=== PATIENT | female | born 1955 | race Caucasian/White ===

== ENCOUNTER 2018-10-14 10:17 | Emergency (ER) | payer MEDICARE ==
[2018-10-14 10:34] VITALS: TEMP 98.3
[2018-10-14] MEDS ORDERED: METOCLOPRAMIDE 5 MG/ML 2 ML VIAL IVP STA (11:14)
[2018-10-14] MEDS ORDERED: ORPHENADRINE 30 MG/ML 2 ML VIAL IVP STA (11:14)
[2018-10-14] MEDS ORDERED: diphenhydrAMINE 50 MG/ML 1 ML VIAL IVP STA (11:14)
[2018-10-14] MEDS ORDERED: ACETAMINOPHEN IV (For NPO) 1,000 MG in EMPTY BAG 1 BAG IVPB STA (11:14)
[2018-10-14] MEDS ORDERED: SODIUM CHLORIDE 0.9% 1,000 ML IV STA (11:14)
--- NOTE | 2018-10-14 11:26 | ED ---
Psych HPI - General Chief Complaint: Psychiatric Symptoms Stated Complaint: Headache Time Seen by Provider: 10/14/18 11:03 Source: patient, RN notes reviewed Mode of arrival: ambulatory Limitations: no limitations - History of Present Illness Initial Comments: This a 63-year-old female presents emergency Department with chief complaint of severe headache. Patient states she's had a for 5 days and which she has chronic migraines. Patient states she normally takes fierce that and a muscle relaxer. Patient states that it's not helping at this time. She does admit slight nausea no vomiting no diarrhea no constipation. Denies fever, chills, chest pain, shortness breath, focal weakness. Patient states that this is one of her worst headaches but was not a sudden onset of headache. Patient states it does feel typical for her headaches. Patient denies any blurred vision though she admits to photophobia. Patient states that the pain makes her so miserable that she does not want to live anymore though she states she is not suicidal. - Related Data Home Medications Medication Instructions Recorded Confirmed Amitriptyline HCl [Elavil] 100 mg PO HS 10/14/18 10/14/18 Atenolol [Tenormin] 50 mg PO DAILY 10/14/18 10/14/18 Butalb/APAP/Caff 50-325-40Mg 1 - 2 tab PO Q4H PRN 10/14/18 10/14/18 [Fioricet 50-325-40] Cholecalciferol (Vitamin D3) 2,000 unit PO DAILY 10/14/18 10/14/18 [Vitamin D3] Cyclobenzaprine [Flexeril] 10 mg PO TID 10/14/18 10/14/18 Diclofenac Sodium Gel [Voltaren 2 gm TOPICAL QID 10/14/18 10/14/18 Gel] Famotidine [Pepcid] 20 mg PO BID 10/14/18 10/14/18 Levothyroxine Sodium [Synthroid] 100 mcg PO DAILY 10/14/18 10/14/18 Venlafaxine HCl [Effexor XR] 75 mg PO DAILY 10/14/18 10/14/18 Allergies Allergy/AdvReac Type Severity Reaction Status Date / Time Sulfa (Sulfonamide Allergy Rash/Hives Verified 10/14/18 11:02 Antibiotics) STEROIDS AdvReac Rapid Uncoded 10/14/18 11:02 Heart Rate Review of Systems ROS Statement: Those systems with pertinent positive or pertinent negative responses have been documented in the HPI. ROS Other: All systems not noted in ROS Statement are negative. Past Medical History Past Medical History: Fibromyalgia, Hypertension, Osteoarthritis (OA), Thyroid Disorder Additional Past Medical History / Comment(s): Diverticulitis; migraines History of Any Multi-Drug Resistant Organisms: None Reported Past Surgical History: Hysterectomy, Orthopedic Surgery, Tonsillectomy Past Psychological History: Anxiety, Depression Smoking Status: Never smoker Past Alcohol Use History: None Reported Past Drug Use History: None Reported General Exam General appearance: alert, in no apparent distress Head exam: Present: atraumatic, normocephalic, normal inspection Eye exam: Present: normal appearance, PERRL, EOMI. Absent: scleral icterus, conjunctival injection, periorbital swelling ENT exam: Present: normal exam, normal oropharynx, mucous membranes moist Neck exam: Present: normal inspection, full ROM. Absent: tenderness, meningismus, lymphadenopathy Respiratory exam: Present: normal lung sounds bilaterally. Absent: respiratory distress, wheezes, rales, rhonchi, stridor Cardiovascular Exam: Present: normal rhythm, normal heart sounds. Absent: systolic murmur, diastolic murmur, rubs, gallop, clicks GI/Abdominal exam: Present: soft, normal bowel sounds. Absent: distended, tenderness, guarding, rebound, rigid Extremities exam: Present: other (Full range of motion neurovascular intact) Neurological exam: Present: alert, oriented X3, CN II-XII intact, reflexes normal, other (Finger to nose intact bilaterally without over shooting). Absent : motor sensory deficit Skin exam: Present: warm, dry, intact, normal color. Absent: rash Course Vital Signs 10/14/18 10/14/18 10:24 14:09 Temperature 98.3 F Pulse Rate 133 H 77 Respiratory 18 16 Rate Blood Pressure 154/102 143/91 O2 Sat by Pulse 93 L 98 Oximetry Medical Decision Making - Medical Decision Making 63-year-old female presented for headache. CT was obtained no acute abnormality. Patient is neurologically intact. Lab work was obtained no acute abnormality's. Patient does have a history migraine. Patient is improved after medications. She states her headache has resolved. Patient stated to triage that she felt that she cannot tolerate the pain that she wanted though she states she is not suicidal them in the room agrees that she has not. Patient is safe for discharge return parameters were discussed. - Lab Data Result diagrams: 10/14/18 11:40 10/14/18 11:40 Lab Results 10/14/18 10/14/18 Range/Units 11:40 11:40 WBC 8.4 (3.8-10.6) k/uL RBC 4.94 (3.80-5.40) m/uL Hgb 15.2 (11.4-16.0) gm/dL Hct 45.1 (34.0-46.0) % MCV 91.2 (80.0-100.0) fL MCH 30.7 (25.0-35.0) pg MCHC 33.6 (31.0-37.0) g/dL RDW 12.2 (11.5-15.5) % Plt Count 306 (150-450) k/uL Neutrophils % 63 % Lymphocytes % 27 % Monocytes % 6 % Eosinophils % 1 % Basophils % 0 % Neutrophils # 5.3 (1.3-7.7) k/uL Lymphocytes # 2.3 (1.0-4.8) k/uL Monocytes # 0.5 (0-1.0) k/uL Eosinophils # 0.1 (0-0.7) k/uL Basophils # 0.0 (0-0.2) k/uL Sodium 142 (137-145) mmol/L Potassium 4.4 (3.5-5.1) mmol/L Chloride 107 (98-107) mmol/L Carbon Dioxide 26 (22-30) mmol/L Anion Gap 9 mmol/L BUN 15 (7-17) mg/dL Creatinine 0.62 (0.52-1.04) mg/dL Est GFR (CKD-EPI)AfAm >90 (>60 ml/min/1.73 sqM) Est GFR (CKD-EPI)NonAf >90 (>60 ml/min/1.73 sqM) Glucose 92 (74-99) mg/dL Calcium 10.8 H (8.4-10.2) mg/dL Total Bilirubin 0.5 (0.2-1.3) mg/dL AST 40 H (14-36) U/L ALT 42 (9-52) U/L Alkaline Phosphatase 99 (38-126) U/L Total Protein 7.7 (6.3-8.2) g/dL Albumin 4.9 (3.5-5.0) g/dL - EKG Data EKG Comments: EKG performed at 13:08 sinus tachycardia with rate of 106 IA 1:30 QRS 78 QT/QTC 342/454 normal axis, normal intervals Disposition Clinical Impression: Migraine Disposition: HOME SELF-CARE Condition: Stable Instructions: Migraine Headache (ED) Additional Instructions: Please return to the Emergency Department if symptoms worsen or any other concerns. Is patient prescribed a controlled substance at d/c from ED?: No Referrals: Bessy Abebe MD [Primary Care Provider] - 1-2 days Jacklyn Martinez MD [REFERRING] - 1-2 days Time of Disposition: 15:07
[2018-10-14 12:10] LABS: Basophils % (A) 0 %; Eosinophils # (A) 0.1 k/uL (0-0.7); Eosinophils % (A) 1 %; HCT 45.1 % (34.0-46.0); HGB 15.2 gm/dL (11.4-16.0); Lymphocytes # (A) 2.3 k/uL (1.0-4.8); Lymphocytes % (A) 27 %; MCH 30.7 pg (25.0-35.0); MCHC 33.6 g/dL (31.0-37.0); MCV 91.2 fL (80.0-100.0); Mean Platelet Volume 6.9; Monocytes # (A) 0.5 k/uL (0-1.0); Monocytes % (A) 6 %; Neutrophils # (A) 5.3 k/uL (1.3-7.7); Neutrophils % (A) 63 %; Platelet Count 306 k/uL (150-450); RBC 4.94 m/uL (3.80-5.40); RDW 12.2 % (11.5-15.5); WBC 8.4 k/uL (3.8-10.6)
[2018-10-14 12:23] LABS: ALT 42 U/L (9-52); AST 40 U/L (14-36); Albumin 4.9 g/dL (3.5-5.0); Alkaline Phosphatase 99 U/L (38-126); Anion Gap 9 mmol/L; Blood Urea Nitrogen 15 mg/dL (7-17); Calcium 10.8 mg/dL (8.4-10.2); Carbon Dioxide 26 mmol/L (22-30); Chloride 107 mmol/L (98-107); Glucose 92 mg/dL (74-99); Potassium 4.4 mmol/L (3.5-5.1); Sodium 142 mmol/L (137-145); Total Bilirubin 0.5 mg/dL (0.2-1.3); Total Protein 7.7 g/dL (6.3-8.2)
--- NOTE | 2018-10-14 13:11 | CT ---
EXAMINATION TYPE: CT brain wo con DATE OF EXAM: 10/14/2018 COMPARISON: None HISTORY: Severe ARREOLA since Thursday CT DLP: 1078.[address] of the brain was performed. The ventricles, basal cisterns and sulci overlying the cerebral convexities demonstrate mild enlargem ent. There is no evidence for intracranial hemorrhage or sulcal effacement. There is decreased attenuation about the periventricular white matter and deep white matter of both c erebral hemispheres, compatible with chronic small vessel ischemia. Differential diagnosis does inclu de demyelination. No mass effects are seen.No midline shift. Osseous calvarium is intact. If symptoms persist consider MRI. IMPRESSION: 1. Age related atrophic and chronic small vessel ischemic change without acute intracranial process s een at this time.
[2018-10-14] MEDS ORDERED: BUTA/APAP/CAF/COD 50-325-40-30 CAP PO STA (14:02)
[2018-10-14] MEDS ORDERED: KETOROLAC 30 MG/ML 1 ML VIAL IVP STA (14:02)
[2018-10-14 14:13] VITALS: BP 143/91; PULSE 77; RESP 16
== END 2018-10-14 15:30 | disposition home or self-care (01) ==
LOC: EC 10:17
DX: G43.909 Migraine, unspecified, not intractable, without status migrainosus (principal); M79.7 Fibromyalgia; I10 Essential (primary) hypertension; M19.90 Unspecified osteoarthritis, unspecified site; E07.9 Disorder of thyroid, unspecified; F41.9 Anxiety disorder, unspecified; F32.9 Major depressive disorder, single episode, unspecified; Z79.1 Long term (current) use of non-steroidal anti-inflammatories (NSAID); Z79.899 Other long term (current) drug therapy; Z88.2 Allergy status to sulfonamides; Z88.8 Allergy status to other drugs, medicaments and biological substances
CPT/HCPCS: 99284; 96365; 96375 ×4; 36415; 93005; 80053; 85025; 70450; J1200; J2360; J2765; J1885; J0131

== ENCOUNTER → 2018-10-28 | Outpatient (CLI) | payer MEDICARE | END | disposition home or self-care (01) | LOC: LABWHC1 12:59 | PROVIDERS: ATTEND Psychiatry & Neurology Neurology | DX: Z51.81 Encounter for therapeutic drug level monitoring (principal) | CPT/HCPCS: 36415; 82565; 84520 ==

== ENCOUNTER → 2018-11-25 | Outpatient (CLI) | payer MEDICARE ==
--- NOTE | 2018-11-25 13:28 | US ---
EXAMINATION TYPE: US thyroid st tissue head/neck DATE OF EXAM: 11/25/2018 COMPARISON: NONE CLINICAL HISTORY: E03.9 Hypothyroid; Takes thyroid medicine GLAND SIZE: Right Lobe: 3.9 x 1.0 x 1.2 cm Overall Parenchyma: homogenous Left Lobe: 3.6 x 0.8 x 0.9 cm Overall Parenchyma: homogeneous Isthmus Thickness: 0.3 cm NODULES RIGHT: # of nodules measured on right: 1 largest of multiple small nodules 1. 0.5 X 0.4 x 0.3 cm hypoechoic mixed nodule at the lower pole with well-defined margins. This no dule is wider than tall and shows intranodular vascularity. LEFT: # of nodules measured on left: 1 largest of multiple small nodules 1. 0.4 X 0.3 x 0.2 cm hypoechoic mixed nodule at the upper pole with well-defined margins. This no dule is wider than tall and shows no intranodular vascularity. ISTHMUS: # of nodules measured in the isthmus: 0 Bilateral neck scanned: no evidence of lymphadenopathy. IMPRESSION: 1. Multinodular thyroid multiple subcentimeter nodules bilaterally
== END ==
LOC: RADUSWWP 12:14
PROVIDERS: ATTEND Family Medicine
DX: E04.2 Nontoxic multinodular goiter (principal)
CPT/HCPCS: 76536

== ENCOUNTER → 2019-01-28 | Outpatient (CLI) | payer MEDICARE ==
--- NOTE | 2019-01-28 08:49 | US ---
EXAMINATION TYPE: US abdomen complete DATE OF EXAM: 01/28/2019 COMPARISON: NONE CLINICAL HISTORY: R94.5 Abnormal LFTS. Abnormal labs. Hx of 2 liver bx- per patient, came back as fa tty liver. GB removed in 2003. EXAM MEASUREMENTS: Liver Length: 13.6 cm CBD: 1.3 cm CHD: 1.1 cm Spleen: 6.9 cm Right Kidney: 9.6 x 4.8 x 4.2 cm Left Kidney: 9.3 x 4.8 x 4.7 cm Pancreas: Head and tail not well visualized due to overlying bowel gas. Appears echogenic in appear ance. Main pancreatic duct = 2.0 mm, within normal limits Liver: Cystic appearing lesion seen in right lobe = 0.9 x 0.9 x 0.8 cm Gallbladder: Surgically absent Evidence for sonographic Velasco's sign: neg CBD: Appears dilated CHD: Appears dilated Spleen: Limited visualization due to shadow Right Kidney: wnl Left Kidney: wnl Upper IVC: wnl Abd Aorta: No AAA visualized The intrahepatic portion of the IVC and proximal abdominal aorta are within normal limits. There is no evidence of cholelithiasis. Common bile duct is unremarkable. The visualized portions of the white creas are homogenous. The spleen is unremarkable. Kidneys are symmetric and free of hydronephrosis. No renal lesions are seen. IMPRESSION: 1. Solitary 9 mm hepatic cyst. 2. Despite the known hepatic steatosis the liver appears sonographically homogeneous other than the h epatic cyst. Low-grade hepatic steatosis may be sonographically occult.
== END | disposition home or self-care (01) ==
LOC: RADUSWWP 07:57
PROVIDERS: ATTEND Family Medicine
DX: K76.89 Other specified diseases of liver (principal)
CPT/HCPCS: 76700

== ENCOUNTER → 2019-03-17 | Outpatient (CLI) | payer MEDICARE ==
[2019-03-17 16:59] LABS: T4, Free (Free Thyroxine) 1.2 ng/dL (0.80-1.80)
== END | disposition home or self-care (01) ==
LOC: LABWHC1 09:29
PROVIDERS: ATTEND Internal Medicine Endocrinology, Diabetes & Metabolism
DX: E04.2 Nontoxic multinodular goiter (principal); E03.8 Other specified hypothyroidism
CPT/HCPCS: 36415; 84439; 84443

== ENCOUNTER → 2019-06-06 | Outpatient (CLI) | payer MEDICARE ==
[2019-06-06 17:28] LABS: Anti-Smith Ab Interp NEGATIVE (NEGATIVE); Cyclic Citrull Pep IgG Unit <0.5 U/mL; Cyclic Citrullinated Pep IgG NEGATIVE (NEGATIVE); DNA Double-Stranded Indetermin (NEGATIVE); Scleroderma SC-70 Ab <0.2 AI
== END | disposition home or self-care (01) ==
LOC: LABWHC1 07:59
PROVIDERS: ATTEND Nurse Practitioner Family
DX: M25.50 Pain in unspecified joint (principal); I49.9 Cardiac arrhythmia, unspecified
CPT/HCPCS: 36415; 83516; 86038; 86200; 86225; 86235; 93005

== ENCOUNTER → 2019-10-19 | Outpatient (CLI) | payer MEDICARE | END | disposition home or self-care (01) | LOC: LABPAT 10:06 | PROVIDERS: ATTEND Orthopaedic Surgery | DX: Z01.812 Encounter for preprocedural laboratory examination (principal) | CPT/HCPCS: 87070 ==

== ENCOUNTER 2019-11-08 08:14 | Inpatient (IN) | payer MEDICARE ==
[2019-10-31 14:04] VITALS: BMI 27.1
--- NOTE | 2019-11-07 09:05 | HP ---
HISTORY AND PHYSICAL CHIEF COMPLAINT: Right shoulder pain. HISTORY OF PRESENT ILLNESS: The patient is a 64-year-old, right-hand dominant, disabled female who presents with progressive right shoulder pain for the past year. She is having pain with overhead use and activity. She has tried previous injections and therapy along with medications without much relief. She has a history of arthroscopy in 2013. PAST MEDICAL HISTORY: Significant for fibromyalgia, osteoporosis, hypertension, hypothyroidism, depression. PAST SURGICAL HISTORY: Significant for bilateral foot surgery, bilateral carpal tunnel release, cholecystectomy, left total knee arthroplasty, right shoulder arthroscopy, laparoscopy, colonoscopy, heart catheterization. CURRENT MEDICATIONS: 1. Amitriptyline. 2. Effexor. 3. Oxycodone. 4. Famotidine. 5. Synthroid. 6. Tenormin. ALLERGIES: To SULFA. FAMILY HISTORY: Significant for heart disease and cancer. SOCIAL HISTORY: Negative for current tobacco or alcohol use. 16 POINT REVIEW OF SYSTEMS: Otherwise reviewed and is noncontributory. PHYSICAL EXAMINATION: On examination, the patient is approximately 5 foot 1, 144 pounds of mesomorphic habitus. HEENT exam is nonfocal. She has limited cervical spine motion with positive Spurling's. On examination of her right shoulder, she is tender about the anterior glenohumeral joint. She has moderate subacromial crepitus. Active range of motion, forward elevation 40 degrees, external rotation with arms at side 20 degrees, internal rotation to the buttock. Passive forward elevation is 80 degrees. Impingement test and Neer test are positive. Light touch is diminished over the deltoid. Her distal neurovascular exam otherwise appears intact in the right upper extremity. X-rays of the right shoulder obtained in the office show moderate to severe glenohumeral joint osteoarthrosis with maintained humeral head to acromial distance. IMPRESSION: 1. Right glenohumeral joint osteoarthritis-symptomatic. 2. Cervical degenerative disc disease with radiculopathy. RECOMMENDATIONS: I talked to the patient at length regarding her condition and treatment options. At this point, she is quite symptomatic and opts to proceed with surgery. Will plan to proceed with right total shoulder arthroplasty. She did see a spine surgeon who recommended proceeding with shoulder surgery prior to any intervention regarding her cervical spine. Risks and benefits were discussed at length in layman's terms. MMODL / IJN: [id number] /
[~2019-11-08 08:14] MED LIST: ACETAMINOPHEN TAB 500 MG TAB PO ONE; DEXAMETHASONE SOD PHOSPHATE 10 MG/ML 1 ML VIAL IV ONE; LIDOCAINE 1% 20 ML VIAL (10MG/ML) FOR IV START INTRADERMA PRN; MELOXICAM 7.5 MG TAB PO ONE; METOCLOPRAMIDE 5 MG/ML 2 ML VIAL IVP PRN; MIDAZOLAM 2 MG/2 ML VIAL IV PRN; ONDANSETRON 4 MG/2 ML VIAL IVP ONE; TRANEXAMIC ACID 1,000 MG in SODIUM CHLORIDE 0.9% 100 ML IVPB ONE; fentaNYL (PF) 50 MCG/ML 2 ML AMP IVP PRN
[2019-11-08 12:32] VITALS: RESP 16
[2019-11-08] MEDS: LACTATED RINGERS 1,000 ML IV SCH (12:42)
[2019-11-08] MEDS ORDERED: fentaNYL (PF) 50 MCG/ML 2 ML AMP IV ONE (13:09)
[2019-11-08 13:11] LABS: Potassium 4.1 mmol/L (3.5-5.1)
--- NOTE | 2019-11-08 13:39 | P.ANPRN ---
Procedure Note - Anesthesia - Nerve Block Performed Right Interscalene Single Time Out Performed: Yes (1308) Date of Procedure: 11/08/19 Procedure Start Time: 13:08 Procedure Stop Time: 13:14 Location of Patient: PreOp Indication: Acute Post-Operative Pain, Requested by Surgeon (cali) Specifically requested for management of pain by DrAnnel: David Montes De Oca Sedation Type: Sedate with meaningful contact maintained Preparation: Sterile Prep Position: Supine Catheter: None Needle Types: Pajunk Needle Gauge: 21 Ultrasound used to visualize needle placement: Yes Ultrasound used to observe medication spread: Yes Injectate: Other (see comment) (Lido 2% with epi 15cc & Ropi 0.5% 15cc) Blood Aspirated: No Pain Paresthesia on Injection Noted: No Resistance on Injection: Normal Image Stored and Saved: Yes Events: Uneventful and Well Tolerated
[2019-11-08] MEDS ORDERED: SUCCINYLCHOLINE CHLORIDE 100 MG/5 ML SYR IV ONE (13:48)
[2019-11-08] MEDS ORDERED: GLYCOPYRROLATE 0.2 MG/ML 2 ML VIAL ONE (13:48)
[2019-11-08] MEDS ORDERED: LIDOCAINE 1% INJ 10MG/ML (20 ML MDV) ONE (13:48)
[2019-11-08] MEDS ORDERED: fentaNYL (PF) 50 MCG/ML 2 ML AMP ONE (13:48)
[2019-11-08] MEDS ORDERED: TRANEXAMIC ACID 1,000 MG/10 ML VIAL ONE (13:48)
[2019-11-08] MEDS ORDERED: ROCURONIUM BROMIDE 10 MG/ML 10 ML VIAL IV ONE (13:48)
[2019-11-08] MEDS ORDERED: SODIUM CHLORIDE 0.9% 100 ML BAG ONE (13:48)
[2019-11-08] MEDS ORDERED: ROPIVACAINE 5 MG/ML 30 ML VIAL ONE (13:48)
[2019-11-08] MEDS ORDERED: MIDAZOLAM 2 MG/2 ML VIAL ONE (13:48)
[2019-11-08] MEDS ORDERED: PHENYLEPHRINE-0.9% NACL SYG 1 MG/10 ML SYRINGE ONE (13:48)
[2019-11-08] MEDS ORDERED: LIDOCAINE 2%-EPI 1:100,000 20 ML VIAL ONE (13:48)
[2019-11-08] MEDS ORDERED: PROPOFOL 10 MG/ML 20 ML VIAL IV ONE (13:48)
[2019-11-08] MEDS ORDERED: NEOSTIGMINE 1 MG/ML 10 ML VIAL ONE (13:48)
[2019-11-08] MEDS ORDERED: ceFAZolin 3,000 MG in SODIUM CHLORIDE 0.9% IRRIGATIO 3,000 ML IRRIGATION ONE (14:17)
[2019-11-08] MEDS ORDERED: ONDANSETRON 4 MG/2 ML VIAL IVP PRN (15:22)
[2019-11-08] MEDS ORDERED: HYDROmorphone 0.5 MG/0.5 ML SYRINGE IVP PRN (15:22)
[2019-11-08] MEDS ORDERED: LACTATED RINGERS 1,000 ML IV ONE ×2 (15:23)
[2019-11-08] MEDS ORDERED: ACETAMINOPHEN TAB 500 MG TAB PO PRN (15:25)
--- NOTE | 2019-11-08 15:49 | P.OP ---
Date of Procedure: 11/08/19 Preoperative Diagnosis: Right glenohumeral joint osteoarthrosissevere Postoperative Diagnosis: Same Procedure(s) Performed: Right total shoulder arthroplasty Implants: [employer] size 10 press-fit humeral stem with size 1 body, 40 mm pegged cemented glenoid, 44 x 15 mm eccentric humeral head. Anesthesia: susie DELACRUZ Surgeon: David Montes De Oca Security And Compliance Analyst #1: Angelo Lamb Estimated Blood Loss (ml): 150 Pathology: other (Humeral head) Condition: stable Disposition: PACU Indications for Procedure: The patient is a 64-year-old female who presents with progressive right shoulder pain secondary osteoarthrosis despite conservative measures. A discussion of the risks and benefits of operative intervention versus continued conservative measures. It was made with patient. She opted to proceed with surgery. Operative risks to include infection, neurovascular injury, development of blood clots, possible component loosening, possible fracture, possible instability and need for subsequent procedures was discussed. Informed consent was obtained. Operative Findings: As below Description of Procedure: The patient was brought to the operating room, and after induction of general anesthesia was placed in the beachchair position. The bony prominences were appropriately padded. The right upper extremity was prepped and draped in normal fashion. A deltopectoral incision was then made lateral to the coracoid process extending approximately 12 cm. The skin was incised sharply. Subcutaneous tissues were divided bluntly. Electrocautery was used for hemost asis. The deltopectoral interval was identified and the cephalic vein gently retracted laterally with the deltoid. Subdeltoid adhesions were bluntly dissected. A self-retaining retractor was placed. The clavipectoral fascia was opened and the conjoined tendon gently retracted medially. The upper one third of the pectoralis major was released to help facilitate exposure. The biceps was identified and the sheath was opened. The rotator interval was opened. The biceps was tenotomized and allowed to retract distally. The lesser tuberosity osteotomy was performed with a small sagittal saw. This completed with an osteotome. The humeral head was then exposed releasing the capsule off the humeral neck. The shoulder was gently dislocated. A starting hole was made in the head in line with the humeral shaft. The shaft was reamed by hand up to 10 mm. There is good distal chatter. The cutting guide was placed planning on a cut flush with the rotator cuff insertion and 30 of retroversion. The cutting block was pinned in place. The humeral head cut was then made. This measured most appropriately at 44 x 15 mm. Residual inferior osteophytes were carefully removed flush with the [place] cortical bone. A posterior glenoid retractor was placed. The glenoid was then exposed releasing the labrum from the 12-6 o'clock position. Residual labral tissue was removed. The glenoid sized most appropriate 40 mm. A guidewire was then inserted planning on the appropriate version. The glenoid was reamed down to a bleeding bony surface. The central pedicle was drilled. The alignment guide was placed in the peripheral peg holes drilled. The trial size 40 mm glenoid was placed and was fully seated. There was good anterior to posterior and inferior to superior fit. The trial component was removed. Pulsatile lavage was utilized. The bony surface was dried. The peripheral peg holes were then pressurized with cement utilizing a syringe. Excess cement was removed. A central peg glenoid was then placed and was fully seated. This was gently impacted. This was held in place until the cement had sufficiently hardened. Attention was then paid again towards preparing the proximal humerus. The appropriate broach was placed in 30 of retroversion and was fully seated. An eccentric 44 x 15 mm humeral head was placed. The shoulder was gently reduced. It was taken through a range of motion. It was felt to be stable in flexion and extension with internal and external rotation. I felt there was adequate tenriism of soft tissue tension. The shoulder was gently dislocated. The trial components were then removed. A #2 Ethibond was placed laterally for reattachment of the lesser tuberosity. The humeral stem was inserted in 30 of retroversion and was fully seated. There was good rotational stability. The eccentric 44 x 15 mm humeral head was gently impacted. The shoulder was then gently reduced and taken through range of motion and was felt to be stable. Pulsatile lavage was utilized. Lesser tuberosity was reattached utilizing #2 Ethibond suture. The rotator interval was closed with #2 Ethibond suture. She had minimal drainage at this point therefore a deep drain was not placed. The deltopectoral interval was closed with interrupted 2-0 Vicryl sutures. The subcu tissues were reapproximated with interrupted 2-0 Vicryl sutures. The skin was reprepped with 3-0 subcuticular Prolene suture. Steri-Strips were applied. A sterile dressing was applied in addition to a sling. The patient was then awoken from general anesthesia and transferred to recovery room in good condition. Blood loss was estimated at 150 mL. No complications were incurred. Sponge and needle counts were correct at the end the case. Brennon VELOZ assisted during the case to include the major components such as exposure, bone resection, implantation, and closure.
[2019-11-08] MEDS: HYDROmorphone 0.5 MG/0.5 ML SYRINGE IVP PRN ×4 (16:41→17:19)
--- NOTE | 2019-11-08 16:44 | XR ---
Right shoulder. HISTORY: Right shoulder arthroplasty Single frontal view of the right shoulder Patient is status post right shoulder arthroplasty. There is anatomic alignment. Lucency present in t he soft tissues. Right lung apex is unremarkable as visualized. There are overlying artifacts. Bone m ineralization is reduced. IMPRESSION: Orthopedic follow-up.
[2019-11-08] MEDS: traMADol 50 MG TAB PO SCH ×2 (19:22→21:22)
[2019-11-08] MEDS: HYDROmorphone 1 MG/ML 1 ML SYRINGE IVP PRN ×2 (19:24→22:52)
[2019-11-08] MEDS: HYDROcodone/APAP 7.5-325MG 1 EACH TAB PO PRN (21:21)
--- NOTE | 2019-11-08 21:32 | P.CONS ---
History of Present Illness - Reason for Consult Consult date: 11/08/19 - History of Present Illness The patient is a 64-year-old female with a PMH of fibromyalgia, hypertension, hypothyroidism, and depression who was admitted to the hospital for scheduled right shoulder arthroplasty. The patient reports that she had been struggling with right shoulder pain due to osteoarthritis for many years. Conservative measures including pain control had failed. The patient underwent the procedure uneventfully earlier today. She was seen postoperatively on the surgical unit. She reported continued pain, 6 out of 10 of the right shoulder. She denied any additional complaints. She denied chest pain, shortness of breath, nausea, vomiting, fever, chills. She denied any numbness or tingling of the right arm. Review of Systems Pertinent positives and negatives as discussed in HPI, a complete review of systems was performed and all other systems are negative. Past Medical History Past Medical History: Fibromyalgia, Hypertension, Osteoarthritis (OA), Thyroid Disorder Additional Past Medical History / Comment(s): Diverticulitis; migraines History of Any Multi-Drug Resistant Organisms: None Reported Past Surgical History: Cholecystectomy, Hysterectomy, Orthopedic Surgery, Tonsillectomy Additional Past Surgical History / Comment(s): left knee arthroscopy x 2, left knee replacement, kd carpal tunnel, kd feet bunionectomy, arthroscopy rt shoulder Past Anesthesia/Blood Transfusion Reactions: No Reported Reaction Past Psychological History: Anxiety, Depression Smoking Status: Never smoker Past Alcohol Use History: None Reported Past Drug Use History: None Reported - Past Family History Father Family Medical History: Cancer Mother Family Medical History: Cancer Medications and Allergies Home Medications Medication Instructions Recorded Confirmed Type Amitriptyline HCl [Elavil] 100 mg PO PC-SUPPER 10/14/18 11/08/19 History Atenolol [Tenormin] 50 mg PO PC-SUPPER 10/14/18 11/08/19 History Butalb/APAP/Caff 50-325-40Mg 1 - 2 tab PO Q4H PRN 10/14/18 11/08/19 History [Fioricet 50-325-40] Cholecalciferol (Vitamin D3) 2,000 unit PO DAILY 10/14/18 11/08/19 History [Vitamin D3] Diclofenac Sodium Gel [Voltaren 2 gm TOPICAL QID 10/14/18 11/08/19 History Gel] Famotidine [Pepcid] 20 mg PO BID 10/14/18 11/08/19 History Amoxicillin(Dose Unknown) 1 tab PO DIRECTED PRN 10/31/19 11/08/19 History Levothyroxine Sodium [Synthroid] 88 mcg PO DAILY 10/31/19 11/08/19 History QUEtiapine XR [SEROquel XR] 300 mg PO HS 10/31/19 11/08/19 History Sertraline [Zoloft] 100 mg PO DAILY 10/31/19 11/08/19 History Allergies Allergy/AdvReac Type Severity Reaction Status Date / Time Sulfa (Sulfonamide Allergy Severe Rash/Hives Verified 11/08/19 12:26 Antibiotics) STEROIDS AdvReac Rapid Uncoded 11/08/19 12:26 Heart Rate Physical Exam Vitals: Vital Signs Temp Pulse Resp BP Pulse Ox 11/08/19 17:15 68 16 124/68 96 11/08/19 17:00 83 16 120/68 96 11/08/19 16:45 82 16 149/81 96 11/08/19 16:30 63 16 169/94 96 11/08/19 16:14 70 16 163/92 97 11/08/19 15:59 72 16 170/92 97 11/08/19 15:44 98 F 100 16 140/100 92 L 11/08/19 12:31 98.2 F 103 H 16 136/86 97 Intake and Output 11/08/19 11/08/19 11/08/19 06:59 14:59 22:59 Intake Total 351 100 Output Total 150 Balance 351 -50 Intake: IV 351 100 Output: Estimated Blood Loss 150 Other: Weight 65.1 kg 65.1 kg General: non toxic, no distress, appears at stated age, normal weight Derm: no unusual rashes/lesions no unusual ecchymoses, warm, dry Head: atraumatic, normocephalic, symmetric Eyes: EOMI, no lid lag, anicteric sclera, pupils equal round reactive to light ENT: Nose and ears atraumatic, no thrush, no pharyngeal erythema Neck: No thyromegaly, no cervical lymphadenopathy, trachea midline, supple Mouth: no lip lesion, mucus membranes moist Cardiovascular: S1S2 reg, no murmur, positive posterior tibial pulse bilateral, no edema, capillary refill less than 2 seconds Lungs: CTA bilateral, no rhonchi, no rales , no accessory muscle use Abdominal: soft, nontender to palpation, no guarding, no appreciable organomegaly, normal bowel sounds Ext: Right shoulder dressing in place, no gross muscle atrophy, muscle strength 5 out of 5 in all extremities other than the right arm, no contractures Neuro: CN II-XI grossly intact, light touch intact all 4 extremities, finger to nose within normal limits Psych: Alert, oriented, appropriate affect Results CBC & Chem 7: 11/08/19 12:35 Labs: Abnormal Lab Results - Last 24 Hours (Table) 11/08/19 Range/Units 12:35 Chloride 108 H (98-107) mmol/L Assessment and Plan Plan: Right shoulder osteoarthritis status post arthroplasty -Management including pain control as per the surgical service Chronic conditions: Hypertension, hypothyroidism, depression, fibromyalgia -Continue with home meds: Atenolol, Zoloft, Seroquel, Synthroid
[2019-11-09] MEDS: HYDROmorphone 1 MG/ML 1 ML SYRINGE IVP PRN ×3 (02:02→08:16)
[2019-11-09] MEDS: HYDROcodone/APAP 7.5-325MG 1 EACH TAB PO PRN ×2 (03:27→09:41)
[2019-11-09] MEDS: LACTATED RINGERS 1,000 ML IV SCH (04:58)
[2019-11-09] MEDS ORDERED: LEVOTHYROXINE 88 MCG TAB PO SCH (06:30)
[2019-11-09 08:19] LABS: Basophils % (A) 1 %; Eosinophils # (A) 0.1 k/uL (0-0.7); Eosinophils % (A) 2 %; HCT 36.1 % (34.0-46.0); HGB 11.3 gm/dL (11.4-16.0); Lymphocytes # (A) 1.3 k/uL (1.0-4.8); Lymphocytes % (A) 21 %; MCH 31.7 pg (25.0-35.0); MCHC 31.3 g/dL (31.0-37.0); MCV 101.3 fL (80.0-100.0); Mean Platelet Volume 8.4; Monocytes # (A) 0.7 k/uL (0-1.0); Monocytes % (A) 11 %; Neutrophils % (A) 63 %; Platelet Count 202 k/uL (150-450); RBC 3.57 m/uL (3.80-5.40); RDW 12.5 % (11.5-15.5); WBC 6.3 k/uL (3.8-10.6)
[2019-11-09] MEDS: traMADol 50 MG TAB PO SCH ×2 (08:19→12:37)
[2019-11-09] MEDS ORDERED: SERTRALINE 100 MG TAB PO SCH (09:00)
[2019-11-09] MEDS ORDERED: ASPIRIN 325 MG TAB PO SCH (09:00)
[2019-11-09] MEDS ORDERED: HYDROcodone/APAP 7.5-325MG 1 EACH TAB PO STA (10:00)
[2019-11-09] MEDS ORDERED: HYDROcodone/APAP 7.5-325MG 1 EACH TAB PO PRN (10:00)
--- NOTE | 2019-11-09 10:58 | P.PN ---
Subjective Patient was seen and examined and chart was reviewed. Patient is coming for elective right shoulder replacement. Past medical history includes hypertension for which she takes atenolol, hypothyroidism on levothyroxine and depression and fibromyalgia with medications like Seroquel and Zoloft. She is doing very well this morning has no acute complaints. Blood work this morning is stable and vital signs are stable. Objective - Vital Signs Vital signs: Vital Signs Temp 98.3 F 11/09/19 07:00 Pulse 76 11/09/19 07:00 Resp 16 11/09/19 08:20 BP 146/82 11/09/19 07:00 Pulse Ox 98 11/09/19 07:00 Intake & Output 11/08/19 11/09/19 11/09/19 18:59 06:59 18:59 Intake Total 451 460 Output Total 150 1200 Balance 301 -740 Weight 65.1 kg Intake: IV 451 Intake, IV Titration 460 Amount Lactated Ringers 1,000 ml 360 @ 40 mls/hr IV .Q24H [facility] Rx#:[id number] ceFAZolin 2 gm In Sodium 100 Chloride 0.9% 50 ml @ 100 mls/hr IVPB ONCE ONE Rx# :[id number] Output: Urine 1200 Estimated Blood Loss 150 Other: Voiding Method Toilet Toilet # Voids 5 - Exam Vital Signs: I have reviewed the vital signs. GENERAL: Well-nourished, Well-developed , no apparent distress, cooperative Eyes: PERRL, extraoculry movements intact, clear conjunctiva Head: : Atraumatic external nose and ears, oropharyngeal mucosa is moist without lesions or exudates Neck: Symmetric, trachea midline, No thyromegaly, no masses or neck vain pulsation, no neck rigidity CVS: +S1/S2, No murmurs or gallops. Peripheral pulses 2+ and equal in all extremities. RESP: Unlabored respiratory effort. Clear to auscultation bilaterally. Abdomen: Bowel sounds present in all 4 quadrants, Soft to palpation, Nontender/Nondistended, No hepatosplenomegaly, no hernias or masses, no CVA tnderness Musculoskeletal: Extremities w/o deformity, No cyanosis or clubbing, no joint swelling right shoulder in sling Skin: Warm, Dry. 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 Hypertension Blood pressure has been stable Continue Tenormin 2. Hypothyroidism Continue levothyroxine 3. Bipolar disorder Consultants or 4. Fibromyalgia Ultram 5. End-stage glenohumeral osteoarthritis Status post right shoulder replacement Patient is stable from a medicine service standpoint. I do not anticipate changing her home medications and discharge. He would only recommend that patient discharged home on lower dose of aspirin but again patient discussed thi s with primary care physician upon discharge.
--- NOTE | 2019-11-09 11:16 | P.PN ---
Subjective Progress Note Date: 11/09/19 Principal diagnosis: Status post right total shoulder arthroplasty Patient evaluated at bedside today, she is resting in her hospital bed. She does note increased discomfort involving the right shoulder. She is quite agitated at bedside, she believes some of the antidepressant medication she takes at night was not given the night prior. She denies any chest pain, shortness of breath, fever or chills. Objective - Vital Signs Vital signs: Vital Signs Temp 98.3 F 11/09/19 07:00 Pulse 76 11/09/19 07:00 Resp 16 11/09/19 08:20 BP 146/82 11/09/19 07:00 Pulse Ox 98 11/09/19 07:00 Intake & Output 11/08/19 11/09/19 11/09/19 18:59 06:59 18:59 Intake Total 451 460 Output Total 150 1200 Balance 301 -740 Weight 65.1 kg Intake: IV 451 Intake, IV Titration 460 Amount Lactated Ringers 1,000 ml 360 @ 40 mls/hr IV .Q24H [facility] Rx#:[id number] ceFAZolin 2 gm In Sodium 100 Chloride 0.9% 50 ml @ 100 mls/hr IVPB ONCE ONE Rx# :[id number] Output: Urine 1200 Estimated Blood Loss 150 Other: Voiding Method Toilet Toilet # Voids 5 - Exam Right upper extremity: Postoperative bandage removed, incision clean, dry and intact Minimal soft tissue swelling and ecchymosis present Sensation to light touch set extremities intact Distal neurovascular exam is intact - Labs CBC & Chem 7: 11/09/19 07:29 11/08/19 12:35 Labs: Abnormal Lab Results - Last 24 Hours (Table) 11/08/19 11/09/19 Range/Units 12:35 07:29 RBC 3.57 L (3.80-5.40) m/uL Hgb 11.3 L (11.4-16.0) gm/dL MCV 101.3 H (80.0-100.0) fL Chloride 108 H (98-107) mmol/L Assessment and Plan Plan: Assessment: Postop day #1 status post right total shoulder arthroplasty Plan: Pain control, did increase her Bennett 7.5 mg/325 mg 2 every 6 hours, continue tramadol. Recommend icing and elevating Continue use of sling GI and DVT prophylaxis, patient milligrams at home, continue with aspirin 325 mg Medical recommendations Pending pain control, hopeful discharge to home today Time with Patient: Less than 30
[2019-11-09] MEDS ORDERED: hydrOXYzine PAMOATE 25 MG CAP PO PRN (11:56)
--- NOTE | 2019-11-09 12:28 | P.DS ---
Providers Date of admission: 11/08/19 11:52 Expected date of discharge: 11/09/19 Attending physician: David Montes De Oca Consults: 11/08/19 15:26 Consult Physician Routine Consulting Provider: Gabriele Jung Consult Reason/Comments: Medical Management Do you want consulting provider notified?: Yes Primary care physician: Gabriele Jung MD Hospital Course: Date of admission: 11/08/2019 Date of discharge: 11/09/2019 Admission diagnosis: Status post right total shoulder arthroplasty Discharge diagnosis: Same Attending physician: Dr. Montes De Oca Surgical procedures: Right total shoulder arthroplasty Brief history: Patient is a 64-year-old female with a history of progressive primary right shoulder osteoarthritis. At this point patient has failed conservative treatment measures and has opted to proceed with a elective right total shoulder arthroplasty. Hospital course: Details of patient's surgery can be found in operative report. Patient tolerated the procedure well and was subsequently transported to orthopedic floor. Patient's orthopeidc and medical care was provided daily. Patient had daily laboratory tests performed for evaluation of overall blood counts. Patient had daily physical therapy to include strengthening range of motion as well as education with walker ambulation. Patient was treated with Aspirin for their postoperative DVT prophylaxis during their inpatient stay. Patient was noted to have a relatively uneventful postoperative course. Patient reported satisfactory pain control with oral pain medications by postoperative day 0. Patient showed satisfactory progress with physical therapy. Patient moved steadily through the program and had no difficulty meeting the goals by postoperative day 1. Given patient's otherwise satisfactory course and having met physical therapy goals, plan is to discharge patient home on postoperative day 1. Discharge condition/disposition: Patient will be discharged home in stable condition. Discharge medications: Instructions are given on resumption of patient's normal daily medications per primary care recommendation, in addition patient will be prescribed Percocet 5 mg/325 mg, aspirin 325 mg. Discharge instructions: 1. Wound care and infection precautions, keep incision dry and covered while showering, no lotions, creams, moisturizers. No soaking, tubs, pools, hottubs. Do not scrub over the incision. 2. Utilize arm sling 3. Utilize compression sleeve until seen at first follow up appointment. 4. Pain meds and anticoagulants per prescription. 5. Pain medication has potential to cause constipation. Increase oral fluid and fiber intake. Contact primary care provider if you have not had a bowel movement within 48 hours after discharge 6. No anti-inflammatory medication until discussed at first post operative visit, this including Motrin, Aleve, Mobic, Diclofenac. 7. Follow up in office at 2 weeks postop with Brennon Lamb PA-C 8. Follow up with your primary care doctor 7-10 days after discharge. 9. Contact [facility] with any questions, . Procedures: Right total shoulder arthroplasty Patient Condition at Discharge: Good Plan - Discharge Summary Discharge Rx Participant: Yes New Discharge Prescriptions: New Aspirin 325 mg PO DAILY #30 tab oxyCODONE-APAP 5-325MG [Percocet 5-325 mg] 1 - 2 tab PO Q6HR PRN 7 Days #56 tab PRN Reason: Pain No Action Famotidine [Pepcid] 20 mg PO BID Diclofenac Sodium Gel [Voltaren Gel] 2 gm TOPICAL QID Butalb/APAP/Caff 50-325-40Mg [Fioricet 50-325-40] 1 - 2 tab PO Q4H PRN PRN Reason: Pain Atenolol [Tenormin] 50 mg PO PC-SUPPER Amitriptyline HCl [Elavil] 100 mg PO PC-SUPPER Cholecalciferol (Vitamin D3) [Vitamin D3] 2,000 unit PO DAILY QUEtiapine XR [SEROquel XR] 300 mg PO HS Sertraline [Zoloft] 100 mg PO DAILY Levothyroxine Sodium [Synthroid] 88 mcg PO DAILY Amoxicillin(Dose Unknown) 1 tab PO DIRECTED PRN PRN Reason: dental work Discharge Medication List Amitriptyline HCl [Elavil] 100 mg PO PC-SUPPER 10/14/18 [History] Atenolol [Tenormin] 50 mg PO PC-SUPPER 10/14/18 [History] Butalb/APAP/Caff 50-325-40Mg [Fioricet 50-325-40] 1 - 2 tab PO Q4H PRN 10/14/18 [History] Cholecalciferol (Vitamin D3) [Vitamin D3] 2,000 unit PO DAILY 10/14/18 [History] Diclofenac Sodium Gel [Voltaren Gel] 2 gm TOPICAL QID 10/14/18 [History] Famotidine [Pepcid] 20 mg PO BID 10/14/18 [History] Amoxicillin(Dose Unknown) 1 tab PO DIRECTED PRN 10/31/19 [History] Levothyroxine Sodium [Synthroid] 88 mcg PO DAILY 10/31/19 [History] QUEtiapine XR [SEROquel XR] 300 mg PO HS 10/31/19 [History] Sertraline [Zoloft] 100 mg PO DAILY 10/31/19 [History] Aspirin 325 mg PO DAILY #30 tab 11/09/19 [Rx] oxyCODONE-APAP 5-325MG [Percocet 5-325 mg] 1 - 2 tab PO Q6HR PRN 7 Days #56 tab 11/09/19 [Rx] Follow up Appointment(s)/Referral(s): Angelo Lamb PAC [PHYSICIAN [employer]] - 11/25/19 1:50 pm Gabriele Jung MD [Primary Care Provider] - 11/11/19 9:30 am Activity/Diet/Wound Care/Special Instructions: Orthopedic Discharge Instructions: 1. Wound care and infection precautions, keep incision dry and covered while showering, no lotions, creams, moisturizers. No soaking, pools, hot tubs. Do not scrub over incision. 2. Utilize arm sling 3. Ice and elevate when necessary. Do not exceed 20 minutes per hour with ice pack. 4. Utilize compression sleeve until seen at first follow up appointment. 5. Pain meds and anticoagulants per prescription. 6. Pain medication has potential to cause constipation. Increase oral fluid and fiber intake. Contact primary care provider if you have not had a bowel movement within 48 hours after discharge. 7. No anti-inflammatory medication until discussed at first post operative visit, this including Motrin, Aleve, Mobic, Diclofenac. 8. Follow up in office at 2 weeks postop with Brennon Lamb PA-C 9. Follow up with your primary care doctor 7-10 days after discharge. 10. Contact [facility] with any questions, . Discharge Disposition: HOME SELF-CARE
[2019-11-09 15:36] VITALS: BP 144/84; PULSE 83; TEMP 98.4
[2019-11-09] MEDS ORDERED: ATENOLOL 50 MG TAB PO SCH (18:30)
[2019-11-09] MEDS ORDERED: QUEtiapine 50 MG TAB PO SCH (21:00)
== END 2019-11-09 16:08 | disposition home or self-care (01) | DRG 483 ==
LOC: 2ORMAIN 11:52 → 4SSUR 15:39
PROVIDERS: ADMIT Orthopaedic Surgery; ATTEND Orthopaedic Surgery
PROC: 0RRJ0JZ Replacement of Right Shoulder Joint with Synthetic Substitute, Open Approach (ICD-10-PCS; principal; 2019-11-08 13:30)
DX: M19.011 Primary osteoarthritis, right shoulder (principal); M81.0 Age-related osteoporosis without current pathological fracture; M79.7 Fibromyalgia; I10 Essential (primary) hypertension; E03.9 Hypothyroidism, unspecified; M50.10 Cervical disc disorder with radiculopathy, unspecified cervical region; G43.909 Migraine, unspecified, not intractable, without status migrainosus; K76.0 Fatty (change of) liver, not elsewhere classified; F41.9 Anxiety disorder, unspecified; F31.9 Bipolar disorder, unspecified; Z79.890 Hormone replacement therapy; Z79.899 Other long term (current) drug therapy; Z90.49 Acquired absence of other specified parts of digestive tract; Z96.652 Presence of left artificial knee joint; Z98.890 Other specified postprocedural states; Z87.19 Personal history of other diseases of the digestive system; Z90.710 Acquired absence of both cervix and uterus; Z88.8 Allergy status to other drugs, medicaments and biological substances; Z88.2 Allergy status to sulfonamides; Z82.49 Family history of ischemic heart disease and other diseases of the circulatory system; Z80.9 Family history of malignant neoplasm, unspecified
CPT/HCPCS: 64415; 76942; 80051; 85025; 88300

== ENCOUNTER → 2020-07-17 | Outpatient (CLI) | payer MEDICARE ==
--- NOTE | 2020-07-17 14:05 | BD ---
EXAMINATION TYPE: Axial Bone Density DATE OF EXAM: 07/17/2020 COMPARISON: NONE CLINICAL HISTORY: Postmenopausal female. Disorder of bone. Height: 5 FT 1/2 IN Weight: 147 FRAX RISK QUESTIONS: Alcohol (3 or more units per day): NO Family History (Parent hip fracture): NO Glucocorticoids (More than 3mos): NO (Ex: prednisone, prednisolone, methylprednisolone, dexamethasone, and hydrocortisone). History of Fracture in Adulthood: NO Secondary Osteoporosis: 1. Type 1 Diabetes: NO 2. Hyperthyroidism: NO 3. Menopause before 45: YES 4. Malnutrition: NO 5. Chronic liver disease: FATTY Rheumatoid Arthritis: NO Current Tobacco Use: NO RISK FACTORS HISTORY OF: When: Family History of Osteoporosis: YES Active: YES Postmenopausal woman: TOTAL HYST AGE 28 Poor Health: FAIR MEDICATIONS: Thyroid Medications: YES Which medication: SYNTHROID How Long: APPROX 15 YEARS Additional Medications: SYNTHROID, ATENOLOL,AMITRIPTYLINE, ZOLOFT, VOLTAREN, [id number] N-CODIENE,SEROQUEL,FAMOTIDINE, VIT D Additional History: ARIEL CARPAL TUNNEL SURG EXAM MEASUREMENTS: Bone mineral densitometry was performed using the [employer] System. Bone mineral density as measured about the Lumbar spine is: ----- L1-L4(G/cm2): 0.926 T Score Values are as follows: ----- L2: -3.1 ----- L3: -2.1 ----- L4: -1.0 ----- L1-L4: -2.1 BASELINE Bone mineral density about the R hip (g/cm2): 0.786 Bone mineral density about the L hip (g/cm2): 0.801 T Score values are as follows: -----R Neck: -1.8 -----L Neck: -1.7 -----R Total: -1.3 -----L Total: -1.9 BASELINE IMPRESSION: Osteopenia (T Score between -2.5 and -1). There is slightly increased risk of fracture and the patient may be considered for treatment. Re-Screen 2-5 years. NOTE: T-SCORE=SD OF THE YOUNG ADULT MEAN.
--- NOTE | 2020-07-18 11:21 | MM ---
Reason for exam: screening (asymptomatic). Last mammogram was performed 1 year and 10 months ago. History: Patient is postmenopausal. Family history of breast cancer in mother at age 50. Physical Findings: A clinical breast exam by your physician is recommended on an annual basis and results should be correlated with mammographic findings. MG 3D Screening Mammo W/Cad Bilateral CC and MLO view(s) were taken. Prior study comparison: September 08, 2018, mammogram, performed at [facility]. September 02, 2017, mammogram, performed at [facility]. The breast tissue is heterogeneously dense. This may lower the sensitivity of mammography. There is no discrete abnormality. No significant changes when compared with prior studies. ASSESSMENT: Negative, BI-RAD 1 RECOMMENDATION: Routine screening mammogram of both breasts in 1 year.
== END | disposition home or self-care (01) ==
LOC: RADMAMWWP 10:01
PROVIDERS: ATTEND Family Medicine
DX: Z12.31 Encounter for screening mammogram for malignant neoplasm of breast (principal); M85.80 Other specified disorders of bone density and structure, unspecified site; Z78.0 Asymptomatic menopausal state
CPT/HCPCS: 77063; 77067; 77080

== ENCOUNTER → 2020-10-25 | Outpatient (CLI) | payer MEDICARE ==
--- NOTE | 2020-10-25 09:22 | US ---
EXAMINATION TYPE: US thyroid st tissue head/neck DATE OF EXAM: 10/25/2020 COMPARISON: US November 25, 2018 CLINICAL HISTORY: E04.1 Thyroid nodule. Difficulty swallowing GLAND SIZE: Right Lobe: 3.7 x 1.4 x 1.1 cm Overall Parenchyma: heterogenous Left Lobe: 3.4 x 0.7 x 0.8 cm Overall Parenchyma: heterogeneous Isthmus Thickness: 0.2 cm NODULES RIGHT: # of nodules measured on right: 1 1. 0.5 X 0.3 x 0.4 cm solid or almost completely solid, hypoechoic nodule, which is wider than tall , with smooth margins, without echogenic foci. Prior size: 0.5 x 0.3 x 0.4 cm LEFT: # of nodules measured on left: 1 1. 0.4 X 0.3 x 0.4 cm solid or almost completely solid, hypoechoic nodule, which is wider than tall , with smooth margins, without echogenic foci. Prior size: not visualized on prior Bilateral neck scanned, no evidence of lymphadenopathy. Small, sub-centimeter nodules bilaterally. Heterogeneous small size thyroid with small nodules marked on today's study. IMPRESSION: As above. No worrisome greater than 1 cm nodules noted.
--- NOTE | 2020-10-25 10:55 | FL ---
EXAMINATION TYPE: FL barium swallow DATE OF EXAM: 10/25/2020 CLINICAL HISTORY: GERD. Proximal dysphasia. TECHNIQUE: A double contrast esophagram is performed utilizing air and barium. A total of 23 second s of fluoroscopic time was utilized during procedure and 84 images obtained COMPARISON: None FINDINGS: The esophagus shows satisfactory motility and emptying into the stomach. No diverticulum. No suspicious intraluminal mass. No evidence of hiatal hernia or stricture noted. No significant partha roesophageal reflux was seen during real time performance of this study. Incidental note is made of m etallic hardware of right shoulder surgery and cholecystectomy clips. IMPRESSION: No significant abnormality is seen to account for patient's symptoms.
== END | disposition home or self-care (01) ==
LOC: RADUSWWP 08:39
PROVIDERS: ATTEND Otolaryngology
DX: E04.2 Nontoxic multinodular goiter (principal); K21.9 Gastro-esophageal reflux disease without esophagitis; R13.10 Dysphagia, unspecified
CPT/HCPCS: 74220; 76536

== ENCOUNTER 2020-11-21 08:54 | Day surgery (SDC) | payer MEDICARE ==
[2020-11-19 15:19] VITALS: BMI 28.3
[~2020-11-21 08:54] MED LIST changes: -ACETAMINOPHEN TAB 500 MG TAB PO ONE; -DEXAMETHASONE SOD PHOSPHATE 10 MG/ML 1 ML VIAL IV ONE; +LACTATED RINGERS 1,000 ML IV SCH; -LIDOCAINE 1% 20 ML VIAL (10MG/ML) FOR IV START INTRADERMA PRN; -MELOXICAM 7.5 MG TAB PO ONE; -METOCLOPRAMIDE 5 MG/ML 2 ML VIAL IVP PRN; -MIDAZOLAM 2 MG/2 ML VIAL IV PRN; -ONDANSETRON 4 MG/2 ML VIAL IVP ONE; -TRANEXAMIC ACID 1,000 MG in SODIUM CHLORIDE 0.9% 100 ML IVPB ONE; -fentaNYL (PF) 50 MCG/ML 2 ML AMP IVP PRN
[2020-11-21] MEDS ORDERED: LIDOCAINE 1% (10MG/ML) FOR IV START INTRADERMA ONE (09:50)
[2020-11-21 09:57] VITALS: RESP 16; TEMP 97.2
[2020-11-21] MEDS ORDERED: LIDOCAINE 1% INJ 10MG/ML (20 ML MDV) ONE (10:19)
[2020-11-21] MEDS ORDERED: PROPOFOL 10 MG/ML 20 ML VIAL IV ONE (10:19)
--- NOTE | 2020-11-21 10:49 | P.PCN ---
Date of Procedure: 11/21/20 Procedure(s) Performed: Brief history: Patient is a pleasant 65-year-old white female scheduled for an elective upper endoscopy as well as colonoscopy as a part of evaluation of intermittent dysphagia to solids/chronic heartburn of several years duration. She also has prior history of colon polyps and last colonoscopy was 5 years ago. Procedure performed: Esophagogastroduodenoscopy with biopsy Colonoscopy and snare polypectomy Preoperative diagnosis: GERD/intermittent dysphagia to solids History of colon polyps Anesthesia: MAC Procedure: After informed consent was obtained from the patient was brought into the endoscopy unit and IV sedation was administered by anesthesia under continuous monitoring. Initially upper endoscopy was done. The Olympus GF 160 video endoscope was inserted inserted into the mouth and esophagus intubated without any difficulty and was gradually advanced into the stomach and duodenum and carefully examined. The bulb and second part of the duodenum appeared normal. The scope was then withdrawn into the stomach adequately insufflated with air and upon careful examination the antrum and mild diffuse gastritis and biopsies were done from this area. The body, cardia and fundus appeared normal. The scope was then withdrawn into the esophagus. The GE junction was located at 40 cm to the incisors. It appeared regular with 2 superficial erosions consistent with LA grade B reflux esophagitis. Rest of the esophagus appeared normal. Patient tolerated the procedure well. At this time the patient continued to remain sedation. Initial digital rectal examination was normal. Olympus CF 160 video colonoscope was then inserted into the rectum and gradually advanced to the cecum without any difficulty. Careful examination was performed as the scope was gradually being withdrawn. The prep was excellent. The cecum, appeared normal. In the ascending colon there were multiple small polyps measuring about 3-5 mm in size at least 88 and withdrawal removed by snare polypectomy. Rest of ascending colon, transverse colon, descending colon, sigmoid colon and rectum appeared normal. Retroflexion was performed in the rectum and no lesions were noted. Patient tolerated the procedure well. Impression: 1. Upper endoscopy revealed mild antral gastritis and LA grade B reflux esophagitis 2. Colonoscopy revealed multiple small scattered polyps in the ascending colon measuring between 3-5 mm in size all of which were removed by snare polypectomy. Recommendations: Findings of this examination were discussed with the patient as well as IV. She was advised to follow with the biopsy results and have a repeat surveillance colonoscopy in 3 years from what the multiple small colon polyps. The possible GERD symptoms she will increase the PPI medication twice daily and follow antireflux measures.
[2020-11-21 11:38] VITALS: BP 114/65; PULSE 77
== END 2020-11-21 11:47 | disposition home or self-care (01) ==
LOC: ORWHC2ENDO 08:54
PROVIDERS: ATTEND Internal Medicine Gastroenterology
DX: Z12.11 Encounter for screening for malignant neoplasm of colon (principal); D12.2 Benign neoplasm of ascending colon; K29.50 Unspecified chronic gastritis without bleeding; K21.00 Gastro-esophageal reflux disease with esophagitis, without bleeding; Z86.010 Personal history of colon polyps; Z80.0 Family history of malignant neoplasm of digestive organs; I10 Essential (primary) hypertension; E07.9 Disorder of thyroid, unspecified; F32.9 Major depressive disorder, single episode, unspecified; Z79.899 Other long term (current) drug therapy; Z79.890 Hormone replacement therapy; Z88.2 Allergy status to sulfonamides; Z88.8 Allergy status to other drugs, medicaments and biological substances; Z90.49 Acquired absence of other specified parts of digestive tract; Z90.710 Acquired absence of both cervix and uterus; Z90.89 Acquired absence of other organs; Z98.890 Other specified postprocedural states
CPT/HCPCS: 88305; 45385; 43239; J2001; J2704

== ENCOUNTER 2021-02-14 16:55 | Emergency (ER) | payer MEDICARE ==
[2021-02-14 17:33] VITALS: RESP 18; TEMP 98.5
[2021-02-14] MEDS ORDERED: ASPIRIN 81 MG PO STA (18:48)
--- NOTE | 2021-02-14 18:53 | ED ---
General Adult HPI - General Chief complaint: Recheck/Abnormal Lab/Rx Stated complaint: Sent by PCP - Abn Labs Time Seen by Provider: 02/14/21 18:28 Source: patient, RN notes reviewed Mode of arrival: ambulatory Limitations: no limitations - History of Present Illness Initial comments: Patient is a pleasant [age]-year-old female presenting to the emergency department with concerns regarding abnormal labs. Patient states she was having some chest discomfort, last episode was 4 days ago now. Patient went to her doctor today and have blood work done. There was concern for d-dimer 0.64. Patient was advised to come here to evaluate for blood clot. Patient states she does have history of previous heart murmur. Patient states she has had no chest discomfort or symptoms in the past 4 days. Patient states when she had symptoms that was radiation up towards her neck with associated sweating and nausea. There may have been some minimal dyspnea. - Related Data Home Medications Medication Instructions Recorded Confirmed Amitriptyline HCl [Elavil] 100 mg PO PC-SUPPER 10/14/18 11/19/20 Atenolol [Tenormin] 50 mg PO PC-SUPPER 10/14/18 11/19/20 Butalb/APAP/Caff 50-325-40Mg 1 - 2 tab PO Q4H PRN 10/14/18 11/19/20 [Fioricet 50-325-40] Cholecalciferol (Vitamin D3) 2,000 unit PO DAILY 10/14/18 11/19/20 [Vitamin D3] Diclofenac Sodium Gel [Voltaren 2 gm TOPICAL QID PRN 10/14/18 11/19/20 Gel] Famotidine [Pepcid] 20 mg PO BID 10/14/18 11/19/20 Amoxicillin(Dose Unknown) 1 tab PO DIRECTED PRN 10/31/19 11/19/20 Levothyroxine Sodium [Synthroid] 88 mcg PO DAILY 10/31/19 11/19/20 QUEtiapine XR [SEROquel XR] 300 mg PO HS 10/31/19 11/19/20 Sertraline [Zoloft] 100 mg PO DAILY 10/31/19 11/19/20 Cannabidiol (Cbd) [Epidiolex] 1 dose PO DAILY PRN 11/19/20 11/19/20 Allergies Allergy/AdvReac Type Severity Reaction Status Date / Time Sulfa (Sulfonamide Allergy Severe Rash/Hives Verified 02/14/21 17:33 Antibiotics) STEROIDS AdvReac Rapid Uncoded 02/14/21 17:33 Heart Rate Review of Systems ROS Statement: Those systems with pertinent positive or pertinent negative responses have been documented in the HPI. ROS Other: All systems not noted in ROS Statement are negative. Constitutional: Denies: fever Eyes: Denies: eye pain ENT: Denies: ear pain Respiratory: Reports: dyspnea. Denies: cough Cardiovascular: Reports: chest pain Endocrine: Denies: fatigue Gastrointestinal: Denies: abdominal pain Genitourinary: Denies: dysuria Musculoskeletal: Denies: back pain Skin: Denies: rash Neurological: Denies: weakness Past Medical History Past Medical History: Fibromyalgia, GERD/Reflux, Hypertension, Osteoarthritis (OA), Thyroid Disorder Additional Past Medical History / Comment(s): Diverticulitis; migraines History of Any Multi-Drug Resistant Organisms: None Reported Past Surgical History: Cholecystectomy, Heart Catheterization, Hysterectomy, Orthopedic Surgery, Tonsillectomy Additional Past Surgical History / Comment(s): left knee arthroscopy x 2, left knee replacement, kd carpal tunnel, kd feet bunionectomy, arthroscopy rt shoulder Past Anesthesia/Blood Transfusion Reactions: No Reported Reaction Past Psychological History: Anxiety, Depression Smoking Status: Never smoker Past Alcohol Use History: None Reported Past Drug Use History: None Reported - Past Family History Father Family Medical History: Cancer Mother Family Medical History: Cancer General Exam Limitations: no limitations General appearance: alert, in no apparent distress Head exam: Present: normocephalic Eye exam: Present: normal appearance Neck exam: Present: normal inspection Respiratory exam: Present: normal lung sounds bilaterally. Absent: chest wall tenderness Cardiovascular Exam: Present: regular rate, normal rhythm Expanded Peripheral pulses: 2+: Radial (R), Radial (L), Dorsalis Pedis (R), Dorsalis Pedis (L) GI/Abdominal exam: Present: soft. Absent: tenderness Extremities exam: Present: normal inspection. Absent: pedal edema, calf tenderness Neurological exam: Present: alert Psychiatric exam: Present: normal affect, normal mood Skin exam: Present: normal color Course Vital Signs 02/14/21 17:28 Temperature 98.5 F Pulse Rate 105 H Respiratory 18 Rate Blood Pressure 146/81 O2 Sat by Pulse 98 Oximetry EKG Findings - EKG Comments: EKG Findings:: Normal sinus rhythm with a rate of 91. WV 142. QRS 76. QT 354. QTC 435. Normal axis. LVH criteria. No acute ST change. Medical Decision Making - Medical Decision Making Patient reevaluated and resting comfortably in bed, remained symptom-free. Patient updated on results. Discussion had with patient regarding further testing. Patient has negative troponin 2 today. Patient has not had symptoms in 4 days. Patient will need stress test. Patient states she does have an appointment tomorrow with a filler room attendant and requests discharge home. Patient is made aware of limitations of tests in the emergency department and advised to return immediately if symptoms return or worsen. - Lab Data Result diagrams: 02/14/21 19:12 02/14/21 19:12 Lab Results 02/14/21 02/14/21 02/14/21 Range/Units 19:12 19:12 19:12 WBC 7.5 (3.8-10.6) k/uL RBC 4.38 (3.80-5.40) m/uL Hgb 13.9 (11.4-16.0) gm/dL Hct 40.3 (34.0-46.0) % MCV 92.2 (80.0-100.0) fL MCH 31.7 (25.0-35.0) pg MCHC 34.4 (31.0-37.0) g/dL RDW 12.8 (11.5-15.5) % Plt Count 295 (150-450) k/uL MPV 7.9 Neutrophils % 54 % Lymphocytes % 31 % Monocytes % 8 % Eosinophils % 3 % Basophils % 1 % Neutrophils # 4.1 (1.3-7.7) k/uL Lymphocytes # 2.4 (1.0-4.8) k/uL Monocytes # 0.6 (0-1.0) k/uL Eosinophils # 0.2 (0-0.7) k/uL Basophils # 0.1 (0-0.2) k/uL PT 10.2 (9.0-12.0) sec INR 0.9 (<1.2) APTT 22.9 (22.0-30.0) sec Sodium 144 (137-145) mmol/L Potassium 3.7 (3.5-5.1) mmol/L Chloride 110 H (98-107) mmol/L Carbon Dioxide 26 (22-30) mmol/L Anion Gap 8 mmol/L BUN 17 (7-17) mg/dL Creatinine 0.87 (0.52-1.04) mg/dL Est GFR (CKD-EPI)AfAm 81 (>60 ml/min/1.73 sqM) Est GFR (CKD-EPI)NonAf 70 (>60 ml/min/1.73 sqM) Glucose 109 H (74-99) mg/dL Calcium 9.8 (8.4-10.2) mg/dL Magnesium 1.7 (1.6-2.3) mg/dL Total Bilirubin 0.2 (0.2-1.3) mg/dL AST 32 (14-36) U/L ALT 33 (4-34) U/L Alkaline Phosphatase 130 H (38-126) U/L Troponin I (0.000-0.034) ng/mL Total Protein 6.6 (6.3-8.2) g/dL Albumin 4.2 (3.5-5.0) g/dL /04/01 Range/Units 19:12 WBC (3.8-10.6) k/uL RBC (3.80-5.40) m/uL Hgb (11.4-16.0) gm/dL Hct (34.0-46.0) % MCV (80.0-100.0) fL MCH (25.0-35.0) pg MCHC (31.0-37.0) g/dL RDW (11.5-15.5) % Plt Count (150-450) k/uL MPV Neutrophils % % Lymphocytes % % Monocytes % % Eosinophils % % Basophils % % Neutrophils # (1.3-7.7) k/uL Lymphocytes # (1.0-4.8) k/uL Monocytes # (0-1.0) k/uL Eosinophils # (0-0.7) k/uL Basophils # (0-0.2) k/uL PT (9.0-12.0) sec INR (<1.2) APTT (22.0-30.0) sec Sodium (137-145) mmol/L Potassium (3.5-5.1) mmol/L Chloride (98-107) mmol/L Carbon Dioxide (22-30) mmol/L Anion Gap mmol/L BUN (7-17) mg/dL Creatinine (0.52-1.04) mg/dL Est GFR (CKD-EPI)AfAm (>60 ml/min/1.73 sqM) Est GFR (CKD-EPI)NonAf (>60 ml/min/1.73 sqM) Glucose (74-99) mg/dL Calcium (8.4-10.2) mg/dL Magnesium (1.6-2.3) mg/dL Total Bilirubin (0.2-1.3) mg/dL AST (14-36) U/L ALT (4-34) U/L Alkaline Phosphatase (38-126) U/L Troponin I <0.012 (0.000-0.034) ng/mL Total Protein (6.3-8.2) g/dL Albumin (3.5-5.0) g/dL - Radiology Data Radiology results: report reviewed (Computed tomography scan shows no evidence of pulmonary embolism.) Disposition Clinical Impression: Chest pain Disposition: HOME SELF-CARE Condition: Stable Instructions (If sedation given, give patient instructions): Chest Pain (ED) Additional Instructions: Please follow-up tomorrow with filler room attendant as planned. Return for any chest pain, any difficulty in breathing, sweating or nausea, worsening symptoms or any other concerns. Please also follow-up with your primary care physician in the next day or 2 for recheck. Is patient prescribed a controlled substance at d/c from ED?: No Referrals: Ashley Tolentino MD [Primary Care Provider] - 1-2 days Time of Disposition: 20:27
[2021-02-14 19:22] LABS: Basophils # (A) 0.1 k/uL (0-0.2); Basophils % (A) 1 %; Eosinophils # (A) 0.2 k/uL (0-0.7); Eosinophils % (A) 3 %; HCT 40.3 % (34.0-46.0); HGB 13.9 gm/dL (11.4-16.0); Lymphocytes # (A) 2.4 k/uL (1.0-4.8); Lymphocytes % (A) 31 %; MCH 31.7 pg (25.0-35.0); MCHC 34.4 g/dL (31.0-37.0); MCV 92.2 fL (80.0-100.0); Mean Platelet Volume 7.9; Monocytes # (A) 0.6 k/uL (0-1.0); Monocytes % (A) 8 %; Neutrophils # (A) 4.1 k/uL (1.3-7.7); Neutrophils % (A) 54 %; Platelet Count 295 k/uL (150-450); RBC 4.38 m/uL (3.80-5.40); RDW 12.8 % (11.5-15.5); WBC 7.5 k/uL (3.8-10.6)
[2021-02-14 19:31] LABS: Albumin 4.2 g/dL (3.5-5.0); Calcium 9.8 mg/dL (8.4-10.2); Magnesium 1.7 mg/dL (1.6-2.3); Potassium 3.7 mmol/L (3.5-5.1); Total Bilirubin 0.2 mg/dL (0.2-1.3); Total Protein 6.6 g/dL (6.3-8.2)
[2021-02-14 19:47] LABS: INR 0.9 (<1.2); Partial Thromboplastin Time 22.9 sec (22.0-30.0); Prothrombin Time 10.2 sec (9.0-12.0)
--- NOTE | 2021-02-14 20:09 | CT ---
EXAMINATION TYPE: CT angio chest DATE OF EXAM: 02/14/2021 COMPARISON: None HISTORY: Chest pain, abnormal labs. Pt reports having a heart murmur. CT DLP: 290.5 mGycm Automated exposure control for dose reduction was used. CONTRAST: Performed with IV Contrast, patient injected with 100 mL of Isovue 370. Images obtained from the thoracic inlet to the diaphragm with IV contrast. There are 3-D post process ed images. There is some mild reticular infiltrate at the lung apices. There is no evidence of pulmonary mass. T here is no pleural effusion. There is no pericardial effusion. Heart size is fairly normal. There is normal contrast opacification of the pulmonary arteries. There are no filling defects. Thora cic aorta is intact. There is no aneurysm or dissection. Ascending aorta measures 3.7 cm. There are n o hilar masses. There is no mediastinal adenopathy. Thoracic vertebra have normal alignment. There is no compression fracture. Posterior elements are int act. There is no paraspinal mass. IMPRESSION: No evidence of pulmonary embolism. Minimal scarring at the lung apices. No suspicious pulmonary mass.
[2021-02-14 20:43] VITALS: BP 131/86; PULSE 75
== END 2021-02-14 20:49 | disposition home or self-care (01) ==
LOC: EC 16:55
DX: R07.9 Chest pain, unspecified (principal); I10 Essential (primary) hypertension; K21.9 Gastro-esophageal reflux disease without esophagitis; M19.90 Unspecified osteoarthritis, unspecified site; F32.9 Major depressive disorder, single episode, unspecified; F41.9 Anxiety disorder, unspecified; M79.7 Fibromyalgia; Z96.652 Presence of left artificial knee joint; Z90.49 Acquired absence of other specified parts of digestive tract; Z90.710 Acquired absence of both cervix and uterus; Z95.5 Presence of coronary angioplasty implant and graft; Z90.09 Acquired absence of other part of head and neck
CPT/HCPCS: 36415; 93005; 80053; 83735; 84484; 85025; 85610; 85730; 71275; 99285; Q9967

== ENCOUNTER → 2021-02-14 | Outpatient (CLI) | payer MEDICARE ==
[2021-02-14 09:49] LABS: Basophils # (A) 0.1 k/uL (0-0.2); Basophils % (A) 1 %; Eosinophils # (A) 0.1 k/uL (0-0.7); Eosinophils % (A) 2 %; HCT 40.5 % (34.0-46.0); HGB 13.7 gm/dL (11.4-16.0); Lymphocytes # (A) 1.5 k/uL (1.0-4.8); Lymphocytes % (A) 20 %; MCH 31.5 pg (25.0-35.0); MCHC 33.7 g/dL (31.0-37.0); MCV 93.3 fL (80.0-100.0); Mean Platelet Volume 7.9; Monocytes # (A) 0.4 k/uL (0-1.0); Monocytes % (A) 5 %; Neutrophils % (A) 71 %; Platelet Count 268 k/uL (150-450); RBC 4.34 m/uL (3.80-5.40); RDW 12.7 % (11.5-15.5); WBC 7.1 k/uL (3.8-10.6)
[2021-02-14 09:58] LABS: ALT 35 U/L (4-34); AST 33 U/L (14-36); African American GFR (CKD) >90 (>60 ml/min/1.73 sqM); Albumin 4.2 g/dL (3.5-5.0); Albumin/Globulin Ratio 1.7; Alkaline Phosphatase 140 U/L (38-126); Anion Gap 5 mmol/L; Blood Urea Nitrogen 15 mg/dL (7-17); Calcium 9.7 mg/dL (8.4-10.2); Carbon Dioxide 27 mmol/L (22-30); Chloride 106 mmol/L (98-107); Globulin 2.5 g/dL; Glucose 98 mg/dL (74-99); LDH 628 U/L (313-618); Non-African American GFR(CKD) >90 (>60 ml/min/1.73 sqM); Potassium 3.9 mmol/L (3.5-5.1); Sodium 138 mmol/L (137-145); Total Bilirubin 0.4 mg/dL (0.2-1.3); Total Protein 6.7 g/dL (6.3-8.2)
[2021-02-14 10:02] LABS: D-Dimer 0.64 mg/L FEU (<0.60)
[2021-02-14 10:28] LABS: Creatine Kinase MB 0.9 ng/mL (0.0-2.4); Troponin I <0.012 ng/mL (0.000-0.034)
== END | disposition home or self-care (01) ==
LOC: LABWHC1 09:14
PROVIDERS: ATTEND Nurse Practitioner Family
DX: R07.9 Chest pain, unspecified (principal)
CPT/HCPCS: 36415; 80053; 82553; 83615; 83880; 84484; 85025; 85379; 85610

== ENCOUNTER → 2021-03-15 | Outpatient (CLI) | payer MEDICARE ==
[2021-03-15 10:05] LABS: HCT 39.2 % (34.0-46.0); HGB 13.4 gm/dL (11.4-16.0); MCH 32.6 pg (25.0-35.0); MCHC 34.2 g/dL (31.0-37.0); MCV 95.3 fL (80.0-100.0); Mean Platelet Volume 8.4; Platelet Count 239 k/uL (150-450); RBC 4.11 m/uL (3.80-5.40); RDW 13.3 % (11.5-15.5); WBC 6.9 k/uL (3.8-10.6)
[2021-03-15 10:15] LABS: African American GFR (CKD) >90 (>60 ml/min/1.73 sqM); Anion Gap 4 mmol/L; Blood Urea Nitrogen 10 mg/dL (7-17); Carbon Dioxide 28 mmol/L (22-30); Chloride 107 mmol/L (98-107); Non-African American GFR(CKD) >90 (>60 ml/min/1.73 sqM); Potassium 4.5 mmol/L (3.5-5.1); Sodium 139 mmol/L (137-145)
== END | disposition home or self-care (01) ==
LOC: LABPAT 08:58
PROVIDERS: ATTEND Internal Medicine Cardiovascular Disease
DX: Z01.812 Encounter for preprocedural laboratory examination (principal); R07.9 Chest pain, unspecified
CPT/HCPCS: 36415; 80051; 82565; 84520; 85027

== ENCOUNTER → 2022-06-30 | Outpatient (CLI) | payer MEDICARE ==
--- NOTE | 2022-06-30 18:36 | US ---
EXAMINATION TYPE: US thyroid st tissue head/neck DATE OF EXAM: 06/30/2022 COMPARISON: 10/25/2020 CLINICAL HISTORY: 66-year-old female E04.1 THYROID NODULE. F/u exam, on thyroid meds TECHNIQUE: Multiple sonographic images of the thyroid gland are obtained. FINDINGS: GLAND SIZE: Right Lobe: 3.7 x 0.6 x 1.8 cm Overall Parenchyma: heterogenous Left Lobe: 2.9 x 0.9 x 1.1 cm Overall Parenchyma: heterogeneous Isthmus Thickness: 0.2 cm NODULES RIGHT: # of nodules measured on right: could not appreciate 5mm area noted on previous exam, some 3 mm areas were seen but not fully characterized presently due to being under 5mm in size. LEFT: # of nodules measured on left: 1 - measured previously 1. 0.3 X 0.4 x 0.2 cm, lower , too small to characterise, hypoechoic nodule, which is wider than ta ll, with ill-defined margins, without echogenic foci. Prior size: 0.4 x 0.3 x 0.4 cm ISTHMUS: # of nodules measured in the isthmus: 0 Bilateral neck scanned, no evidence of lymphadenopathy. IMPRESSION: Tiny nodules. On the right, these measure up to 3 mm. On the left, a 4 mm [id number] remains unchanged .
== END | disposition home or self-care (01) ==
LOC: RADUSWWP 14:45
PROVIDERS: ATTEND Otolaryngology
DX: E04.1 Nontoxic single thyroid nodule (principal)
CPT/HCPCS: 76536

== ENCOUNTER → 2022-07-18 | Outpatient (CLI) | payer MEDICARE ==
--- NOTE | 2022-07-18 16:33 | BD ---
EXAMINATION TYPE: Axial Bone Density DATE OF EXAM: 07/18/2022 COMPARISON: 07.17.2020 STUDY UNAVAILABLE...NO TRENDING TODAY CLINICAL HISTORY: 67 years year old Female. ICD-10 CODE: Z78.[address] Height: 60 Weight: 144 FRAX RISK QUESTIONS: Family History (Parent hip fracture): YES, NO FX Secondary Osteoporosis: YES 3. Menopause before 45: YES 5. Chronic liver disease: FATTY RISK FACTORS HISTORY OF: Family History of Osteoporosis: YES Postmenopausal woman: TOTAL HYST AT 28 YRS OLD Lost more than 2 inches in height since high school: YES Frequent falls: USING A CANE, UNSTEADY Poor Health: FAIR Hyperparathyroidism: NO Adrenal Insufficiency: NO MEDICATIONS: Thyroid Medications: SYNTHROID FOR ABOUT 18 YRS Additional Medications: ATENOLOL, AMITRIPTYLINE, ZOLOFT.CODINE.SEROQUEL, REFLUX MEDS, VIT D BUTALB/CA FF/ACETAMINOPHEN, Additional History: CARPAL TUNNEL SURG, BILAT, HYPERTENSION, ANXIETY, REFLUX, CHRONIC PAIN, OSTEOARTH RITIS AND FIBROMYALGIA, EXAM MEASUREMENTS: Bone mineral densitometry was performed using the [employer] System. Bone mineral density as measured about the Lumbar spine is: ----- L1-L4(G/cm2): 0.905 T Score Values are as follows: ----- L1: -3.1 ----- L2: -3.0 ----- L3: -2.3 ----- L4: -0.9 ----- L1-L4: -2.3 Bone mineral density NOTHING TO TREND WITH Bone mineral density about the R hip (g/cm2): 0.836 Bone mineral density about the L hip (g/cm2): 0.748 T Score values are as follows: -----R Neck: -1.5 -----L Neck: -0.7 -----R Total: -1.4 -----L Total: -2.1 Bone mineral density NOTHING TO TREND WITH FRAX%s: The graph provided illustrates a 9.2% chance for a major osteoporotic fx and a 1.1% chance fo r the hips probability for fx in 10 years time. IMPRESSION: Osteopenia (T Score between -2.5 and -1). There is slightly increased risk of fracture and the patient may be considered for treatment. Re-Screen 2-5 years. NOTE: T-SCORE=SD OF THE YOUNG ADULT MEAN.
== END | disposition home or self-care (01) ==
LOC: RADMAMWWP 07:45
PROVIDERS: ATTEND Family Medicine
DX: Z12.31 Encounter for screening mammogram for malignant neoplasm of breast (principal); M81.0 Age-related osteoporosis without current pathological fracture; Z78.0 Asymptomatic menopausal state
CPT/HCPCS: 77063; 77067; 77080

== ENCOUNTER → 2023-01-08 | Outpatient (CLI) | payer MEDICARE ==
[2023-01-08 09:17] VITALS: BP 131/90; PULSE 96; RESP 18; TEMP 98.2
--- NOTE | 2023-01-08 14:43 | P.PAINPG ---
PQRS Measure Charge Sheet Comment: HISTORY OF PRESENT ILLNESS: 67 yr old female as a referral from [facility] presents today w severe and chronic neck pain secondary to spinal stenosis, DDD, facet arthropathy without myelopathy for evaluation. Pt states pain level is provoked at 10 /10 in intensity, constant, localized in the lower cervical spine, achy in character w shooting pain up the cervical spine. Pain is provoked by over activity w PT in the past. Pain is alleviated by medications (Fioricet, Flexeril) from her PCP, injections in the past, alternating heat & ice, chiropractic treatments in the past, PT guided home exercise & stretching regimen daily, use of a cane for ambulatory assistance, massage therapy which provided little to no relief, repositioning and rest. PMH: Fibromyalgia, HTN, OA, Hypothyroidism, MDD/ Anxiety PSH: Cholecystectomy, Hysterectomy, L Knee Arthroscopy x2, L Knee Replacement, Tonsillectomy, BL CTR, BL Feet Bunionectomy, R Shoulder Arthroscopy, CESIs, Cervical RFAs SH: Negative x3 FH: Fa- CA. Mo- CA. All: See list Meds: See list REVIEW OF ORGAN SYSTEMS: CONSTITUTIONAL: No fevers or chills. No recent weight loss. NEUROLOGICAL: + numbness and tingling along the distal extremities. No seizure disorders or headaches. MUSCULOSKELETAL: + pain PSYCHIATRIC: Denies current depression or suicidal thoughts. Physical Examinations : Constitutional : Cooperative , not in acute distress . Neurologic : Cranial nerve II to XII intact. No focal neurological deficits. Psychiatric : alert & oriented x 3. Matching mood & appropriate affect. Judgment & insight intact. Musculoskeletal : Cervical Spine Motor strength in the deltoid and biceps: Normal right side. Normal Left side Motor strength biceps and the wrist extensors: Normal right side . Normal left side Motor strength in the triceps muscle: Normal right side. Normal left side Deep tendon reflexes: Normal at the biceps. Normal at Brachioradialis. Normal at triceps Vertebral body tenderness to deep palpation over C6 Cervical facet loading test: positive bilaterally Spurling test: positive bilaterally Neck distraction test: positive bilaterally Chemo sign: positive bilaterally Lumbar spine Motor strength lower extremities ,thigh and legs 5/5 Right side , 5/5 Left side Deep tendon reflexes : Normal Knee Jerk. Normal Ankle Jerk Vertebral body tenderness over Lumbar facet Loading Test: positive Right / positive Left Range of motion of the lumbar spine Flexion 30 degrees, extension 10 degrees Straight Leg Raise test: Left/ Right positive at degree Hiren test: positive right / positive left. Severe tenderness over the Sacroiliac joint on the Right / Left sides Gaenslen test: positive bilaterally Seated flexion test: positive bilaterally. Sacral spine : Severe tenderness over the Sacroiliac joint: right side / left side Range of motion: Flexion of the lumbar spine <60 degrees Range of motion: Extension of the lumbar spine <20 degrees Gaenslen's Test positive Tj's Test positive Hiren test: positive right side / left side Thigh Thrust Test Sacral Thrust Test Imaging: MRI without contrast of the cervical spine from 12/15/22 reviewed Assessment/ Plan : Cervical stenosis, cervical DDD Recommendation of ALOK C6-C7. May need a series of injections for optimal pain relief. Risks, benefits of procedure discussed and patient verbalized understanding. Denies to aspirin or anti- coagulant use or medical history of diabetes. Protocol for discontinuation/ continuation of medications elise procedure discussed. All questions answered. I have spent greater than 30 minutes on patient care today. Dr Rich was available by phone for the evaluation of this patient. The time was used to review the medical records including relevant urine studies and Prescription history (MAPs), review of the available imaging, evaluation and examination of the patient, coordination of care with the medical staff and if applicable referring physicians, as well as creation of the medical record PQRS Narrative: Smoking Status Never smoker Home Medications: Ambulatory Orders Amitriptyline HCl [Elavil] 100 mg PO PC-SUPPER 10/14/18 Butalb/APAP/Caff 50-325-40Mg [Fioricet 50-325-40] 1 - 2 tab PO Q4H PRN 10/14/18 Cholecalciferol (Vitamin D3) [Vitamin D3] 2,000 unit PO DAILY 10/14/18 atenoloL [Tenormin] 50 mg PO PC-SUPPER 10/14/18 Amoxicillin(Dose Unknown) 1 tab PO DIRECTED PRN 10/31/19 Levothyroxine Sodium [Synthroid] 88 mcg PO DAILY 10/31/19 QUEtiapine XR [SEROquel XR] 300 mg PO HS 10/31/19 Sertraline [Zoloft] 100 mg PO DAILY 10/31/19 Cyclobenzaprine [Flexeril] 10 mg PO HS 01/08/23 Omeprazole 40 mg PO DAILY 01/08/23 Controlled Substance Measures - Controlled Substance Measures Is patient prescribed a controlled substance at discharge?: No
== END ==
LOC: PNWHC3 08:29
PROVIDERS: ATTEND Specialist
DX: M50.323 Other cervical disc degeneration at C6-C7 level (principal); M47.22 Other spondylosis with radiculopathy, cervical region; M48.02 Spinal stenosis, cervical region; I10 Essential (primary) hypertension; M19.90 Unspecified osteoarthritis, unspecified site; E03.9 Hypothyroidism, unspecified; F41.9 Anxiety disorder, unspecified; G89.29 Other chronic pain; Z88.2 Allergy status to sulfonamides; Z88.8 Allergy status to other drugs, medicaments and biological substances
CPT/HCPCS: 99211

== ENCOUNTER 2023-02-05 10:11 | Day surgery (SDC) | payer MEDICARE ==
[2023-02-05] MEDS ORDERED: LACTATED RINGERS 1,000 ML IV SCH (10:34)
[2023-02-05] MEDS ORDERED: LIDOCAINE 1% (10MG/ML) FOR IV START INTRADERMA PRN (10:34)
[2023-02-05 10:50] VITALS: RESP 16; TEMP 98.2
[2023-02-05] MEDS ORDERED: IOPAMIDOL M200 10 ML VIAL ONE (11:04)
[2023-02-05] MEDS ORDERED: fentaNYL (PF) 50 MCG/ML 2 ML AMP ONE (11:04)
[2023-02-05] MEDS ORDERED: MIDAZOLAM 2 MG/2 ML VIAL ONE (11:04)
[2023-02-05] MEDS ORDERED: DEXAMETHASONE SOD PHOSPHATE 10 MG/ML 1 ML VIAL ONE (11:04)
--- NOTE | 2023-02-05 11:15 | P.PCN ---
Date of Procedure: 02/05/23 Procedure(s) Performed: . PROCEDURE 1. Cervical epidural steroid injection under fluoroscopic guidance, C6-7 (fluoroscopy images available in the radiology department ) 2. Cervical epidurogram. PREOPERATIVE DIAGNOSIS: 1- Cervical Degenerative Disc Diseases 2-cervical spondylosis with cervical Facet arthropathy without myelopathy.3-cervical spinal stenosis POSTOPERATIVE DIAGNOSIS: : 1- Cervical Degenerative Disc Diseases , 2-cervical spondylosis with cervical Facet arthropathy without myelopathy. 3-cervical spinal stenosis ANESTHESIA: moderate sedation, with Versed 1 mg and Fentanyl 50 mcg. Sedation start time :1109 Sedation end time :1113 EBL 0 PROCEDURE INDICATION: The patient with neck pain and radiculitis unresponsive to conservative treatment consents for procedure. PROCEDURE DESCRIPTION / TECHNIQUE: The patient was seen and identified in the preoperative area. Risks, benefits, complications, including but not limited to infections ,bleeding , allergic reactions to the medications ,and not complete pain releife, and alternatives were discussed with the patient, the patient agreed to proceed with the procedure and signed the consent. Patient was taken to the OR and time out was completed. The patient was placed in the prone position on the procedure table. A pillow was placed under the patients chest to increase the cervical interlaminar space. The cervical area was prepped and draped in the usual sterile fashion. Vital signs were closely monitored during the procedure. Conscious sedation was used during the procedure to decrease patients anxiety. Using anterior-posterior fluoroscopy, the C6-7 interlaminar space was identified and the skin over this site was marked and then infiltrated with 1% lidocaine subcutaneously. Subsequently, a 20-gauge 3-1/2-inch Tuohy epidural needle was inserted and advanced toward the epidural space by means of the ``hanging-drop technique and guided by AP and lateral fluoroscopy. The correct needle position in the epidural space was verified with the injection of 2 mL of the water soluble contrast dye Isovue-200 and observing an excellent epidurogram with the epidural spread of the dye, after negative aspiration for blood and CSF and in the absence of paresthesias. then, mixture containing 20 mg Dexamethasone and 2 ml of preservative-free normal saline injected and a washout of epidurogram was seen. Needle was withdrawn intact, skin was cleansed, and bandages were applied. Complications= none. Disposition= patient was placed in supine position and transferred to the recovery room area in stable condition and there was no evidence of upper or lower extremity motor or sensory deficit after the procedure patient was discharged from recovery room after discharge criteria met and home discharge instructions was given by the staff and patient will follow with the pain clinic in 2-4 weeks
[2023-02-05] MEDS ORDERED: IV FLUID CONTINUATION 1,000 ML IV ONE (11:22)
[2023-02-05 11:39] VITALS: BP 134/84; PULSE 66
--- NOTE | 2023-02-05 11:42 | FL ---
EXAMINATION TYPE: FL guided pain mgmt statistic DATE OF EXAM: 02/05/2023 HISTORY: Fluoroscopy time Total dose area product (DAP) in mGy*cm? (or similar): .84819. IMPRESSION: 1. Fluoroscopy time.
== END 2023-02-05 11:52 | disposition home or self-care (01) ==
LOC: ORPAIN 10:11
PROVIDERS: ATTEND Specialist
DX: M50.123 Cervical disc disorder at C6-C7 level with radiculopathy (principal); M47.22 Other spondylosis with radiculopathy, cervical region; M48.02 Spinal stenosis, cervical region; Z88.2 Allergy status to sulfonamides
CPT/HCPCS: 62321; J2250; J1100; J3010; Q9966

== ENCOUNTER → 2023-04-08 | Outpatient (CLI) | payer MEDICARE ==
[2023-04-08 08:52] LABS: Prothrombin Time 10.5 sec (9.0-12.0)
[2023-04-08 15:59] LABS: Basophils # (A) 0.05 X 10*3/uL (0.00-0.10); Eosinophils # (A) 0.11 X 10*3/uL (0.04-0.35); Eosinophils % (A) 2.1 %; HCT 40.2 % (37.2-46.3); Lymphocytes # (A) 1.39 X 10*3/uL (0.90-5.00); Lymphocytes % (A) 26.9 %; MCH 31.9 pg (27.0-32.0); MCHC 32.3 d/dL (32.0-37.0); MCV 98.8 FL (80.0-97.0); Mean Platelet Volume 10.3 FL (9.5-12.2); Monocytes # (A) 0.46 X 10*3/uL (0.20-1.00); Monocytes % (A) 8.9 %; NRBC Per 100 WBC 0 X 10*3/uL (0.00-0.01); Neutrophils # (A) 3.13 X 10*3/uL (1.80-7.70); Neutrophils % (A) 60.5 %; Platelet Count 244 X 10*3/uL (140-440); RBC 4.07 X 10*6/uL (4.10-5.20); RDW 13.2 % (11.5-14.5); WBC 5.17 X 10*3/uL (4.50-10.00)
[2023-04-08 16:28] LABS: BUN/Creat Ratio 19.43 Ratio (12.00-20.00); Blood Urea Nitrogen 13.6 mg/dL (9.0-27.0); Calcium 9.5 mg/dL (8.7-10.3); Carbon Dioxide 26.1 mmol/L (21.6-31.8); Chloride 103 mmol/L (96-109); Glucose 96 mg/dL (70-110); Potassium 4.8 mmol/L (3.5-5.5); Sodium 139 mmol/L (135-145)
== END | disposition home or self-care (01) ==
LOC: LABPAT 07:43
PROVIDERS: ATTEND Orthopaedic Surgery
DX: Z01.812 Encounter for preprocedural laboratory examination (principal); Z22.322 Carrier or suspected carrier of Methicillin resistant Staphylococcus aureus; M47.812 Spondylosis without myelopathy or radiculopathy, cervical region; M48.02 Spinal stenosis, cervical region; I51.7 Cardiomegaly; R94.31 Abnormal electrocardiogram [ECG] [EKG]
CPT/HCPCS: 80048; 85025; 85610; 87070; 93005

== ENCOUNTER 2023-05-05 11:06 | Observation (INO) | payer MEDICARE ==
--- NOTE | 2023-05-05 07:04 | P.HPOR ---
History of Present Illness H&P Date: 04/22/23 .D:Date: 04/22/23 : 04:41pm .T:Title: *[facility]... COPY... Date of :55 R14 Allergies: Age: 67 year Height: 5'1" Weight: 140 lbs BP:122/69 BMI: 26.45 kg/m2 Occupation: Retired VAS: 6 CHIEF COMPLAINT: Neck pain DOI: Chronic DOS: n/a Duration of current treatment regiment:1 year HISTORY : Xrays No new imaging Trauma or injury No Work-Related No Pain description Constant, aching, increasing Location Posterior Patient notes that their pain radiates to left upper extremity Activity Modification No Hand Dominance Right TREATMENTS COMPLETED: 6 weeks of PT completed? Month and Year of last PT date? Yes How many sessions? 12 Did it help? No Physician directed home exercise completed? Yes, Patient has trialed the physician directed home exercise program without relief of their symptoms. Medications Yes List: Fioricet, Xanax Alternative interventions Chiropractic: yes Massage therapy: yes R.I.C.E: yes Brace: No Injections Yes, How many? 1 Did they help? No RFA: No SUBJECTIVE: Ms. Zamudio returns to the office today for a pre-operative appointment for her C5-7 ACDF.Patient reports no changes since her last appointment. She continues to experience a constant aching cervical pain that radiates down into the left upper extremity, associated with numbness and tingling. The patient reports experiencing issues with hand dexterity. She states that she feels her left arm symptoms have been worsening over the last 2 months. Patient states she is still experiencing headaches. Patient also reports that she has a history of fibromyalgia. The patient has trialed conservative measures in the form of physical therapy, epidural steroid injections, and medication management all with no significant or sustained relief. Patient is currently taking Fioricet and Xanax. Otherwise the patient denies any f/c/sob/cp, no bladder or bowel retention/incontinence, no perineal numbness/tingling, and ambulates with a cane today. HPI: Ms. Zamudio returns to the office on 03/11/23 for a re-check on her cervical marita n.She continues to experience a constant aching cervical pain that radiates down into the left upper extremity, associated with numbness and tingling. The patient reports experiencing issues with hand dexterity. She states that she feels her left arm symptoms have been worsening over the last 1 month. Patient states that she has had an increase in headache and is continuing with Fioricet. The patient states that her symptoms have become debilitating and are starting to significantly affect er overall quality of life.Patient also reports that she has a history of fibromyalgia. The patient has trialed conservative measures in the form of physical therapy, epidural steroid injections, and medication management all with no significant or sustained relief. The patient feels that she has exhausted all conservative measures at this time and would like to proceed to discuss possible surgical options. Otherwise the patient denies any f/c/sob/cp, no bladder or bowel retention/incontinence, no perineal numbness/tingling, and ambulates with a cane today. Ms. Zamudio returns to the office on 02/18/2023 regarding a recheck of her neck pain. Since the last office visit patient had received an ALOK injection on 02/05/2023 by PM&R. Patient reports that she did not have any relief. She continues to report a dull constant aching cervical pain that radiates into the left upper extremity, associated with numbness and tingling; constant in the left upper extremity and intermittent in the right upper extremity. Patient states that she has had an increase in headache and is continuing with Fioricet. Patient also reports that she does have a history of fibromyalgia. Patient feels that she has exhausted all conservative measures at this time and would like to proceed to discuss possible surgical options. Otherwise the patient denies any f/c/sob/cp, no bladder or bowel retention/incontinence, no perineal numbness/tingling, and ambulates with a cane. Ms. Zamudio was last seen on 12/22/22 regarding a recheck of her neck pain and MRI results. Patient continues to report a dull constant aching cervical pain that radiates into the left upper extremity, associated with numbness and tingling; constant in the LUE and intermittent in the RUE. Her symptoms are exacerbated with increased activity. For her symptoms, patient continues with Cyclobenzaprine and Tylenol with Codeine. MRI results reviewed and discussed. Patient would like to proceed with consult with PM&R. Otherwise the patient denies any f/c/sob/cp, no bladder or bowel retention/incontinence, no perineal numbness/tingling, and ambulates with a cane. Ms. Zamudio was last seen on 11/19/22 regarding an evaluation of their neck pain. Patient reports a constant dull aching cervical pain ongoing for multiple years and has progressed over the past year with no known injury or trauma to indicate an exact onset of their symptoms. In addition to their cervical pain, they do report that it radiates into the left upper extremity, associated with numbness and tingling. Overall the patient has seen a progressive increase in symptoms since their onset. Ms. Zamudio symptoms are exacerbated with increased activity, any bending or lifting, due to this they notes that it is increasingly difficult for Ms. Zamudio to complete many of their daily tasks. Patient is having moderate sleep disturbances as well due to their ongoing pain and associated symptoms. Patient does state a medical history of osteoporosis and fibromyalgia. Regarding treatments, the patient has previously trialed the above listed modalities. She states she has received pain management therapies from Dr. Martinez in the past. Patient denies trialing any other modalities at this time. For their symptoms, the patient has been taking Fioricet and Flexeril. Otherwise the patient denies any f/c/sob/cp, no bladder or bowel retention/incontinence, no perineal numbness/tingling, and ambulates independently. The patients' past social, medical, family, surgical history, as well as review of systems, have been reviewed. Please refer to the Neurosurgery History and Physical form that has been scanned in to our electronic medical record system. 14 points review of systems completed and as stated in HPI, all other systems reviewed are negative. Social History:Reviewed, see appropriate section of the chart for details. P3 Family History:Reviewed, see appropriate section of the chart for details. P2 Past Medical History:Reviewed, see appropriate section of the chart for details. [id number] Medications: Rx: AMITRIPTYLINE HCL 100MG ORAL Tablet, Ref: 0 Rx: Synthroid Ref: 0 Rx: Tenormin Ref: 0 Rx: amoxicillin 500 mg tablet Ref: 0 Rx: panhhvqoua-dvgnzni-bglonqyb 50 mg-325 mg-40 mg capsule Ref: 0 Rx: omeprazole 40 mg capsule,delayed release Ref: 0 Rx: QUEtiapine ER 150 mg tablet,extended release 24 hr Ref: 0 Rx: sertraline 100 mg tablet Ref: 0 Rx: Vitamin D 4000 IU , Ref: 0 P1 PHYSICAL EXAMINATION: General:Awake, alert, appropriate for age, in no acute distress. HEENT:No unusual neck masses around region of lateral neck triangle, thyroid, supraclavicular groove Heart: Regular rate and rhythm, normal S1, S2 and no murmur/gallop. Lungs:Clear to auscultation bilaterally with no use of accessory muscles. Extremities:Skin warm and dry without acute lesions, coloration, temperature, skin intact, no tenderness or erythema Integument: Hairy patches: ABSENT Dorsal skin dimples: ABSENT Cafe au lait spots: ABSENT Surgical incisions: n/a Palpation: Please see Pain drawing on Intake sheet for further detail. Midline spinal tenderness:No E6 Cervical Tenderness: No E6 Paralumbar tenderness:No E6 Parathoracic tenderness: No E6 Buttocks tenderness:No E6 Sacroiliac Tenderness:No POSTURAL and MUSCULO-SKELETAL EVALUATION: Coronal Balance:NEUTRAL Recumbent testing:Patient is able to lay flat on back Sagittal Balance:NEUTRAL Shoulder Profile:LEVEL Pelvic Girdle:LEVEL Neck ROM:UNRESTRICTED Lumbar ROM:RESTRICTED Shoulder ROM:Symmetrical Hip ROM:Symmetrical Knee ROM:Symmetrical Hands:Normal appearance, symmetrical Feet:Normal appearance, Symmetrical VASCULAR STATUS : LEFTRIGHT Wrist Pulses INTACT INTACT Pedal Pulses (Dors. pedis & post.tibialis) INTACT INTACT Color NORMAL NORMAL Edema Absent Absent NEUROLOGIC EXAMINATION: Mental Status:Awake and alert, fully oriented, with normal attention, concentration and memory, and fluent, appropriate speech. Cranial Nerves: I: Olfactory not tested. II: Visual acuity normal, no visual field deficit noted with confrontation. III,IV: Normal pupillary reflexes & intact extraocular movements without nystagmus. V,: Intact symmetrical facial sensation. VII: Intact symmetrical facial motor movement VIII: Hearing intact. IX,X: Intact gag, swallow, & normal voice. XI: Sternocleidomastoid, trapezius function intact. XII: Tongue midline with normal movements. L'hermitte's Sign: Negative / absent Spurling'Sign: Absent bilaterally. Cubital percussion test: Absent bilaterally. Huber-Tinel sign - Carpal region: Absent bilaterally. Straight Leg Raising: Absent bilaterally. Crossed straight leg raise: negative O8 MOTOR EXAM (0-5/5, N/T Muscle appearance: Symmetrical, without signs of atrophy or dystrophy UPPER EXTREMITY RIGHT LEFT Shoulder Abduction 5/5 5/5 Biceps 4+/5 5/5 Triceps 4+/5 4+/5 Wrist Extension 4+/5 4+/5 Hand Intrinsic 5/5 5/5 [employer] 4+/5 5/5 Hand and finger dexterity intact bilaterally?yes Disdiadochokinesis examination negative bilaterally? yes LOWER EXTREMITY RIGHT LEFT Hip Flexion 5/5 5/5 Knee Extension 5/5 5/5 Knee Flexion 5/5 5/5 Dorsiflexion 5/5 5/5 Plantarflexion 5/5 5/5 EHL 5/5 5/5 FHL 5/5 5/5 Toe heel walk / heel-toe walk intact while maintaining satisfactory balance? No Squatting/straightening w/o assistance to a min of 60 degree knee flexion? No Single leg stance: intact Trendelenburg sign negative bilaterally REFLEXES(0-4/2, NT)Upper ExtremityLower Extremity Right 3 2 Left 2 2 Pathological Reflexes RIGHT LEFT Huber's PRESENT Present Clonus Absent Absent Babinski Absent Absent Sensory system (0-4, N/T) Test type RU LATOYA RL LL Joint-Position 2 2 2 2 Vibration 2 2 2 2 Pain & LT sense 2 2 2 2 Dermatomal Deficit: C4-5 None None None Gait and Functional Evaluation: Ambulatory aids:Cane Romberg's test: Intact bilaterally Steady Gait RADIOGRAPHIC STUDIES: XRay Cervical multiview (Lateral, Flexion, Extension, AP, Oblique) 6 views taken at [facility] on 11/19/22: Reviewed with the patient today. Moderate multilevel spondylitic and degenerative changes with flattening of the normal lordosis. Multilevel diminished disc height. Vertebral body heights are preserved. C4-C7 bilateral foraminal stenosis. No subluxation between flexion and extension films. No acute osseous abnormalities. MRI scancompleted at [facility] from12/15/22 of [facility]: Reviewed with the patient today. IMPRESSION: 1. C5-C6 and C6-C7 mild to moderate spinal canal stenosis without evidence of cord signal change. 2. Degeneration changes throughout the spine worse at C5-6 and C6-C7 worse at C6-C7 and on the left with or neural foraminal spinal canal stenosis. IMPRESSION: It was my pleasure to have seen and examined Lucía. I reviewed the patient's clinical syndrome, physical findings, and imaging studies during the appointment today. It is my impression that the patient has a diagnosis of. 1. C3-7 spondylosis 2.C5-7 stenosis, moderate to severe 3. Left upper extremity radiculopathy 4. Neck pain I outlined the natural course history without intervention and various interventional options. PLAN: Based on my findings I suggest the following course of action: -I discussed treatment options with the patient, including operative and non- operative options, and they have elected to proceed with the following surgical procedure: C5-7 anterior cervical decompression and fusion The indications, risks, benefits, and alternatives to surgery were discussed with the patient at length. Specifically (but not limited to) the risks of infection, stiffness, recurrence of symptoms, need for revision surgery, local numbness, neurovascular injury, and blood clots were discussed. The patient's questions were answered. - Ambulate daily - Take medications as directed - Ice and rest for pain and swelling control. Spine Surgery Risk Review Ms. Zamudio is presenting for evaluation of neck pain. It was my pleasure to have seen and examined Ms. Zamudio. In our visit today we have had a chance to go over subjective complaints, physical examination findings and treatments including the natural course history without intervention and various interventional options. The patients imaging demonstrates: XRay Cervical multiview (Lateral, Flexion, Extension, AP, Oblique) 6 views taken at [facility] on 11/19/22: Reviewed with the patient today. Moderate multilevel spondylitic and degenerative changes with flattening of the normal lordosis. Multilevel diminished disc height. Vertebral body heights are preserved. C4-C7 bilateral foraminal stenosis. No subluxation between flexion and extension films. No acute osseous abnormalities. MRI scancompleted at [facility] from12/15/22 of [facility]: Reviewed with the patient today. IMPRESSION: 1. C5-C6 and C6-C7 mild to moderate spinal canal stenosis without evidence of cord signal change. 2. Degeneration changes throughout the spine worse at C5-6 and C6-C7 worse at C6-C7 and on the left with or neural foraminal spinal canal stenosis. On physical exam, Ms. Zamudio demonstrates: a constant aching cervical pain that radiates down into the left upper extremity, associated with numbness and tingling. The patient reports experiencing issues with hand dexterity. She states that she feels her left arm symptoms have been worsening over the last 1 month. The patient states that her symptoms have become debilitating and are starting to significantly affect er overall quality of life. I have explained to the patient that as their condition progresses it will cause further neurological deficits and eventual paralysis. Based on the patients imaging, physical exam, and the rapid progression and disabling nature of their symptoms, at this time I recommend surgery in the form of a: C5-7 ACDF. I discussed the risk and benefits of this procedure at length with Ms. Zamudio. The patient agreed to considered pursuing the procedure above mentioned . Prior to surgery, she should follow up with her PCP (Cardio, ID, IM etc) for cherry kern. Questions were invited and answered, and the patient wishes to proceed as outlined below. Currently, I am recommendin.C5-7 ACDF 2.Follow up with PCP for surgical clearance 3.Review of surgical risks and benefits as well as an educational packet on the proposed surgical procedure. Risks: All surgical procedures come with inherent risks, including those related to positioning, anesthesia, intraoperative findings, and postoperative complications. It is important to understand that surgery does not come with any guarantee of a successful outcome as complications and adverse events are always possible. The patient was given a handout in office today discussing the surgical procedure and risks associated with the intervention, both of which were discussed with the patient. These risks include but are not limited to the following: * Experiencing same, different or even worse symptoms in back, neck, arms, or legs compared to before surgery. Requiring further surgery or other forms of treatment presently or at some time in the future at same or other levels of the intended spine surgery. On an extreme but fortunately relatively rare basis severe complication such as blindness, stroke, heart attack, temporary and/or permanent nerve injury, paralysis, coma, or may occur, sometimes without known explanation. Surgical complications may include but are not limited to risk of infection, fluid accumulation in the surgical dissection site, including a se lio or hematoma, that requires additional surgery, wound drainage, bleeding, new numbness or weakness, vision changes/loss, spinal fluid leakage, non-healing and/or infected incision, headaches, difficulty or inability to swallow, hoarseness, hemopneumothorax, pneumothorax, impotence, retrograde ejaculation, vaginal dryness; injury to nerves, spinal cord, blood vessels, lymphatics or other vital organs (i.e., bowel injury, injury to the great vessels); heterotopic bone formation; complications related to the hardware such as screws, rods, cages including misplaced hardware, device failure, in strumentation at the wrong spine level, hardware fracture/breakage, or hardware loosening; vertebral failure of the spinal column above or below the newly placed hardware; retained surgical instrumentations or devices and the need for further surgery. * Medical risks of the planned spine surgery include but are not limited to generalized Infections to the whole body or local areas outside of the surgical site (sepsis), heart attack, bleeding, anaphylaxis, meningitis, seizure, epilepsy, hearing loss, burn johnson, laceration of the head or other areas of the body, bruising, hypersensitivity of the skin, bladder over distension; allergic reaction; shoulder injury related to positioning; fat, blood and air clots to other areas of the body like heart, lungs, brain; failure of internal organs such as lungs, kidneys, liver and excessive bleeding. If blood transfusions are necessary, note that transfusions may cause intolerance reactions such as anaphylaxis or other complex reactions. Despite best efforts, the results of spine surgery might not heal in terms of bone, soft tissues such as skin, fascia, ligaments, and joints. Additionally, in order to achieve best possible results, spine surgery may be carried out beyond the initially planned levels and involve decompression, fusion including insertion of hardware at levels other than the original intended area of surgical interest change some portions of the procedure in order to ensure the best possible outcomes. With spine surgery and spinal fusion, there are different off label uses of instrumentation (devices, implants and hardware) as well as biological substances (bone morphogenic proteins, demineralized bone matrix) as well as using extra bone from allograft sources (i.e. cadaver bone) or autograft (iliac crest bone, ribs, or the spine itself). The patient has been given information about these practices and their inherent risks and benefits. [facility] is an educational center that serves as a training facility for neurosurgical and orthopedic PROCEDURAL NURSE and Nursing students. Physician assistants are medically trained surgical providers who function in the outpatient, inpatient, and operating room setting under the direct supervision of the attending surgeon. [facility] has multiple operating rooms with single and overlapping rooms running daily. They currently function under the required guidelines as produced by the [facility] Finance Committee with regards to the overlapping rooms and will continue to comply with changes to this policy as they occur. The requirements include and are complied with as follows: (1) the critical portions of the overlapping rooms will not occur at the same time, (2) the attending physician will be physically present during the critical portions of the procedure and immediately available during the entire case, and (3) a back-up attending is designated should the primary attending not be immediately available. The patient has had a chance to review all the listed information, has been given print outs detailing this information, and has had all his/her questions answered to their satisfaction. It was my pleasure to have seen and examined Ms. Zamudio. In our visit today we have had a chance to go over my understanding of our patient's current condition, the natural course history without intervention and various interventional options. Questions were invited and answered, and the patient wishes to proceed as outlined above. I have seen and examined the patient for 25 minutes and we have spent more than 50% of the time in repeat and detailed counseling about the patient's condition, its natural course history with out and as much as can be predicted with surgery and re-review of various surgical treatment options. In conclusion, Ms. Zamudio and [his/her spouse/partner] requested we proceed with the above suggested surgery and are willing to accept risks and limitations of the suggested surgery as nature of the disease process and our best attempts at treatment for the condition. Thank you again for allowing us to be part of your patient's care. Please don't hesitate to contact me if you have any further questions. Follow- up: DEL Post procedure 1month 6wks 3 months 6 months 1 year Patient Education: (Informational booklet, instructions, etc) given at today's appointment: DEL Yes .ED:Patient Education: Y Medications Reviewed: YES In our visit today Ms. Zamudio and I have had a chance to go over my understanding of the patient's current condition, the natural course history without intervention and various interventional options. Questions were invited and answered, and the patient wishes to proceed as outlined above. I will be sure to keep you updated afterMs. Zamudio returns here for further follow-up. Thank you again for your referral. Please do not hesitate to contact me if you have any further questions. Signed and authenticated by: CHICHO Arguello E[facility] [address] [place] [address] This message is confidential, intended only for the named recipient(s) and may contain information that is privileged or exempt from disclosure under applicable law. If you are not the intended recipient(s), you are notified that the dissemination, distribution or copying of this information is strictly prohibited. If you received this message in error, please notify the sender then delete this message. Patient verbalizes understanding of the information discussed. The above note was initiated by Caleb Dubon, physician recording hospital aides and assistants teacher for Dr. Michele aMrtinez. This note has been reviewed by Dr. Martinez, who has made his personal changes and impressions for this document. CC: Claudia Tran NP Past Medical History Past Medical History: Fibromyalgia, GERD/Reflux, Hypertension, Liver Disease, Osteoarthritis (OA), Skin Disorder, Thyroid Disorder Additional Past Medical History / Comment(s): Diverticulitis; migraines, neuropathy- feet. rosacea face and scalp, non etoh fatty liver. interstitial cystitis. neck pain History of Any Multi-Drug Resistant Organisms: None Reported Past Surgical History: Cholecystectomy, Heart Catheterization, Hernia Repair, Hysterectomy, Orthopedic Surgery, Tonsillectomy Additional Past Surgical History / Comment(s): left knee arthroscopy x 2, left knee replacement, kd carpal tunnel, kd feet bunionectomy, arthroscopy rt shoulder, rt inguinal. ovaries removed. kd bunionectomy, rt shoulder repair and replaced. Past Anesthesia/Blood Transfusion Reactions: No Reported Reaction Additional Past Anesthesia/Blood Transfusion Reaction / Comment(s): blood transfusions. no issues Past Psychological History: Anxiety, Depression Smoking Status: Never smoker Past Alcohol Use History: None Reported Past Drug Use History: None Reported - Past Family History Father Family Medical History: Cancer Additional Family Medical History / Comment(s): melanoma Mother Family Medical History: Cancer Additional Family Medical History / Comment(s): breast and colon cancer Medications and Allergies Home Medications Medication Instructions Recorded Confirmed Type Amitriptyline HCl [Elavil] 100 mg PO PC-SUPPER 10/14/18 04/28/23 History Butalb/APAP/Caff 50-325-40Mg 1 - 2 tab PO Q4H PRN 10/14/18 04/28/23 History [Fioricet 50-325-40] Cholecalciferol (Vitamin D3) 4,000 unit PO DAILY 10/14/18 04/28/23 History [Vitamin D3] atenoloL [Tenormin] 50 mg PO PC-SUPPER 10/14/18 04/28/23 History Levothyroxine Sodium [Synthroid] 88 mcg PO DAILY 10/31/19 04/28/23 History QUEtiapine XR [SEROquel XR] 450 mg PO HS 10/31/19 04/28/23 History Sertraline [Zoloft] 100 mg PO DAILY 10/31/19 04/28/23 History Cyclobenzaprine [Flexeril] 10 mg PO Q8H 01/08/23 04/28/23 History Omeprazole 40 mg PO DAILY 01/08/23 04/28/23 History Clindamycin Phosphate [Cleocin T 1 applic TOPICAL BID 02/02/23 04/28/23 History 1%] Ivermectin [Ivermectin 1%] 1 applic TOPICAL DAILY 02/02/23 04/28/23 History metroNIDAZOLE [metroNIDAZOLE 0.75%] 1 applic TOPICAL DAILY 02/02/23 04/28/23 History ALPRAZolam [Xanax] 0.25 mg PO DAILY PRN 04/28/23 04/28/23 History Amoxicillin 500 mg PO DIRECTED PRN 04/28/23 04/28/23 History Allergies Allergy/AdvReac Type Severity Reaction Status Date / Time Sulfa (Sulfonamide Allergy Severe Rash/Hives Verified 04/28/23 14:09 Antibiotics) Physical Examination Osteopathic Statement: *. No significant issues noted on an osteopathic structural exam other than those noted in the History and Physical/Consult.
[~2023-05-05 11:06] MED LIST changes: +ACETAMINOPHEN TAB 500 MG TAB PO PRN; +GABAPENTIN 300 MG CAP PO PRN; -LACTATED RINGERS 1,000 ML IV SCH; +ONDANSETRON 4 MG/2 ML VIAL IVP PRN; +TRANEXAMIC 1,000 MG/100ML-NACL 1,000 MG in SALINE 1 100ML.BAG IVPB PRN
[2023-05-05] MEDS: LACTATED RINGERS 1,000 ML IV SCH (11:57)
[2023-05-05] MEDS ORDERED: KETAMINE 10 MG/ML 20 ML VIAL ONE (13:36)
[2023-05-05] MEDS ORDERED: HYDROmorphone (PF) 1 MG/ML ONE (13:36)
[2023-05-05] MEDS ORDERED: PHENYLEPHRINE 10 MG/ML VIAL ONE (13:36)
[2023-05-05] MEDS ORDERED: LIDOCAINE 2% INJ 20 MG/ML (2 ML VIAL) ONE (13:36)
[2023-05-05] MEDS ORDERED: TRANEXAMIC 1,000 MG/100ML-NACL PREMIX BAG ONE (13:36)
[2023-05-05] MEDS ORDERED: MIDAZOLAM 2 MG/2 ML VIAL ONE (13:36)
[2023-05-05] MEDS ORDERED: SUCCINYLCHOLINE CHLORIDE 200 MG/10 ML VIAL IV ONE (13:36)
[2023-05-05] MEDS ORDERED: PROPOFOL 10 MG/ML 20 ML VIAL IV ONE (13:36)
[2023-05-05] MEDS ORDERED: fentaNYL (PF) 50 MCG/ML 2 ML AMP ONE (13:36)
[2023-05-05] MEDS ORDERED: THROMBIN (BOVINE) 5,000 UNIT VIAL TOPICAL ONE (14:19)
[2023-05-05] MEDS ORDERED: GELATIN SPONGE,ABSORB (LARGE) 1 EACH SPONGE TOPICAL ONE (14:20)
[2023-05-05] MEDS ORDERED: MAGNESIUM HYDROXIDE 2,400 MG/30 ML CUP PO PRN (15:06)
[2023-05-05] MEDS ORDERED: HYDROcodone/APAP 10-325MG 1 EACH TAB PO PRN (15:06)
[2023-05-05] MEDS ORDERED: HYDROcodone/APAP 5-325MG 1 EACH TAB PO PRN (15:06)
[2023-05-05] MEDS ORDERED: CYCLOBENZAPRINE 5 MG TAB PO PRN (15:06)
[2023-05-05] MEDS ORDERED: SENNOSIDES-DOCUSATE SODIUM 1 EACH TAB PO PRN (15:06)
[2023-05-05] MEDS ORDERED: HYDROmorphone 0.5 MG/0.5 ML SYRINGE IVP PRN (15:06)
[2023-05-05] MEDS: HYDROmorphone 0.5 MG/0.5 ML SYRINGE IVP PRN ×4 (16:11→16:59)
--- NOTE | 2023-05-05 16:12 | XR ---
Intraoperative/procedural fluoroscopic services were provided for cervical discectomy and fusion. Tot al fluoroscopy time is 40.2 seconds with a total of 6 submitted images to PACS. Total DAP 0.5260 Gycm 2. Please see the operative note for further details.
[2023-05-05] MEDS ORDERED: ONDANSETRON 4 MG/2 ML VIAL IVP ONE (17:02)
[2023-05-05 17:17] VITALS: RESP 16
--- NOTE | 2023-05-05 17:49 | CT ---
EXAMINATION TYPE: CT cervical spine wo con DATE OF EXAM: 05/05/2023 COMPARISON: None HISTORY: s/p C5-C ACDF CT DLP: 317.3 mGycm. Automated Exposure Control for Dose Reduction was Utilized. TECHNIQUE: CT scan of the cervical spine is obtained without contrast, axial images are obtained, sa gittal and coronal reformatted images are also reviewed. FINDINGS: C2-3: Within normal limits C3-4: Moderate degenerative disc space narrowing. Ventral and dorsal spondylosis mild posterior disc bulge. No evidence for central stenosis. Mild bilateral neural foraminal encroachment. Normal alignme nt. Degenerative change of the cervical apophyseal joints. C4-5: Mild to moderate degenerative disc space narrowing. Small ventral and dorsal spurring seen. Mil d disc bulge seen posteriorly with mild effacement ventral thecal sac. Degenerative change of the cer vical apophyseal joints with mild bilateral neural foraminal encroachment. C5-6: Postoperative changes of anterior cervical discectomy and fusion. Intervertebral spacer noted t o be in place. Anterior stabilizing hardware is well seated. There is a 1.9 mm anterior subluxation o f C5 on C6. Postsurgical soft tissue changes are present. C6-7:Postoperative changes of anterior cervical discectomy and fusion. Intervertebral spacer noted to be in place. Anterior stabilizing hardware is well seated. Anatomic alignment is present. Postsurgic al soft tissue changes are present. C7-T1: Mild degenerative disc space narrowing. No disc herniation or central stenosis. No foraminal e ncroachment. No fracture or subluxation. Postsurgical soft tissue changes seen without unusual collection. Surgica l drain is noted. IMPRESSION: 1. Postoperative changes of ACDF at C5-6 and C6-7. There is 1.9 mm anterolisthesis of C5 on C6. 2. Degenerative disc disease as discussed with spondylosis and foraminal encroachment.
--- NOTE | 2023-05-05 18:15 | P.OP ---
Date of Procedure: 05/05/23 Preoperative Diagnosis: 1. C5-7 SPONDYLOSIS WITH STENOSIS 2. UE RADICULOPATHY WITH PARESTHESIAS 3. NECK PAIN Postoperative Diagnosis: 1. C5-7 SPONDYLOSIS WITH STENOSIS 2. UE RADICULOPATHY WITH PARESTHESIAS 3. NECK PAIN Procedure(s) Performed: 1. C5-6, C6-7 ANTERIOR CERVICAL INTERBODY ARTHRODESIS (56442, [id number]) 2. INSERTION OF BIOMECHANICAL DEVICE X2 C5-7 ([id number]) USE OF IONM USE OF IO MICROSCOPE Implants: -GLOBUS COALITION MIS XL 7 DEG X2 8 MM -MAGNATOS Anesthesia: GETA Surgeon: Michele Martinez Level Vial Inspector #1: Angelo Lamb (WAS PRESENT AND ASSISTED WITH ALL ASPECTS OF THE CASE FROM POSITION TO CLOSURE. ) Estimated Blood Loss (ml): 25 IV fluids (ml): 650 Urine output (ml): 0 Pathology: none sent Condition: stable Disposition: PACU Indications for Procedure: Ms. Zamudio is presenting for evaluation of neck pain. It was my pleasure to have seen and examined Ms. Zamudio. In our visit today we have had a chance to go over subjective complaints, physical examination findings and treatments including the natural course history without intervention and various interventional options. The patients imaging demonstrates: XRay Cervical multiview (Lateral, Flexion, Extension, AP, Oblique) 6 views taken at [facility] on 11/19/22: Reviewed with the patient today. Moderate multilevel spondylitic and degenerative changes with flattening of the normal lordosis. Multilevel diminished disc height. Vertebral body heights are preserved. C4-C7 bilateral foraminal stenosis. No subluxation between flexion and extension films. No acute osseous abnormalities. [facility]12/15[facility]: Reviewed with the patient today. IMPRESSION: 1. C5-C6 and C6-C7 mild to moderate spinal canal stenosis without evidence of cord signal change. 2. Degeneration changes throughout the spine worse at C5-6 and C6-C7 worse at C6-C7 and on the left with or neural foraminal spinal canal stenosis. On physical exam, Ms. Zamudio demonstrates: a constant aching cervical pain that radiates down into the left upper extremity, associated with numbness and tingling. The patient reports experiencing issues with hand dexterity. She states that she feels her left arm symptoms have been worsening over the last 1 month. The patient states that her symptoms have become debilitating and are starting to significantly affect er overall quality of life. I have explained to the patient that as their condition progresses it will cause further neurological deficits and eventual paralysis. Based on the patients imaging, physical exam, and the rapid progression and disabling nature of their symptoms, at this time I recommend surgery in the form of a: C5-7 ACDF. I discussed the risk and benefits of this procedure at length with Ms. Zamudio. The patient agreed to considered pursuing the procedure above mentioned . Prior to surgery, she should follow up with her PCP (Cardio, ID, IM etc) for clearance. Questions were invited and answered, and the patient wishes to proceed as outlined below. Currently, I am recommendin.C5-7 ACDF Description of Procedure: C5-7 ACDF (Stand Alone) The patient was seen and examined in the preoperative area. All preoperative protocols were followed. Informed consent was obtained risks and benefits of the procedure were discussed at length. Risks including bleeding infection damage to the surrounding tissue and risk of re-operation were discussed with the patient. Risk of anesthesia up to and including was a discussed with the patient. These are outlined in the risk review. They were willing to accept these risks and all the risks of surgery. The patient was given a weight-based dose of antibiotics in the form of 2 g Ancef. The patient was seen and evaluated by the anesthesia team who deemed them fit for surgery. The site was marked, the patient was willing to proceed with the procedure. The patient was transferred to the operative suite by the Department of anesthesia. They were then drifted off to sleep by the department anesthesia and GETA was performed. The patient tolerated this well. Bean catheter was placed by nursing staff, a-traumatically. Once confirmation of lines and ventilation the patient was transferred to a Supine Sascha table very carefully. All bony prominences including wrists, elbows, axilla, chest, hips, and thighs, and feet were padded very well. Special attention was paid to the genitalia, and these were padded accordingly. SCDs were placed on bilateral lower extremities and were connected. Arms were well padded and placed at their side thumbs up. Once in position, again we confirmed good ventilation capabilit ies and that lines were running appropriately. The patients Cervical spine was then exposed. 1010s were placed outlining the incision site. Standard alcohol was used to clean the incision site and allowed to dry. C-arm was used to bio- micaela the patient and confirm level for incision which was marked with a skin marker. Operative briefing was performed with all teams and everyone in agreement to proceed. The patient was then prepped and draped in a normal sterile fashion. Timeout was then performed, and all parties agreed with the procedure to be performed. Transverse skin incision was then made on the right side of the patients neck 3 cm and dissection taken down to the platysma which was split transversely. Sub platysma flap was made, and interval identified between SCM and medial structures. Omohyoid was visualized and protected. Blunt dissection taken down to the anterior cervical facia which was identified. Blunt probe was then placed and lateral image taken which confirmed levels for operation. These levels were then marked with a bovi. Subperiosteal dissection of the longissimus muscles were then done over these levels identifying uncovertebral joints bilaterally. Retractor was then placed deep to these muscles and held in place with a bed arm. Starting at C6-7, Sidnaw pins were placed into C6 and C7 and gentle distraction taken out over the levels. Jade rongure used to remove disc material. Operating microscope brought in for visualization. Complete discectomy performed at this level with curette, rongure and pituitary. High speed kenny used to remove osteophytes anteriorly and posteriorly until PLL was identified. 6-0 up curette then used to identify the canal and resect the PLL. 2-0 and 3-0 Kerrison used then to remove PLL and disc herniation and performed b/l foraminotomies. Once good decompression accomplished, meticulous hemostasis was performed. Sizers were then placed under lateral fluoroscopy until the desired height and lordosis. Cage was then selected, packed with autograft and allograft and placed under lateral imaging. Once in good position it was tested and stable. Motors run before and after cage placement were st able. The wound was irrigated, and autograft placed lateral to the cage anteriorly for fusion. Sidnaw pin was then removed from C7 and placed into C5. Gentle distraction taken out over C5-6 now. Complete discectomy done at C5-6 as described including decompression, b/l foraminotomies and PLL resection. Burring of endplates was minimal, osteophytes removed as described. Spacers were then siz ed and placed under lateral imaging. Cage selected, packed with graft and placed under lateral images. Once in position, meticulous hemostasis performed, and motors remained stable before and after cage placement. AP image confirmed good placement of cages. Wound was irrigated. Sidnaw pin was then removed from C5 and C6 and bone wax placed in their void. Meticulous hemostais was achieved. After each cage placement, anchors were placed through the cage with good purchase using lateral imaging. All anchors were locked in position and had good purchase. All locking mechanisms set, and all anchors had good purchase. Final AP and lateral images taken confirmed good placement of hardware and good reduction and confucianist of height. The wound was then irrigated copiously with NSS. S urgicel placed deep in the wound. A deep drain placed out a separate incision and sewed into place. Layered closure then performed with 3-0 Vicryl in the platysma and sub-Q tissue. 4-0 Strata fix in the subcuticular tissue. The wound was then cleaned, and dried and skin glue placed. Once glue dried an Opifoam was placed. The patient was then transferred back to their hospital bed a-traumatically. The drain continued to hold suction. They were placed in a hard collar. They were then awakened by the department of anesthesia having tolerated the procedure well without complications.
[2023-05-05] MEDS: HYDROmorphone 1 MG/ML 1 ML SYRINGE IVP PRN ×2 (19:00→23:18)
[2023-05-05] MEDS: ACETAMINOPHEN TAB 325 MG TAB PO SCH (20:34)
[2023-05-05] MEDS ORDERED: ALPRAZolam 0.25 MG TAB PO PRN (21:36)
[2023-05-05] MEDS ORDERED: ONDANSETRON 4 MG/2 ML VIAL IVP PRN (21:36)
[2023-05-05] MEDS ORDERED: atenoloL 50 MG TAB PO SCH (21:45)
[2023-05-05] MEDS ORDERED: AMITRIPTYLINE HCL 50 MG TAB PO SCH (21:45)
[2023-05-05] MEDS: QUEtiapine 50 MG TAB PO SCH (23:47)
--- NOTE | 2023-05-06 01:17 | P.CONS ---
History of Present Illness - Reason for Consult Consult date: 05/05/23 post op medical management - Chief Complaint scheduled cervical spine fusion - History of Present Illness 67 year old female with hypertension , hypothyroid patient coming in for scheduled cervical spine surgery , which she tolerated well no observed immediate post op complications. denies any medical concerns. denies any chest pain , SOB, headache, new onset weakness or numbness, denies an y abd pain. she reports some nausea and vomiting, and requesting medication for nausea deneis tobacco smoking, illicit drugs or alcohol review of systems Pertinent positives as noted in HPI. All other systems were reviewed and are negative on exam Constitutional: No acute distress, conversant, pleasant Eyes: Anicteric sclerae, moist conjunctiva, Pupils equal round reactive to light ENMT: NC/AT Oropharynx clear, no erythema, or exudates Neck: hard neck collar in place Lungs: Clear to auscultation Clear to percussion Normal respiratory effort, no accessory muscle use Cardiovascular: Heart regular in rate and rhythm, No murmurs, gallops, or rubs No peripheral edema Abdominal: Soft Nontender, no guarding, rebound or rigidity Abdomen moving with respiration Normoactive bowel sounds No hepatomegaly, No splenomegaly No palpable mass No abdominal wall hernia noted Skin: Normal temperature, tone, texture, turgor Extremities: No digital cyanosis No clubbing Pedal pulses intact and symmetrical Radial pulses intact and symmetrical No calf tenderness Psychiatric: Alert and oriented to person, place and time Appropriate affect fair judgement Neuro Muscles Strength 5/5 in all 4 extremities Sensation to light touch grossly present throughout Cranial nerves II-XII grossly intact Lymphatics: no palpable cervical or supraclavicular lymph nodes Past Medical History Past Medical History: Fibromyalgia, GERD/Reflux, Hypertension, Liver Disease, Osteoarthritis (OA), Skin Disorder, Thyroid Disorder Additional Past Medical History / Comment(s): Diverticulitis; migraines, neuropathy- feet. rosacea face and scalp, non etoh fatty liver. interstitial cystitis. neck pain History of Any Multi-Drug Resistant Organisms: None Reported Past Surgical History: Cholecystectomy, Heart Catheterization, Hernia Repair, Hysterectomy, Orthopedic Surgery, Tonsillectomy Additional Past Surgical History / Comment(s): left knee arthroscopy x 2, left knee replacement, kd carpal tunnel, kd feet bunionectomy, arthroscopy rt shoulder, rt inguinal. ovaries removed. kd bunionectomy, rt shoulder repair and replaced. Past Anesthesia/Blood Transfusion Reactions: No Reported Reaction Additional Past Anesthesia/Blood Transfusion Reaction / Comm: blood transfusions. no issues Past Psychological History: Anxiety, Depression Smoking Status: Never smoker Past Alcohol Use History: None Reported Past Drug Use History: None Reported Additional Drug Use History / Comment(s): cbd - Past Family History Father Family Medical History: Cancer Additional Family Medical History / Comment(s): melanoma Mother Family Medical History: Cancer Additional Family Medical History / Comment(s): breast and colon cancer Medications and Allergies Home Medications Medication Instructions Recorded Confirmed Type Amitriptyline HCl [Elavil] 100 mg PO PC-SUPPER 10/14/18 05/05/23 History Butalb/APAP/Caff 50-325-40Mg 1 - 2 tab PO Q4H PRN 10/14/18 05/05/23 History [Fioricet 50-325-40] Cholecalciferol (Vitamin D3) 4,000 unit PO DAILY 10/14/18 05/05/23 History [Vitamin D3] atenoloL [Tenormin] 50 mg PO PC-SUPPER 10/14/18 05/05/23 History Levothyroxine Sodium [Synthroid] 88 mcg PO DAILY 10/31/19 05/05/23 History QUEtiapine XR [SEROquel XR] 450 mg PO HS 10/31/19 05/05/23 History Sertraline [Zoloft] 100 mg PO DAILY 10/31/19 05/05/23 History Cyclobenzaprine [Flexeril] 10 mg PO Q8H 01/08/23 05/05/23 History Omeprazole 40 mg PO DAILY 01/08/23 05/05/23 History Clindamycin Phosphate [Cleocin T 1 applic TOPICAL BID 02/02/23 05/05/23 History 1%] Ivermectin [Ivermectin 1%] 1 applic TOPICAL DAILY 02/02/23 05/05/23 History ALPRAZolam [Xanax] 0.25 mg PO DAILY PRN 04/28/23 05/05/23 History Amoxicillin 500 mg PO DIRECTED PRN 04/28/23 05/05/23 History Allergies Allergy/AdvReac Type Severity Reaction Status Date / Time Sulfa (Sulfonamide Allergy Severe Rash/Hives Verified 05/05/23 11:44 Antibiotics) duloxetine [From Cymbalta] AdvReac Unknown Verified 05/05/23 12:03 gabapentin AdvReac Unknown Verified 05/05/23 12:03 pregabalin [From Lyrica] AdvReac Unknown Verified 05/05/23 12:03 Physical Exam Vitals: Vital Signs Temp Pulse Pulse Resp BP BP Pulse Ox 05/05/23 17:25 94 16 152/81 98 05/05/23 17:15 86 16 158/84 99 05/05/23 17:00 87 18 157/80 98 05/05/23 16:45 93 16 157/75 99 05/05/23 16:30 88 16 158/78 99 05/05/23 16:15 92 16 162/80 98 05/05/23 16:02 97.6 F 100 16 162/79 100 05/05/23 11:53 97.2 F L 105 H 16 141/72 97 Intake and Output 05/05/23 05/05/23 05/06/23 14:59 22:59 06:59 Intake Total 1050 200 Output Total 25 529 Balance 1050 175 -529 Intake: IV 1050 200 Output: Post Void Residual 529 Estimated Blood Loss 25 Other: Weight 64.5 kg 64.5 kg Assessment and Plan Assessment: cervical spine surgery POD zero pain management per ortho hypertension resume atenolol 50 mg daily hypothyroid resume levothyroxine 88 mcg stable from medical stand piont check BMP and CBC in AM thank you for this consultation
[2023-05-06] MEDS: ACETAMINOPHEN TAB 325 MG TAB PO SCH ×3 (01:45→11:46)
[2023-05-06] MEDS: LACTATED RINGERS 1,000 ML IV SCH (02:01)
[2023-05-06] MEDS ORDERED: METOCLOPRAMIDE 5 MG/ML 2 ML VIAL IVP STA ×2 (03:23→03:33)
[2023-05-06] MEDS ORDERED: LEVOTHYROXINE 88 MCG TAB PO SCH (06:30)
[2023-05-06 07:32] VITALS: BP 120/74; PULSE 68; TEMP 98.2
[2023-05-06] MEDS ORDERED: PANTOPRAZOLE 40 MG/10 ML VIAL IVP SCH (09:00)
[2023-05-06] MEDS ORDERED: SERTRALINE 100 MG TAB PO SCH (09:00)
[2023-05-06 09:19] LABS: Basophils # (A) 0.03 X 10*3/uL (0.00-0.10); Basophils % (A) 0.3 %; Eosinophils # (A) 0 X 10*3/uL (0.04-0.35); Eosinophils % (A) 0 %; HCT 38.6 % (37.2-46.3); HGB 12.6 d/dL (12.0-15.0); Lymphocytes # (A) 0.46 X 10*3/uL (0.90-5.00); Lymphocytes % (A) 4.9 %; MCH 31.7 pg (27.0-32.0); MCHC 32.6 d/dL (32.0-37.0); Mean Platelet Volume 10.2 FL (9.5-12.2); Monocytes # (A) 0.65 X 10*3/uL (0.20-1.00); Monocytes % (A) 6.9 %; NRBC Per 100 WBC 0 X 10*3/uL (0.00-0.01); Neutrophils # (A) 8.24 X 10*3/uL (1.80-7.70); Neutrophils % (A) 87.4 %; Platelet Count 285 X 10*3/uL (140-440); RBC 3.98 X 10*6/uL (4.10-5.20); RDW 12.4 % (11.5-14.5); WBC 9.43 X 10*3/uL (4.50-10.00)
[2023-05-06] MEDS: QUEtiapine 50 MG TAB PO SCH (09:36)
[2023-05-06 10:43] LABS: BUN/Creat Ratio 14.83 Ratio (12.00-20.00); Blood Urea Nitrogen 8.9 mg/dL (9.0-27.0); Calcium 8.8 mg/dL (8.7-10.3); Carbon Dioxide 23.4 mmol/L (21.6-31.8); Chloride 103 mmol/L (96-109); Glucose 138 mg/dL (70-110); Potassium 4.8 mmol/L (3.5-5.5); Sodium 138 mmol/L (135-145)
--- NOTE | 2023-05-06 12:16 | P.PN ---
Subjective Progress Note Date: 05/06/23 Principal diagnosis: Status post C5-C7 ACDF Patient is evaluated today at bedside, she is resting in her hospital bed, she has a friend at bedside. She is feeling pretty well today, she is here to go home. Patient does have an episode of vomiting this morning, this has improved, she denies any current nausea. She did have a straight cath late last night/early this morning due to urinary retention, she has been urinating since then without difficulty. She's ambulated around the room with minimal assistance. She denies any headaches, lightheadedness, chest pain or shortness of breath. She notes improvement in the overall numbness and tingling symptoms of bilateral upper extremities. Objective - Vital Signs Vital signs: Vital Signs Temp 98.2 F 05/06/23 07:32 Pulse 68 05/06/23 07:32 Resp 16 05/06/23 07:32 BP 120/74 05/06/23 07:32 Pulse Ox 98 05/06/23 07:32 FiO2 Intake & Output 05/05/23 05/06/23 05/06/23 18:59 06:59 18:59 Intake Total 1250 Output Total 25 529 Balance 1225 -529 Weight 64.5 kg Intake: IV 1250 Output: Post Void Residual 529 Estimated Blood Loss 25 - Exam Gen: AOx3, NAD VSS stable at this time Integument: Postop and it shows removed at bedside. The drain was also removed, there is mild serosanguineous drainage noted. Bandage was applied. Palpation: Mild tenderness with palpation to the right side of the neck, no tenderness throughout the posterior cervical spine ROM: Range of motion all major muscle groups of the bilateral upper and lower extremities, no focal deficits appreciated Sensory Exam: Senory exam to light touch is intact C5-T1 Senosry exam to light touch is intact L2-S1 Motor: 4+/5 strength appreciated in the bilateral upper extremities with shoulder elevation, shoulder abduction, elbow extension, elbow flexion, wrist extension, wrist flexion, sourcing internship Reflexes: 2/4 in all UE and LE Positive Hoffmans bilaterally, improved since surgery Negative Babinski Negative clonus - Labs CBC & Chem 7: 05/06/23 05:49 05/06/23 05:49 Labs: Abnormal Lab Results - Last 24 Hours (Table) 05/06/23 05/06/23 Range/Units 05:49 05:49 RBC 3.98 L (4.10-5.20) X 10*6/uL Neutrophils # 8.24 H (1.80-7.70) X 10*3/uL Lymphocytes # 0.46 L (0.90-5.00) X 10*3/uL Eosinophils # 0 L (0.04-0.35) X 10*3/uL BUN 8.9 L (9.0-27.0) mg/dL Glucose 138 H (70-110) mg/dL Assessment and Plan Assessment: Postoperative day #1 status post C5-C7 ACDF Plan: Pain control, plan for discharge home on [place] 10 mg/325 mg. Patient will resume Flexeril once discharged Wound care instructions discussed today bedside, as to include icing along with showering Rigid c-collar instructions were discussed Activity level and restrictions were discussed Medical recommendations appreciated Discharge planning: Patient stable for discharge home today Time with Patient: Less than 30
--- NOTE | 2023-05-06 12:24 | P.DS ---
Providers Date of admission: 05/06/23 08:58 Expected date of discharge: 05/06/23 Attending physician: Michele Martinez DO Consults: 05/05/23 15:06 Consult Physician Routine Consulting Provider: Lilliana Victoria Consult Reason/Comments: medical management s/p C5-C7 ACDF Do you want consulting provider notified?: Yes Primary care physician: Claudia [facility] Course: Date of admission: 05/05/2023 Date of discharge: 05/06/2023 Admission diagnosis: Status post C5-C7 ACDF Discharge diagnosis: Same Attending physician: Dr. Martinez Surgical procedures: C5C7 ACDF Brief history: Patient is a 67-year-old female with a history of neck pain along the bilateral upper extremity weakness and radiculopathy. At this point patient has failed conservative treatment measures and has opted to proceed with a elective C5-C7 ACDF. Hospital course: Details of patient's surgery can be found in operative report. Patient tolerated the procedure well and was subsequently transported to orthopedic floor. Patient's orthopeidc and medical care was provided daily. Patient had daily laboratory tests performed for evaluation of overall blood counts. Patient had daily physical therapy to include strengthening range of motion as well as education with walker ambulation. Patient was treated with compression stocking for their postoperative D[facility] Patient was noted to have a relatively uneventful postoperative course. Patient reported satisfactory pain control with oral pain medications by postoperative day 1. Patient showed satisfactory progress with physical therapy. Patient moved steadily through the program and had no difficulty meeting the goals by postoperative day 1. Given patient's otherwise satisfactory course and having met physical therapy goals, plan is to discharge patient home on postoperative day 1. Discharge condition/disposition: Patient will be discharged home in stable condition. Discharge medications: Instructions are given on resumption of patient's normal daily medications per primary care recommendation, in addition patient will be prescribed [place] James 10 mg/325 mg, Duricef 500 mg. Spine Discharge and Recovery Instructions Leave your dressing in place for a total of 5 days post operatively. Then you may remove your dressing and leave open to air. Keep the area clean and if not able to keep area clean, then cover with sterile gauze and tape. Showering: You may shower 3 days after your procedure allowing soap and water to run over incision. Do not scrub. Do not soak. Blot dry. Follow up: Please confirm a follow up appointment with your surgeon 3 weeks post operatively. Please make an appointment to follow up with your PCP in 1-2 weeks after surgery for evaluation 3 phase, 3-week plan POST OP WEEKS 1-3 1. Lifting/carrying/pushing/pulling limited to less than 5 pounds. 2. Do not sit for longer than 15 minutes at one time. Get up and walk around. Prolonged sitting is NOT advised. If you lay down, see if you can tolerate laying down on you front (belly side) 3. Walk for periods of 15 minutes = 1 mile but no longer; do it multiple times times each day. 4. Ice your low back after activity. POST OP WEEKS 3-6 1. Lifting limited to less than 20 pounds. 2. Do not sit for longer than 30 minutes at a time. Frequently change positions. Use a sit-to stand workstation or take frequent breaks from sitting if you have returned to work. 3. Walk for 30 minutes each day. If possible, do these three or more times a day POST OP WEEKS 6+ At your 6-week appointment we will give you a physical therapy referral to focus on a core stabilization and strengthening program. You should also work on leg & buttock strengthening, hamstring & quadriceps stretching, and continue a low impact aerobic activity program such as swimming, walking, or riding a stationary bicycle. During the initial 6 weeks after your surgery, you are at the highest risk of re-injuring your spine. You should generally avoid BLTs (bending, lifting and twisting combination motions) and follow the above guidelines to reduce the chance of reinjury. You can anticipate post op appointments in our office at approximately 3 weeks and 6 weeks after your surgery. INCISION CARE: If your incision is not draining you do NOT need to cover it with a dressing. Keep your incision clean, dry and intact. In most cases, we apply skin glue, saeed or sutures to the incision at the time of surgery. This will be like a crust or have the appearance of a scab and will fall off in time on its own. The stitches or saeed need to be removed at 3 weeks post op appointment. You may begin to shower 3 days after surgery (this allows the glue to amato well). However, please avoid scrubbing the incision site or peeling off any of the skin glue. This will ensure optimal healing of your incision. Also, during this time avoid soaking the incision area in water - this includes swimming pools, hot tubs or baths. No ointments, lotions or oils on the incision until your surgeon allows. Leave saeed, sutures or glue in place. Neurological dysfunction that comes on suddenly can also be a sign of a stroke. Below some common symptoms of a stroke are listed: B - balance difficulty such as sudden onset walking or leaning to one side - NEW E - eye problem such as sudden double vision or trouble seeing on one side - NEW F - Facial weakness or numbness on one side - NEW A - Arm or leg weakness or numbness on one side - NEW S - Slurred speech or difficulty with word finding - NEW T - Time is BRAIN! Call 911 as soon as you recognize these symptoms Diet: Consume a regular diet rich in vegetables and lean protein such as chicken or fish. You should consume in a ratio of approximately 20% fats|40% carbohydrates|40%protein. Vegetables, sweet potatoes, brown rice or quinoa are examples of good carbohydrates. Chips, white bread, cookies and sweets/sugar are examples of bad carbohydrates. Limit your bad carbs, go wild with good carbs. "Life's Simple 7" Guidelines as per [place] [employer] These will help you reclaim your life after surgery and help desk support specialist in your recovery, keeping in mind your restrictions. (1) Get Active. Physical activity can help people lose weight, control high blood pressure and cholesterol, feel emotionally better, and sleep better. (2) Control Cholesterol. Avoid a diet high in saturated fat, trans fat, & cholesterol. Limit whole milk & cream, ice cream, butter, egg yolks, processed meats (like sausage and hot dogs), and fatty meats. Choose healthy foods that are low in saturated fat, trans fat and cholesterol which include: Fruits and vegetables, fiber rich grain products (like whole grain pasta and brown rice), lean meat such as chicken, fish, nuts, seeds, and legumes. (3) Eat Better. Eat small portions. Shop at the grocery with a list and do not stray from it. Tips for a healthy diet include: Limit sodium intake to less than 1500mg daily, avoid prepackaged, processed, and fast foods, choose a diet rich in fruits, vegetables, and whole grain, high fiber foods, and limit saturated & cholesterol in your diet. (4) Manage Blood Pressure. If you have high blood pressure, you should have a cuff at home so that you can check your blood pressure regularly. Be sure you have a good cuff. An arm one is generally better than a wrist one. Bring the cuff to a doctor's appointment to validate that the measurements that your cuff are taking are accurate. Take your blood pressure twice daily when you are sitting down and relaxing. Record the numbers in a log and bring this log with you to your doctors' appointments. (5) Lose Weight if your BMI is above 25. A healthy BMI is between 19-25. To calculate Your BMI, you may use a Standard BMI Calculator on the NIH BMI website: <www.nhlbi.nih.gov/guidelines/obesity/BMI/bmicalc.htm>. Weigh oneself daily. If you are overweight, set a goal to lose weight. A pound a week loss if needed is a good target. (6) Reduce Blood Sugar. Limit foods and liquids with "added sugars." (Added sugars include sucrose, fructose, glucose, maltose, dextrose, high fructose corn syrup, corn syrup, concentrated fruit juice and honey). (7) Stop Smoking. If you smoke, quitting smoking is one of the best things that you can do for your health. Smoking increases your risk of heart attack, stroke, and peripheral vascular disease, which is a build-up of plaque in your arteries. Please discard all the cigarettes and lighters in your house. Have a plan for what you will do when you have the urge to smoke. Direct and second- hand smoke shortens your life as well as the lives of your family, friends and others around you. For your health and the health of those around you, please consider quitting! Proper Bending Body Mechanics: Maintain a wide stance with one foot slightly in front of the other. Keep your back straight. Bend utilizing the strength in your hips and knees. Do not bend at the waist. Maintain the lifted object at your waist-level close to your body. Avoid lifting weight that causes immediately pain or pain anywhere in the body afterwards. Smoking/Nicotine If there was ever one thing that you could do to increase your overall health, decrease your risk of cardiovascular problems by about 39% the second you make the choice, it is to STOP SMOKING. Your body's most instant gratification is the second you stop smoking. We have all heard the studies, read the articles but it is true, smoking is extremely bad for your overall health, and moreover it is detrimental to your bone health. Nicotine, IN ANY FORM, kills bone cells, prevents your body from healing fractures, and significantly prolongs healing after surgery. In spine surgery specifically, it increases your risk of not healing your bones to create a fusion and increases your risk of having a revision surgery due to this up to 60%. I know it is hard. I know it feels impossible. But there are ways. Take control of your life. We are here to help you through it. And when you are ready, ask us and we can direct you to help if you desire. Use the START Plan to Quit Smoking (please visit the Helpguide.org website listed below for more information): S = Set a quit date. Choose a date within the next 2 weeks, so you have enough time to prepare without losing your motivation to quit. If you mainly smoke at work, quit on the weekend, so you have a few days to adjust to the change. T = Tell family, friends, and co-workers that you plan to quit. Let your friends and family in on your plan to quit smoking and tell them you need their support and encouragement to stop. Look for a quit malgorzata who wants to stop smoking as well. You can help each other get through the rough times. A = Anticipate and plan for the challenges you'll face while quitting. Most people who begin smoking again do so within the first 3 months. You can help yourself make it through by preparing ahead for common challenges, such as nicotine withdrawal and cigarette cravings. R = Remove cigarettes and other tobacco products from your home, car, and work. Throw away all your cigarettes (no emergency pack!), lighters, ashtrays, and matches. Wash your clothes and freshen up anything that smells like smoke. Shampoo your car, clean your drapes and carpet, and steam your furniture. T = Talk to your doctor about getting help to quit. Your doctor can prescribe medication to help with withdrawal and suggest other alternatives. If you can't see a doctor, you can get many products over the counter at your local pharmacy or grocery store, including the nicotine patch, nicotine lozenges, and nicotine gum. Resources for Quitting Smoking: <https://www.[place].gov/documents/[facility]/Quit_Tobacco_Resources_for_patients_313 480_7.pdf> Supplementation: Take recommended dosages of Vitamin D and Calcium to help fortify your bones and help them to heal. See your health maintenance packet for dosages and recommended levels. DVT/VTE prophylaxis: You will be given compression stockings from the hospital. Wear these daily for the first two weeks after surgery. You may take them off at night. You may be prescribed a medication to help thin your blood. Take this as directed. If you are not prescribed this medication, early and frequent ambulation has been shown to be the best prophylaxis to deep vein thrombosis and sequelae related to this event. Procedures: C5-C7 ACDF Patient Condition at Discharge: Good Plan - Discharge Summary Discharge Rx Participant: No New Discharge Prescriptions: New cefaDROXiL [Duricef] 500 mg PO Q12HR 5 Days #10 cap HYDROcodone/APAP 10-325MG [[place] 10-325] 1 tab PO Q6HR PRN 7 Days #28 tab PRN Reason: Pain No Action Butalb/APAP/Caff 50-325-40Mg [Fioricet 50-325-40] 1 - 2 tab PO Q4H PRN PRN Reason: Pain atenoloL [Tenormin] 50 mg PO PC-SUPPER Amitriptyline HCl [Elavil] 100 mg PO PC-SUPPER Cholecalciferol (Vitamin D3) [Vitamin D3] 4,000 unit PO DAILY QUEtiapine XR [SEROquel XR] 450 mg PO HS Sertraline [Zoloft] 100 mg PO DAILY Levothyroxine Sodium [Synthroid] 88 mcg PO DAILY Ivermectin [Ivermectin 1%] 1 applic TOPICAL DAILY Amoxicillin 500 mg PO DIRECTED PRN PRN Reason: DENTAL WORK Omeprazole 40 mg PO DAILY Cyclobenzaprine [Flexeril] 10 mg PO Q8H Clindamycin Phosphate [Cleocin T 1%] 1 applic TOPICAL BID ALPRAZolam [Xanax] 0.25 mg PO DAILY PRN PRN Reason: Anxiety Discharge Medication List Amitriptyline HCl [Elavil] 100 mg PO PC-SUPPER 10/14/18 [History] Butalb/APAP/Caff 50-325-40Mg [Fioricet 50-325-40] 1 - 2 tab PO Q4H PRN 10/14/18 [History] Cholecalciferol (Vitamin D3) [Vitamin D3] 4,000 unit PO DAILY 10/14/18 [History] atenoloL [Tenormin] 50 mg PO PC-SUPPER 10/14/18 [History] Levothyroxine Sodium [Synthroid] 88 mcg PO DAILY 10/31/19 [History] QUEtiapine XR [SEROquel XR] 450 mg PO HS 10/31/19 [History] Sertraline [Zoloft] 100 mg PO DAILY 10/31/19 [History] Cyclobenzaprine [Flexeril] 10 mg PO Q8H 01/08/23 [History] Omeprazole 40 mg PO DAILY 01/08/23 [History] Clindamycin Phosphate [Cleocin T 1%] 1 applic TOPICAL BID 02/02/23 [History] Ivermectin [Ivermectin 1%] 1 applic TOPICAL DAILY 02/02/23 [History] ALPRAZolam [Xanax] 0.25 mg PO DAILY PRN 04/28/23 [History] Amoxicillin 500 mg PO DIRECTED PRN 04/28/23 [History] HYDROcodone/APAP 10-325MG [[place] 10-325] 1 tab PO Q6HR PRN 7 Days #28 tab 05/06/23 [Rx] cefaDROXiL [Duricef] 500 mg PO Q12HR 5 Days #10 cap 05/06/23 [Rx] Follow up Appointment(s)/Referral(s): Michele Martinez DO [Doctor of Osteopathic Medicine] - 2 Weeks Activity/Diet/Wound Care/Special Instructions: Spine Discharge and Recovery Instructions Dressing: Leave your dressing in place for a total of 5 days post operatively. Then you may remove your dressing and leave open to air. Keep the area clean and if not able to keep area clean, then cover with sterile gauze and tape. Showering: You may shower 3 days after your procedure allowing soap and water to run over incision. Do not scrub. Do not soak. Blot dry. Follow up: Please confirm a follow up appointment with your surgeon 3 weeks post operatively. Please make an appointment to follow up with your PCP in 1-2 weeks after surgery for evaluation 3 phase, 3-week plan POST OP WEEKS 1-3 1. Lifting/carrying/pushing/pulling limited to less than 5 pounds. 2. Do not sit for longer than 15 minutes at one time. Get up and walk around. Prolonged sitting is NOT advised. If you lay down, see if you can tolerate laying down on you front (belly side) 3. Walk for periods of 15 minutes = 1 mile but no longer; do it multiple times times each day. 4. Ice your low back after activity. POST OP WEEKS 3-6 1. Lifting limited to less than 20 pounds. 2. Do not sit for longer than 30 minutes at a time. Frequently change positions. Use a sit-to stand workstation or take frequent breaks from sitting if you have returned to work. 3. Walk for 30 minutes each day. If possible, do these three or more times a day POST OP WEEKS 6+ At your 6-week appointment we will give you a physical therapy referral to focus on a core stabilization and strengthening program. You should also work on leg & buttock strengthening, hamstring & quadriceps stretching, and continue a low impact aerobic activity program such as swimming, walking, or riding a stationary bicycle. During the initial 6 weeks after your surgery, you are at the highest risk of re-injuring your spine. You should generally avoid BLTs (bending, lifting and twisting combination motions) and follow the above guidelines to reduce the chance of reinjury. You can anticipate post op appointments in our office at approximately 3 weeks and 6 weeks after your surgery. INCISION CARE: If your incision is not draining you do NOT need to cover it with a dressing. Keep your incision clean, dry and intact. In most cases, we apply skin glue, saeed or sutures to the incision at the time of surgery. This will be like a crust or have the appearance of a scab and will fall off in time on its own. The stitches or saeed need to be removed at 3 weeks post op appointment. You may begin to shower 3 days after surgery (this allows the glue to amato well). However, please avoid scrubbing the incision site or peeling off any of the skin glue. This will ensure optimal healing of your incision. Also, during this time avoid soaking the incision area in water - this includes swimming pools, hot tubs or baths. No ointments, lotions or oils on the incision until your surgeon allows. Leave saeed, sutures or glue in place. Neurological dysfunction that comes on suddenly can also be a sign of a stroke. Below some common symptoms of a stroke are listed: B - balance difficulty such as sudden onset walking or leaning to one side - NEW E - eye problem such as sudden double vision or trouble seeing on one side - NEW F - Facial weakness or numbness on one side - NEW A - Arm or leg weakness or numbness on one side - NEW S - Slurred speech or difficulty with word finding - NEW T - Time is BRAIN! Call 911 as soon as you recognize these symptoms Diet: Consume a regular diet rich in vegetables and lean protein such as chicken or fish. You should consume in a ratio of approximately 20% fats|40% carbohydrates|40%protein. Vegetables, sweet potatoes, brown rice or quinoa are examples of good carbohydrates. Chips, white bread, cookies and sweets/sugar are examples of bad carbohydrates. Limit your bad carbs, go wild with good carbs. "Life's Simple 7" Guidelines as per [place] [employer] These will help you reclaim your life after surgery and help desk support specialist in your recovery, keeping in mind your restrictions. (1) Get Active. Physical activity can help people lose weight, control high blood pressure and cholesterol, feel emotionally better, and sleep better. (2) Control Cholesterol. Avoid a diet high in saturated fat, trans fat, & cholesterol. Limit whole milk & cream, ice cream, butter, egg yolks, processed meats (like sausage and hot dogs), and fatty meats. Choose healthy foods that are low in saturated fat, trans fat and cholesterol which include: Fruits and vegetables, fiber rich grain products (like whole grain pasta and brown rice), lean meat such as chicken, fish, nuts, seeds, and legumes. (3) Eat Better. Eat small portions. Shop at the grocery with a list and do not stray from it. Tips for a healthy diet include: Limit sodium intake to less than 1500mg daily, avoid prepackaged, processed, and fast foods, choose a diet rich in fruits, vegetables, and whole grain, high fiber foods, and limit saturated & cholesterol in your diet. (4) Manage Blood Pressure. If you have high blood pressure, you should have a cuff at home so that you can check your blood pressure regularly. Be sure you have a good cuff. An arm one is generally better than a wrist one. Bring the cuff to a doctor's appointment to validate that the measurements that your cuff are taking are accurate. Take your blood pressure twice daily when you are sitting down and relaxing. Record the numbers in a log and bring this log with you to your doctors' appointments. (5) Lose Weight if your BMI is above 25. A healthy BMI is between 19-25. To calculate Your BMI, you may use a Standard BMI Calculator on the NIH BMI website: <www.nhlbi.nih.gov/guidelines/obesity/BMI/bmicalc.htm>. Weigh oneself daily. If you are overweight, set a goal to lose weight. A pound a week loss if needed is a good target. (6) Reduce Blood Sugar. Limit foods and liquids with "added sugars." (Added sugars include sucrose, fructose, glucose, maltose, dextrose, high fructose corn syrup, corn syrup, concentrated fruit juice and honey). (7) Stop Smoking. If you smoke, quitting smoking is one of the best things that you can do for your health. Smoking increases your risk of heart attack, stroke, and peripheral vascular disease, which is a build-up of plaque in your arteries. Please discard all the cigarettes and lighters in your house. Have a plan for what you will do when you have the urge to smoke. Direct and second- hand smoke shortens your life as well as the lives of your family, friends and others around you. For your health and the health of those around you, please consider quitting! Proper Bending Body Mechanics: Maintain a wide stance with one foot slightly in front of the other. Keep your back straight. Bend utilizing the strength in your hips and knees. Do not bend at the waist. Maintain the lifted object at your waist-level close to your body. Avoid lifting weight that causes immediately pain or pain anywhere in the body afterwards. Smoking/Nicotine If there was ever one thing that you could do to increase your overall health, decrease your risk of cardiovascular problems by about 39% the second you make the choice, it is to STOP SMOKING. Your body's most instant gratification is the second you stop smoking. We have all heard the studies, read the articles but it is true, smoking is extremely bad for your overall health, and moreover it is detrimental to your bone health. Nicotine, IN ANY FORM, kills bone cells, prevents your body from healing fractures, and significantly prolongs healing after surgery. In spine surgery specifically, it increases your risk of not healing your bones to create a fusion and increases your risk of having a revision surgery due to this up to 60%. I know it is hard. I know it feels impossible. But there are ways. Take control of your life. We are here to help you through it. And when you are ready, ask us and we can direct you to help if you desire. Use the START Plan to Quit Smoking (please visit the Helpguide.org website listed below for more information): S = Set a quit date. Choose a date within the next 2 weeks, so you have enough time to prepare without losing your motivation to quit. If you mainly smoke at work, quit on the weekend, so you have a few days to adjust to the change. T = Tell family, friends, and co-workers that you plan to quit. Let your friends and family in on your plan to quit smoking and tell them you need their support and encouragement to stop. Look for a quit malgorzata who wants to stop smoking as well. You can help each other get through the rough times. A = Anticipate and plan for the challenges you'll face while quitting. Most people who begin smoking again do so within the first 3 months. You can help yourself make it through by preparing ahead for common challenges, such as nicotine withdrawal and cigarette cravings. R = Remove cigarettes and other tobacco products from your home, car, and work. Throw away all your cigarettes (no emergency pack!), lighters, ashtrays, and matches. Wash your clothes and freshen up anything that smells like smoke. Shampoo your car, clean your drapes and carpet, and steam your furniture. T = Talk to your doctor about getting help to quit. Your doctor can prescribe medication to help with withdrawal and suggest other alternatives. If you can't see a doctor, you can get many products over the counter at your local pharmacy or grocery store, including the nicotine patch, nicotine lozenges, and nicotine gum. Resources for Quitting Smoking: <https://www.[place].gov/documents/[facility]/Quit_Tobacco_Resources_for_patients_313 480_7.pdf> Supplementation: Take recommended dosages of Vitamin D and Calcium to help fortify your bones and help them to heal. See your health maintenance packet for dosages and recommended levels. DVT/VTE prophylaxis: You will be given compression stockings from the hospital. Wear these daily for the first two weeks after surgery. You may take them off at night. You may be prescribed a medication to help thin your blood. Take this as directed. If you are not prescribed this medication, early and frequent ambulation has been shown to be the best prophylaxis to deep vein thrombosis and sequelae related to this event. Discharge Disposition: HOME SELF-CARE
--- NOTE | 2023-05-06 16:00 | P.PN ---
Subjective Progress Note Date: 05/06/23 Hospital course: Patient is a very pleasant 67-year-old female with a past medical history of hypertension, hypothyroidism, fibromyalgia, migraines, and chronic neck pain with radiculopathy and paresthesias of upper extremities. She is currently admitted under orthospine surgery team and underwent C5 through C7 cervical discectomy and fusion with Dr. Martinez on 05/05/23. We were consulted for medical management throughout patient's hospitalization. Physical exam: Patient seen and fully evaluated at bedside this morning. She reports controlled postoperative pain and denies having any numbness/tingling/weakness in her extremities. Patient reports she did have some postoperative nausea and vomiting but states it has completely resolved at this time and currently denies having any complaints. Patient states that she looks forward to going home today. Vital signs reviewed and stable. General: Nontoxic, no distress and appears stated age. Derm: Skin warm and dry, normal coloration for ethnicity. Head: Atraumatic, normocephalic and symmetric. Hard c-collar and PEGGY drain in place. Eyes: EOMs intact, no lid lag, and anicteric sclera Mouth: no lip lesions, mucus membranes moist Cardiovascular: regular rate and rhythm with normal S1S2, no murmur, positive posterior tibial pulses bilaterally, and cap refill < 2 seconds. Lungs: Respirations even, regular, and unlabored on room air. Lungs CTA bilaterally, no rhonchi, no rales, no wheezing, and no accessory muscle usage. Abdominal: soft, nontender to palpation, no guarding, no appreciable organomegaly Ext: ROM intact. No gross muscle atrophy, no edema, no contractures Neuro: Speech clear, face symmetrical and CN II-XII grossly intact with no noted focal neuro deficits Psych: Alert and oriented to person, place, time, and situation. Appropriate and pleasant affect. Assessment and Plan of Care: Status post cervical discectomy and fusion -Management per primary admitting orthospine surgery team including pain management, DVT prophylaxis, incision and drain care, as well as PT/OT. -Continue neuro checks every 4 hours. Hypertension -Vital signs stable in current blood pressure medication regimen. Patient to continue atenolol 50 mg daily. Hypothyroidism -Patient to continue daily medication regimen with levothyroxine 88 g daily. Data review: Morning labs reviewed and stable. CBC revealing Postoperative hemoglobin stable at 12.6 And BMP unremarkable with slightly elevated glucose of 138. Preoperative hemoglobin was 13.0. Vital signs reviewed and stable with blood pressure 120/74, heart rate 68, respiratory rate 16, temp 98.2F, SpO2 of 98% on room air. From a medical standpoint, patient is stable for discharge once cleared by primary admitting orthospine surgery team. Thank you for allowing us to participate in the care of this pleasant patient. Do not hesitate to contact us with questions. Someone can be reached from the [facility] hospitalist group all hours of the day at [phone] or via [email or web address]. Patient was seen independently by Nurse Pracitioner. This document was prepared using eFolder dictation software. Please allow for errors in solar sales advisor, while rare they do occur. Demarco Gregory NP rendered care for this patient independently, reviewed the findings and plan as documented in the note above. I did not physically speak with or examine the patient on this date. Objective - Vital Signs Vital signs: Vital Signs Temp 98.2 F 05/06/23 07:32 Pulse 68 05/06/23 07:32 Resp 16 05/06/23 07:32 BP 120/74 05/06/23 07:32 Pulse Ox 98 05/06/23 07:32 FiO2 Intake & Output 05/05/23 05/06/23 05/06/23 18:59 06:59 18:59 Intake Total 1250 Output Total 25 529 Balance 1225 -529 Weight 64.5 kg Intake: IV 1250 Output: Post Void Residual 529 Estimated Blood Loss 25 - Labs CBC & Chem 7: 05/06/23 05:49 05/06/23 05:49
[2023-05-07] MEDS ORDERED: PANTOPRAZOLE 40 MG TABLET PO SCH (07:30)
== END 2023-05-06 13:47 | disposition home or self-care (01) ==
LOC: OR 11:06 → 4SSUR 16:01 → OR 05-06 08:58
PROVIDERS: ADMIT Orthopaedic Surgery; ATTEND Orthopaedic Surgery
DX: M48.02 Spinal stenosis, cervical region (principal); M47.22 Other spondylosis with radiculopathy, cervical region; M25.78 Osteophyte, vertebrae; M79.7 Fibromyalgia; M81.0 Age-related osteoporosis without current pathological fracture; I10 Essential (primary) hypertension; K21.9 Gastro-esophageal reflux disease without esophagitis; K76.0 Fatty (change of) liver, not elsewhere classified; E03.9 Hypothyroidism, unspecified; L71.9 Rosacea, unspecified; N30.10 Interstitial cystitis (chronic) without hematuria; F41.9 Anxiety disorder, unspecified; F32.A Depression, unspecified; Z90.49 Acquired absence of other specified parts of digestive tract; Z90.710 Acquired absence of both cervix and uterus; Z96.652 Presence of left artificial knee joint; Z80.8 Family history of malignant neoplasm of other organs or systems; Z80.0 Family history of malignant neoplasm of digestive organs; Z80.3 Family history of malignant neoplasm of breast; Z79.890 Hormone replacement therapy; Z79.899 Other long term (current) drug therapy; Z88.2 Allergy status to sulfonamides; Z88.8 Allergy status to other drugs, medicaments and biological substances
CPT/HCPCS: 97161; 86900; 86901; 80048; 85025; 86850; 72040; 72125; 22551; 22552; 22853 ×2; 20930; 20936; G0378; C1713; J2250; J0330; J2765; J0690; J2405; J3010; J1170 ×3; J2704; J2001; J2371

== ENCOUNTER → 2023-08-03 | Outpatient (CLI) | payer MEDICARE ==
--- NOTE | 2023-08-04 12:02 | MM ---
Reason for Exam: Screening (asymptomatic). Last screening mammogram was performed 12 month(s) ago. Patient History: Menarche at age 13. First Full-Term at age 18. Left ovary removed at age 28. Right ovary removed at age 28. Hysterectomy at age 28. Postmenopausal. Mother had breast cancer, age 50. Risk Values: Jaqueline 5 year model risk: 3.2%. NCI Lifetime model risk: 10.1%. Prior Study Comparison: 09/08/2018 Screening Mammogram, [facility]. 07/17/2020 Bilateral Screening Mammogram, [facility]. 07/18/2022 Bilateral MG 3D screening mammo w/cad, [facility]. Tissue Density: There are scattered fibroglandular densities. Findings: Analyzed By CAD. There is no suspicious group of microcalcifications or new suspicious mass in either breast. Overall Assessment: Benign, BI-RAD 2 Management: Screening Mammogram of both breasts in 1 year. . Patient should continue monthly self-breast exams. A clinical breast exam by your physician is recommended on an annual basis. This exam should not preclude additional follow-up of suspicious palpable abnormalities. Note on Jaqueline scores and lifetime risk: 1. A Jaqueline score greater than 3% is considered moderate risk. If this is the case, consider specialist referral to assess eligibility for a risk reducing agent. 2. If overall lifetime risk for the development of breast cancer is 20% or higher, the patient may qualify for future screening with alternating mammogram and breast MRI. Electronically signed and approved by: Jose Horan M.D. Radiologis
== END | disposition home or self-care (01) ==
LOC: RADMAMWWP 15:28
PROVIDERS: ATTEND Family Medicine
DX: Z12.31 Encounter for screening mammogram for malignant neoplasm of breast (principal); Z78.0 Asymptomatic menopausal state; Z80.3 Family history of malignant neoplasm of breast
CPT/HCPCS: 77063; 77067

== ENCOUNTER → 2023-09-29 | Outpatient (CLI) | payer MEDICARE ==
--- NOTE | 2023-10-05 23:10 | CT ---
EXAMINATION TYPE: CT shoulder RT wo con CT DLP: 432 mGycm, Automated exposure control for dose reduction was used. DATE OF EXAM: 09/29/2023 9:45 AM COMPARISON: Shoulder x-rays 09/23/2013 CLINICAL INDICATION:Female, 68 years old with history of M75.121 Rt shoulder tear; PHH, Rt shoulder t ear TECHNIQUE: Axial images were obtained of the right shoulder without contrast . Additional coronal an d sagittal reformatted images and soft tissue and bone window were obtained for review. 3-D reconstru ction was created on a separate workstation. Contrast used: mL of , None Oral contrast used: None FINDINGS: Bones: Right humeral head arthroplasty in place without evidence of failure. Moderate background dege nerative changes of the glenoid fossa. Linear radiolucencies in the glenoid, one of which contains a short linear metallic density, may be related to mostly radiolucent prosthesis or previous prosthesis of the glenoid. There are dystrophic soft tissue calcifications seen inferior to the glenohumeral ryan int. Humeral head appears high riding, there is narrowing of the subacromial space to 5.8 mm, as well as moderate hypertrophic degenerative change of the AC joint, with some of this extending subacromia l and further narrowing the subacromial space. No evidence of acute fracture, dislocation, or osseous destructive lesion. There are partially seen anterior fusion changes in the lower cervical spine. Soft tissues: Some limitation by beam hardening artifact from the prosthesis, but the soft tissues ab out the shoulder appear grossly unremarkable. However if of concern MRI could be considered for furth er evaluation. Other: Mild reticular scarring at the right lung apex. A small benign-appearing nodular density in th e right upper lobe of the lung measuring 3.3 mm. IMPRESSION: 1. Right humeral head arthroplasty without evidence of complication. 2. Moderate background degenerative changes of the glenoid fossa. Mostly radiolucent prosthesis or p revious prosthesis of the glenoid. 3. Dystrophic soft tissue calcifications inferior to the glenohumeral joint. 4. Humeral head appears high riding, with narrowing of the subacromial space further exacerbated by moderate hypertrophic degenerative change of the AC joint. Chronic rotator cuff disease is suspected. 5. No acute bony abnormality.
== END | disposition home or self-care (01) ==
LOC: RADCTMAIN 09:12
PROVIDERS: ATTEND Orthopaedic Surgery
DX: M75.121 Complete rotator cuff tear or rupture of right shoulder, not specified as traumatic (principal); M61.9 Calcification and ossification of muscle, unspecified; Z96.611 Presence of right artificial shoulder joint

== ENCOUNTER → 2023-10-07 | Outpatient (CLI) | payer MEDICARE ==
[2023-10-07 15:02] LABS: Basophils # (A) 0.04 X 10*3/uL (0.00-0.10); Basophils % (A) 0.7 %; Eosinophils # (A) 0.15 X 10*3/uL (0.04-0.35); Eosinophils % (A) 2.5 %; HCT 37.4 % (37.2-46.3); HGB 12.1 g/dL (12.0-15.0); Lymphocytes # (A) 1.48 X 10*3/uL (0.90-5.00); MCH 31.4 pg (27.0-32.0); MCHC 32.4 g/dL (32.0-37.0); MCV 97.1 FL (80.0-97.0); Mean Platelet Volume 10.2 FL (9.5-12.2); Monocytes # (A) 0.55 X 10*3/uL (0.20-1.00); Monocytes % (A) 9.3 %; NRBC Per 100 WBC 0 X 10*3/uL (0.00-0.01); Neutrophils # (A) 3.67 X 10*3/uL (1.80-7.70); Neutrophils % (A) 62.2 %; Platelet Count 235 X 10*3/uL (140-440); RBC 3.85 X 10*6/uL (4.10-5.20); WBC 5.91 X 10*3/uL (4.50-10.00)
[2023-10-07 15:53] LABS: Erythrocyte Sedimentation Rate 13 mm/Hr (0-30)
== END | disposition home or self-care (01) ==
LOC: LABWHC1 10:12
PROVIDERS: ATTEND Orthopaedic Surgery
DX: M25.50 Pain in unspecified joint (principal)
CPT/HCPCS: 36415; 85025; 85652; 86140

== ENCOUNTER → 2023-10-19 | Outpatient (CLI) | payer MEDICARE ==
[2023-10-19 09:53] LABS: INR 0.9 (<1.2); Prothrombin Time 10.5 sec (10.0-12.5)
[2023-10-19 15:07] LABS: Basophils # (A) 0.05 X 10*3/uL (0.00-0.10); Basophils % (A) 0.8 %; Eosinophils # (A) 0.18 X 10*3/uL (0.04-0.35); Eosinophils % (A) 2.9 %; HCT 41.7 % (37.2-46.3); HGB 13.7 g/dL (12.0-15.0); Lymphocytes # (A) 1.28 X 10*3/uL (0.90-5.00); Lymphocytes % (A) 20.3 %; MCH 31.2 pg (27.0-32.0); MCHC 32.9 g/dL (32.0-37.0); Mean Platelet Volume 10.2 FL (9.5-12.2); Monocytes # (A) 0.53 X 10*3/uL (0.20-1.00); Monocytes % (A) 8.4 %; NRBC Per 100 WBC 0 X 10*3/uL (0.00-0.01); Neutrophils # (A) 4.23 X 10*3/uL (1.80-7.70); Neutrophils % (A) 67.3 %; Platelet Count 332 X 10*3/uL (140-440); RBC 4.39 X 10*6/uL (4.10-5.20); RDW 13.2 % (11.5-14.5); WBC 6.29 X 10*3/uL (4.50-10.00)
[2023-10-19 15:36] LABS: BUN/Creat Ratio 20.12 Ratio (12.00-20.00); Blood Urea Nitrogen 16.1 mg/dL (9.0-27.0); Chloride 102 mmol/L (96-109); Chol/HDL Ratio 2.85 Ratio; Glucose 97 mg/dL (70-110); LDL Cholesterol,Calculated 162.2 mg/dL (0.0-131.0); Sodium 141 mmol/L (135-145)
[2023-10-19 15:37] LABS: ALT 36 U/L (8-44); AST 29 U/L (13-35); Albumin 4.6 g/dL (3.8-4.9); Albumin/Globulin Ratio 2.09 Ratio (1.60-3.17); Alkaline Phosphatase 163 U/L (41-126); Calcium 10.3 mg/dL (8.7-10.3); Carbon Dioxide 27.4 mmol/L (21.6-31.8); Globulin 2.2 g/dL (1.6-3.3); T4, Free (Free Thyroxine) 1.12 ng/dL (0.80-1.80); Total Bilirubin 0.3 mg/dL (0.3-1.2); Total Protein 6.8 g/dL (6.2-8.2)
== END | disposition home or self-care (01) ==
LOC: LABPAT 08:35
PROVIDERS: ATTEND Orthopaedic Surgery
DX: Z01.812 Encounter for preprocedural laboratory examination (principal); Z22.322 Carrier or suspected carrier of Methicillin resistant Staphylococcus aureus; I10 Essential (primary) hypertension; E78.5 Hyperlipidemia, unspecified; E03.9 Hypothyroidism, unspecified; K21.9 Gastro-esophageal reflux disease without esophagitis; K76.0 Fatty (change of) liver, not elsewhere classified
CPT/HCPCS: 80053; 80061; 82306; 82607; 82746; 83036; 84439; 84443; 85025; 85610; 87070

== ENCOUNTER 2023-11-17 05:37 | Inpatient (IN) | payer MEDICARE ==
[2023-11-09 16:37] VITALS: BMI 26.4
--- NOTE | 2023-11-16 08:35 | P.HPOR ---
History of Present Illness H&P Date: 11/16/23 Chief Complaint: Right shoulder pain The patient is a 68-year-old [id number] retired female who presents with progressive right shoulder pain for the past 6 months. Previously she had undergone right total shoulder arthroplasty in October 2019. Initially she did quite well. She's having increasing pain with overhead use and at night. She's tried conservative measures without much resolution. She denies any fevers or chills. She denies any traumatic event. Review of Systems Per HPI Past Medical History Past Medical History: Fibromyalgia, GERD/Reflux, Hearing Disorder / Deafness, Hypertension, Liver Disease, Osteoarthritis (OA), Skin Disorder, Thyroid Disorder Additional Past Medical History / Comment(s): Diverticulitis, migraines, neuropathy - bilateral feet, rosacea face and scalp, non alcoholic fatty liver, interstitial cystitis, neck pain, bilateral hearing aid use. History of Any Multi-Drug Resistant Organisms: None Reported Past Surgical History: Cholecystectomy, Heart Catheterization, Hernia Repair, Hysterectomy, Joint Replacement, Orthopedic Surgery, Tonsillectomy Additional Past Surgical History / Comment(s): Left knee arthroscopy X2, left knee replacement, bilateral carpal tunnel surgery, bilateral feet bunionectomy, right shoulder arthroscopy, right inguinal hernia repair, ovaries removed, right shoulder repair and replacement, neck surgery 05/2023. Past Anesthesia/Blood Transfusion Reactions: No Reported Reaction Additional Past Anesthesia/Blood Transfusion Reaction / Comment(s): Hx blood transfusion X with no issues. Past Psychological History: Anxiety, Depression Smoking Status: Never smoker Past Alcohol Use History: None Reported Past Drug Use History: None Reported Additional Drug Use History / Comment(s): Hx cbd use, no longer using. - Past Family History Father Family Medical History: Cancer Additional Family Medical History / Comment(s): Melanoma. Mother Family Medical History: Cancer Additional Family Medical History / Comment(s): Breast and colon cancer. Son(s) Family Medical History: Cancer Sister(s) Family Medical History: Cancer Medications and Allergies Home Medications Medication Instructions Recorded Confirmed Type Amitriptyline HCl [Elavil] 100 mg PO PC-SUPPER 10/14/18 11/09/23 History Butalb/APAP/Caff 50-325-40Mg 1 - 2 tab PO Q4H PRN 10/14/18 11/09/23 History [Fioricet 50-325-40] Cholecalciferol (Vitamin D3) 4,000 unit PO DAILY 10/14/18 11/09/23 History [Vitamin D3] atenoloL [Tenormin] 50 mg PO PC-SUPPER 10/14/18 11/09/23 History Levothyroxine Sodium [Synthroid] 88 mcg PO QAM 10/31/19 11/09/23 History QUEtiapine XR [SEROquel XR] 450 mg PO HS 10/31/19 11/09/23 History Sertraline [Zoloft] 100 mg PO QAM 10/31/19 11/09/23 History Omeprazole 40 mg PO PC-LUNCH 01/08/23 11/09/23 History Clindamycin Phosphate [Cleocin T 1 applic TOPICAL BID 02/02/23 11/09/23 History 1%] Ivermectin [Ivermectin 1%] 1 applic TOPICAL DAILY 02/02/23 11/09/23 History ALPRAZolam [Xanax] 0.25 mg PO DAILY PRN 04/28/23 11/09/23 History Amoxicillin 500 mg PO DIRECTED PRN 04/28/23 11/09/23 History Nystatin 100,000 Unit/ml Susp 1 dose PO QID 11/09/23 11/09/23 History [Mycostatin Oral Susp] Rosuvastatin Calcium 5 mg PO DAILY 11/09/23 11/09/23 History Allergies Allergy/AdvReac Type Severity Reaction Status Date / Time Sulfa (Sulfonamide Allergy Severe Rash/Hives Verified 05/05/23 11:44 Antibiotics) hydromorphone [From Dilaudid] Allergy Nausea & Verified 11/09/23 15:55 Vomiting duloxetine [From Cymbalta] AdvReac Unknown Verified 05/05/23 12:03 gabapentin AdvReac Unknown Verified 05/05/23 12:03 pregabalin [From Lyrica] AdvReac Unknown Verified 05/05/23 12:03 Physical Examination - Shoulder right Previous incision location: Deltopectoral incision well-healed without erythema or warmth Tenderness with palpation: anterior Pain: with abduction, with forward flexion ROM: forward flexion: 60 degrees (Actively, 130 passively) ROM: internal rotation: lower lumbar ROM: external rotation: 50 degrees Crepitus with motion: Yes Strength: abduction: 4/5 Strength: forward flexion: 5/5 Tests: internal impingement tests: positive, external impingment tests: positive Results The patient is a well-developed well-nourished female approximately 5 foot 1, 140 pounds of mesomorphic habitus. HEENT exam is nonfocal, neck range of motion is limited however Spurling's is negative. She's tender about the right shoulder anterior subacromial space and anterior glenohumeral joint. She has moderate crepitus. Segovia, and Neer sign are positive. Her distal neurovascular appears intact in the right upper extremity. - Diagnostic results Shoulder x-ray: image reviewed (Reviews of the right shoulder obtained in the office show a previous total shoulder arthroplasty with diminished subacromial space. There is some lucency about the glenoid component.) Assessment and Plan Assessment: Painful right total shoulder arthroplasty likely rotator cuff failure/possible aseptic loosening History of cervical fusion Plan: I talked to the patient at length regarding her condition along with treatment options. At this point she is quite symmetric having both pain and weakness d espite attempted conservative measures. After thorough discussion she opted to proceed with surgery. We will plan to proceed with revision right total shoulder arthroplasty converting to a reverse total shoulder arthroplasty. Risks and benefits were discussed at length in layman's terms.
[~2023-11-17 05:37] MED LIST changes: -ACETAMINOPHEN TAB 500 MG TAB PO PRN; -GABAPENTIN 300 MG CAP PO PRN; -ONDANSETRON 4 MG/2 ML VIAL IVP PRN
[2023-11-17] MEDS ORDERED: LIDOCAINE 1% (10MG/ML) FOR IV START INTRADERMA PRN (05:53)
[2023-11-17] MEDS: LACTATED RINGERS 1,000 ML IV SCH (06:27)
[2023-11-17] MEDS: MELOXICAM 7.5 MG TAB PO PRN (06:35)
[2023-11-17] MEDS: ACETAMINOPHEN TAB 500 MG TAB PO PRN (06:35)
[2023-11-17] MEDS: ONDANSETRON 4 MG/2 ML VIAL IVP ONE (06:36)
[2023-11-17] MEDS: fentaNYL (PF) 50 MCG/ML 2 ML AMP IVP ONE (06:58)
[2023-11-17] MEDS: MIDAZOLAM 2 MG/2 ML VIAL IVP ONE (06:58)
[2023-11-17] MEDS ORDERED: fentaNYL (PF) 50 MCG/ML 2 ML AMP IV PRN (07:00)
[2023-11-17] MEDS: ceFAZolin 1,000 MG in SODIUM CHLORIDE 0.9% 1,000 ML IRRIGATION ONE (08:10)
[2023-11-17] MEDS ORDERED: MORPHINE SULFATE 2 MG/ML SYRINGE IV PRN (08:20)
[2023-11-17] MEDS ORDERED: ONDANSETRON 4 MG/2 ML VIAL IVP PRN (08:20)
[2023-11-17] MEDS ORDERED: SENNOSIDES-DOCUSATE SODIUM 1 EACH TAB PO PRN (08:20)
[2023-11-17] MEDS ORDERED: HYDROcodone/APAP 7.5-325MG 1 EACH TAB PO PRN (08:24)
[2023-11-17] MEDS: LACTATED RINGERS 1,000 ML IV ONE (10:21)
--- NOTE | 2023-11-17 10:54 | P.OP ---
Date of Procedure: 11/17/23 Preoperative Diagnosis: Painful right total shoulder arthroplasty Postoperative Diagnosis: Same in addition to aseptic loosening glenoid component and rotator cuff failure Procedure(s) Performed: Revision right reverse total shoulder arthroplasty including glenoid and humeral components Implants: Depuy Delta Xtend size 1 proximal humeral body, 36+3 articular surface, 36 standard glenosphere with +10 baseplate. Anest[facility]: [facility], [facility] Surgeon: David Montes De Oca Timber Faller #1: Sudhakar Obrien Estimated Blood Loss (ml): 100 Pathology: none sent Condition: stable Disposition: PACU Indications for Procedure: The patient is a 68-year-old female who 4 years ago underwent right total shoulder arthroplasty presented with increasing pain over the past 6 months. He discussion of the risks and benefits of operative intervention versus continued conservative measures was made with the patient. She opted to proceed with surgery. Operative risks to include infection, neurovascular injury, fracture, possible component loosening, possible component failure/instability and need for subsequent procedures was discussed. Informed consent was obtained. Operative Findings: As below Description of Procedure: The patient was brought to the operating room, and after induction of general anesthesia was placed in a beachchair position. The bony prominences were appropriately padded. I examined the right shoulder. There was moderate lack of passive forward elevation and external rotation. The right upper extremity was prepped and draped in normal fashion. The bony outlines the coracoid process, distal clavicle, and acromion were outlined with a skin marker. The previous deltopectoral incision was utilized lateral to the coracoid process. Skin was incised sharply. Subcutaneous tissues were divided bluntly. Electrocautery was used for hemostasis. The deltopectoral was bluntly developed. Subdeltoid adhesions were then released. The self-retaining retractor was placed. The conjoined tendon was retracted medially and the deltoid laterally. Pseudocapsule was excised. The subscapularis was released off the lesser tuberosity sharply. The head was then exposed. The shoulder was dislocated. The humeral head was then extracted. The metaphyseal component was removed after breaking the bone implant interface with sharp osteotomes. Attention was then paid towards preparing the glenoid. An anterior and posterior retractors placed. The glenoid component was exposed. This is easily removed with a curved osteotome as there was significant loosening. There did not appear to be significant bone loss involving the glenoid vault. A guidepin was placed in the previous central peg hole. I planned on utilizing a +10 baseplate. The reamer was used down to a bleeding bony surface. The +10 baseplate was inserted with good purchase. Inferior and superior locking screws the appropriate length were placed. Good purchase was obtained. The 36 mm g lenosphere was inserted over a guidewire. This was fully seated. Care was taken to avoid any soft tissue interposition. Attention was then paid towards preparing the proximal humerus. The appropriate metaphyseal guide was placed in 30 of retroversion. A size 1 epiphyseal reamer was utilized. The distal stem appeared well fixed. A trial size 1 epiphyseal component was then placed in 30 of retroversion. Trial reduction was obtained with a 36 mm + 3 articular surface. The shoulder was taken through range of motion. The shoulder was felt to be stable in flexion and extension with internal and external rotation. I felt there was adequate mormonism of soft tissue tension judging off the conjoined tendon. The shoulder was gently dislocated. The trial components were then removed. The final size 1 epiphysis was fully seated. There was good rotational stability. The 36 mm + 3 articular surface was impacted. The shoulder again was gently reduced and taken through range of motion. Again it was felt to be stable in all planes. Pulsatile lavage was utilized. The subscapularis was a attached to the lesser tuberosity with #2 Ethibond suture. The deltopectoral interval was closed with interrupted 2-0 Vicryl sutures. The skin was reapproximated with 3-0 subcuticular Prolene suture. Steri-Strips were applied. A sterile dressing was applied. A sling was placed. The patient was awoken from general anesthesia and transferred to recovery room in good condition. Blood loss was estimated at 100 mL. No complications were incurred. Sponge and needle counts were correct at the end the case. Sudhakar VELOZ assisted during the major components of the case to include exposure, glenoid and humeral preparation, implantation, and closure.
--- NOTE | 2023-11-17 11:16 | XR ---
EXAMINATION TYPE: XR shoulder limited RT DATE OF EXAM: 11/17/2023 COMPARISON: NONE TECHNIQUE: One view submitted HISTORY: Post op FINDINGS: There is a prosthetic right shoulder in near anatomic alignment. There is soft tissue edema and soft tissue emphysema. Underlying pulmonary emphysema chronic interstitial lung disease suspected. CORA castillo arthropathy IMPRESSION: 1. Postoperative change.
--- NOTE | 2023-11-17 12:00 | P.ANPRN ---
Procedure Note - Anesthesia - Nerve Block Performed Right Interscalene Single Time Out Performed: Yes ([id number]) Date of Procedure: 11/17/23 Procedure Start Time: 06:58 Procedure Stop Time: 07:03 Indication: Acute Post-Operative Pain, Requested by Surgeon Specifically requested for management of pain by : David Montes De Oca Sedation Type: Sedate with meaningful contact maintained Preparation: Sterile Prep Position: Supine Catheter: None Needle Types: Pajunk Needle Gauge: 21 Ultrasound used to visualize needle placement: Yes Ultrasound used to observe medication spread: Yes Injectate: 0.5% Ropivacaine (see comment for volume) (30cc) Blood Aspirated: No Pain Paresthesia on Injection Noted: No Resistance on Injection: Normal Image Stored and Saved: Yes Events: Uneventful and Well Tolerated
[2023-11-17] MEDS ORDERED: ALPRAZolam 0.25 MG TAB PO PRN (13:49)
[2023-11-17] MEDS: BUTALB/APAP/CAFF 50-325-40MG TAB PO PRN (15:02)
[2023-11-17] MEDS: NYSTATIN 100,000 UNIT/ML SUSP 500,000 UNIT/5 ML CUP PO SCH (15:07)
[2023-11-17] MEDS: droPERidol 5 MG/2 ML VIAL IVP ONE (15:42)
[2023-11-17] MEDS: atenoloL 50 MG TAB PO SCH (17:16)
[2023-11-17] MEDS: AMITRIPTYLINE HCL 50 MG TAB PO SCH (17:16)
--- NOTE | 2023-11-17 17:35 | P.CONS ---
History of Present Illness - Reason for Consult Consult date: 11/17/23 Medical Management Requesting physician: David Montes De Oca - History of Present Illness History of Presenting Illness: Patient is a very pleasant 68-year-old female with a past medical history of fibromyalgia and chronic pain, hypertension, hypothyroidism, GERD, diverticulosis, migraines, hearing loss with bilateral hearing aid use, anxiety, depression, and osteoarthrosis. She is currently admitted under orthopedic surgery team and is status post revision of right total shoulder arthroplasty including glenoid and humeral components secondary to right shoulder pain and aseptic loosening of glenoid component with rotator cuff failure. Surgical procedure was completed by Dr. Montes De Oca. We have been consulted for medical management throughout patient's hospitalization. Patient seen and fully evaluated at bedside. Right arm in sling. She currently reports a mild headache and her "typical" chronic pain, she otherwise denies having any complaints including dizziness, lightheadedness, changes in vision or hearing, chest pain, palpitations, shortness of breath, nausea, vomiting, or experiencing any numbness/tingling/focal weakness. Review of systems: Pertinent positives and negatives as discussed in HPI, a complete review of systems was performed and all other systems are negative. Physical exam: Vital signs reviewed and stable. General: Nontoxic, no distress and appears stated age. Derm: Skin warm and dry, normal coloration for ethnicity. Head: Atraumatic, normocephalic and symmetric. Eyes: EOMs intact, no lid lag, and anicteric sclera Mouth: no lip lesions, mucus membranes moist Cardiovascular: regular rate and rhythm with normal S1S2, no murmur, positive posterior tibial pulses bilaterally, and cap refill < 2 seconds. Lungs: Respirations even, regular, and unlabored on room air. Lungs CTA bilaterally, no rhonchi, no rales, no wheezing, and no accessory muscle usage. Abdominal: soft, nontender to palpation, no guarding, no appreciable org anomegaly Ext: No gross muscle atrophy, no edema, no contractures. Movement and sensation intact. Right arm in sling. Postoperative dressing in place. Neuro: Speech clear, face symmetrical and CN II-XII grossly intact with no noted focal neuro deficits Psych: Alert and oriented to person, place, time, and situation. Appropriate and pleasant affect. Assessment and Plan of Care: Aseptic loosening of right glenoid component with rotator cuff failure Status post right total shoulder arthroplasty with glenoid and humeral components Management per primary admitting orthopedic surgery team including DVT prophylaxis, pain management, wound/dressing management, weightbearing of right arm, and PT/OT. DVT prophylaxis currently with aspirin 325 mg daily. Postoperative headache Fibromyalgia with chronic pain and frequent migraines Symptomatic care and pain management and continue with home medication regimen, Fioricet 50/325/40 mg every 4 hours as needed for headache. Hypertension Continue daily medication regimen with atenolol 50 mg daily. Hyperlipidemia Continue daily medication regimen with atorvastatin 10 mg daily. Hypothyroidism Continue daily medication regimen with levothyroxine 88 mcg daily. GERD Continue Protonix 40 mg daily. Anxiety and depression Patient to continue daily medication regimen with Xanax 0.25 mg daily as needed for anxiety, amitriptyline 100 mg daily, Seroquel 225 mg twice daily, and sertraline 100 mg daily. Data reviewed: Preoperative labs completed 10/19/2023 were reviewed CBC showed hemoglobin of 13.7 and platelet count of 332. Vital signs reviewed and stable. Blood pressure 126/77, heart rate 96, respiratory rate 16, temp 97.9 F, and SpO2 of 97% on room air. Orders placed for morning CBC, BMP, and magnesium. Will follow-up on these results and place additional orders as indicated based upon these findings. Thank you for allowing us to participate in the care of this pleasant patient. Do not hesitate to contact us with questions. Someone can be reached from the [facility] hospitalist group all hours of the day at [phone] or via perfect serve. Patient was seen independently by Nurse Practitioner. This document was prepared using [employer] dictation software. Please allow for errors in ventilating equipment installer while rare they do occur Demarco Gregory NP rendered care for this patient independently, reviewed the findings and plan as documented in the note above. I did not physically speak with or examine the patient on this date. Past Medical History Past Medical History: Fibromyalgia, GERD/Reflux, Hearing Disorder / Deafness, Hypertension, Liver Disease, Osteoarthritis (OA), Skin Disorder, Thyroid Disorder Additional Past Medical History / Comment(s): Diverticulitis, migraines, neuropathy - bilateral feet, rosacea face and scalp, non alcoholic fatty liver, interstitial cystitis, neck pain, bilateral hearing aid use. History of Any Multi-Drug Resistant Organisms: None Reported Past Surgical History: Cholecystectomy, Heart Catheterization, Hernia Repair, Hysterectomy, Joint Replacement, Orthopedic Surgery, Tonsillectomy Additional Past Surgical History / Comment(s): Left knee arthroscopy X2, left knee replacement, bilateral carpal tunnel surgery, bilateral feet bunionectomy, right shoulder arthroscopy, right inguinal hernia repair, ovaries removed, right shoulder repair and replacement, neck surgery 05/2023. Past Anesthesia/Blood Transfusion Reactions: No Reported Reaction Additional Past Anesthesia/Blood Transfusion Reaction / Comm: Hx blood transfusion X with no issues. Past Psychological History: Anxiety, Depression Smoking Status: Never smoker Past Alcohol Use History: None Reported Past Drug Use History: None Reported Additional Drug Use History / Comment(s): Hx cbd use, no longer using. - Past Family History Father Family Medical History: Cancer Additional Family Medical History / Comment(s): Melanoma. Mother Family Medical History: Cancer Additional Family Medical History / Comment(s): Breast and colon cancer. Son(s) Family Medical History: Cancer Sister(s) Family Medical History: Cancer Medications and Allergies Home Medications Medication Instructions Recorded Confirmed Type Amitriptyline HCl [Elavil] 100 mg PO PC-SUPPER 10/14/18 11/09/23 History Butalb/APAP/Caff 50-325-40Mg 1 - 2 tab PO Q4H PRN 10/14/18 11/09/23 History [Fioricet 50-325-40] Cholecalciferol (Vitamin D3) 4,000 unit PO DAILY 10/14/18 11/09/23 History [Vitamin D3] atenoloL [Tenormin] 50 mg PO PC-SUPPER 10/14/18 11/09/23 History Levothyroxine Sodium [Synthroid] 88 mcg PO QAM 10/31/19 11/09/23 History QUEtiapine XR [SEROquel XR] 450 mg PO HS 10/31/19 11/09/23 History Sertraline [Zoloft] 100 mg PO QAM 10/31/19 11/09/23 History Omeprazole 40 mg PO PC-LUNCH 01/08/23 11/09/23 History Clindamycin Phosphate [Cleocin T 1 applic TOPICAL BID 02/02/23 11/09/23 History 1%] Ivermectin [Ivermectin 1%] 1 applic TOPICAL DAILY 02/02/23 11/09/23 History ALPRAZolam [Xanax] 0.25 mg PO DAILY PRN 04/28/23 11/09/23 History Amoxicillin 500 mg PO DIRECTED PRN 04/28/23 11/09/23 History Nystatin 100,000 Unit/ml Susp 1 dose PO QID 11/09/23 11/09/23 History [Mycostatin Oral Susp] Rosuvastatin Calcium 5 mg PO DAILY 11/09/23 11/09/23 History Aspirin 325 mg PO DAILY #30 tab 11/18/23 Rx HYDROcodone/APAP 10-325MG [Street 1 tab PO Q6HR PRN #28 tab 11/18/23 Rx 10-325] Sennosides/Docusate Sodium [Senna 1 each PO DAILY #20 capsule 11/18/23 Rx Plus 8.6-50 mg Softgel] Allergies Allergy/AdvReac Type Severity Reaction Status Date / Time Sulfa (Sulfonamide Allergy Severe Rash/Hives Verified 11/17/23 06:08 Antibiotics) hydromorphone [From Dilaudid] Allergy Nausea & Verified 11/17/23 06:08 Vomiting duloxetine [From Cymbalta] AdvReac Unknown Verified 11/17/23 06:08 gabapentin AdvReac Unknown Verified 11/17/23 06:08 pregabalin [From Lyrica] AdvReac Unknown Verified 11/17/23 06:08 Physical Exam Vitals: Vital Signs Temp Pulse Resp BP Pulse Ox 11/17/23 13:29 86 18 106/58 97 11/17/23 13:01 84 16 103/56 97 11/17/23 12:31 82 16 101/56 96 11/17/23 12:01 78 20 105/59 96 11/17/23 11:31 75 18 109/62 96 11/17/23 11:16 82 18 109/57 90 L 11/17/23 11:01 84 16 133/66 95 11/17/23 10:46 97.9 F 116 H 14 138/48 96 11/17/23 07:03 77 16 129/73 98 11/17/23 06:18 97.4 F L 83 16 139/67 98 Intake and Output 11/16/23 11/17/23 11/17/23 22:59 06:59 14:59 Intake Total 200 901 Output Total 100 Balance 200 801 Intake: IV 200 901 Output: Estimated Blood Loss 100 Other: Weight 62.8 kg Results CBC & Chem 7: 11/18/23 07:33 11/18/23 07:33
[2023-11-17] MEDS: HYDROcodone/APAP 10-325MG 1 EACH TAB PO PRN (18:14)
[2023-11-17] MEDS: oxyCODONE-APAP 5-325MG 1 EACH TAB PO PRN (20:23)
[2023-11-17] MEDS: QUEtiapine 200 MG TAB PO SCH (20:44)
[2023-11-17] MEDS: QUEtiapine 25 MG TAB PO SCH (20:44)
[2023-11-17] MEDS ORDERED: NON FORMULARY DRUG (Clindamycin Phosphate [Cleocin T 1%] 60 ML Lotion) TOPICAL SCH (21:00)
[2023-11-17] MEDS: MORPHINE SULFATE 4 MG/ML SYRINGE IV PRN (23:18)
[2023-11-18] MEDS: LEVOTHYROXINE 88 MCG TAB PO SCH (06:29)
[2023-11-18 08:06] VITALS: BP 125/77; PULSE 58; RESP 18; TEMP 98
[2023-11-18] MEDS ORDERED: IVERMECTIN TOPICAL SCH (09:00)
[2023-11-18] MEDS: ASPIRIN 325 MG TAB PO SCH (10:09)
[2023-11-18] MEDS: SERTRALINE 100 MG TAB PO SCH (10:15)
[2023-11-18] MEDS: ATORVASTATIN 10 MG TAB PO SCH (10:15)
[2023-11-18] MEDS: CHOLECALCIFEROL 25 MCG (1000 IU) TABLET PO SCH (10:16)
[2023-11-18 11:04] LABS: Basophils # (A) 0.03 X 10*3/uL (0.00-0.10); Basophils % (A) 0.3 %; Eosinophils % (A) 0.9 %; HCT 33.4 % (37.2-46.3); HGB 10.8 g/dL (12.0-15.0); Lymphocytes # (A) 1.26 X 10*3/uL (0.90-5.00); Lymphocytes % (A) 11.3 %; MCHC 32.3 g/dL (32.0-37.0); Mean Platelet Volume 10.9 FL (9.5-12.2); Monocytes # (A) 1.44 X 10*3/uL (0.20-1.00); Monocytes % (A) 12.9 %; NRBC Per 100 WBC 0 X 10*3/uL (0.00-0.01); Neutrophils # (A) 8.33 X 10*3/uL (1.80-7.70); Neutrophils % (A) 74.2 %; Platelet Count 208 X 10*3/uL (140-440); RBC 3.48 X 10*6/uL (4.10-5.20); RDW 13.4 % (11.5-14.5)
--- NOTE | 2023-11-18 11:31 | P.DS ---
Providers Date of admission: 11/17/23 05:37 Expected date of discharge: 11/18/23 Attending physician: David Montes De Oca Consults: 11/17/23 08:20 Consult Physician Routine Consulting Provider: Lilliana Victoria Consult Reason/Comments: medical management Do you want consulting provider notified?: Yes Primary care physician: JADA Snowden Hospital Course: Date of admission: 11/17/2023 Date of discharge: 11/18/2023 Admission diagnosis: Painful right total shoulder arthroplasty Discharge diagnosis: Same Attending physician: Dr. Montes De Oca Surgical procedures: Revision right reverse total shoulder arthroplasty including glenoid and humeral components Brief history: Patient is a 68-year-old female with a history of painful right total shoulder arthroplasty. At this point patient has failed conservative treatment measures and has opted to proceed with a elective and right reverse total shoulder arthroplasty including glenoid and humeral components. Hospital course: Details of patient's surgery can be found in operative report. Patient tolerated the procedure well and was subsequently transported to orthopedic floor. Patient's orthopeidc and medical care was provided daily. Patient had daily laboratory tests performed for evaluation of overall blood counts. Patient had daily physical therapy to include strengthening range of motion as well as education with walker ambulation. Patient was treated with aspirin for their postoperative DVT prophylaxis during their inpatient stay. Patient was noted to have a relatively uneventful postoperative course. Patient reported satisfactory pain control with oral pain medications by postoperative day 1. Patient showed satisfactory progress with physical therapy. Patient moved steadily through the program and had no difficulty meeting the goals by postoperative day 1. Given patient's otherwise satisfactory course and having met physical therapy goals, plan is to discharge patient home on postoperative day 1. Discharge condition/disposition: Patient will be discharged home in stable condition. Discharge medications: Instructions are given on resumption of patient's normal daily medications per primary care recommendation, in addition patient will be prescribed Ruth; senna; aspirin 325 mg daily 30 days. Orthopedic Discharge Instructions: 1. Wound care and infection precautions, keep incision dry and covered while showering, no lotions, creams, moisturizers. No soaking, pools, hot tubs. Do not scrub over incision. 2. Nonweightbearing right upper extremity until follow-up. 3. Ice when necessary. Do not exceed 20 minutes per hour with ice pack. 4. Utilize sling to right upper extremity until seen at first follow up appointment. 5. Pain meds and anticoagulants per prescription. 6. Pain medication has potential to cause constipation. Increase oral fluid and fiber intake. Contact primary care provider if you have not had a bowel movement within 48 hours after discharge. 7. No anti-inflammatory medication until discussed at first post operative visit, this including Motrin, Aleve, Mobic, Diclofenac. 8. Follow up in office at 2 weeks postop with Brennon Lamb PA-C / Sudhakar Obrien PA-C 9. Follow up with your primary care doctor 7-10 days after discharge. 10. Contact [facility] with any questions, . Keep incision clean, dry, intact. While showering, cover incision with Saran wrap. Follow up in office in 2 weeks. Assessment: Painful right total shoulder arthroplasty Procedures: Revision right reverse total shoulder arthroplasty including glenoid and humeral components Patient Condition at Discharge: Good Plan - Discharge Summary Discharge Rx Participant: Yes New Discharge Prescriptions: No Action Butalb/APAP/Caff 50-325-40Mg [Fioricet 50-325-40] 1 - 2 tab PO Q4H PRN PRN Reason: Pain atenoloL [Tenormin] 50 mg PO PC-SUPPER Amitriptyline HCl [Elavil] 100 mg PO PC-SUPPER Cholecalciferol (Vitamin D3) [Vitamin D3] 4,000 unit PO DAILY QUEtiapine XR [SEROquel XR] 450 mg PO HS Sertraline [Zoloft] 100 mg PO QAM Levothyroxine Sodium [Synthroid] 88 mcg PO QAM Ivermectin [Ivermectin 1%] 1 applic TOPICAL DAILY Amoxicillin 500 mg PO DIRECTED PRN PRN Reason: DENTAL WORK Rosuvastatin Calcium 5 mg PO DAILY Nystatin 100,000 Unit/ml Susp [Mycostatin Oral Susp] 1 dose PO QID Omeprazole 40 mg PO PC-LUNCH Clindamycin Phosphate [Cleocin T 1%] 1 applic TOPICAL BID ALPRAZolam [Xanax] 0.25 mg PO DAILY PRN PRN Reason: Anxiety Discharge Medication List Amitriptyline HCl [Elavil] 100 mg PO PC-SUPPER 10/14/18 [History] Butalb/APAP/Caff 50-325-40Mg [Fioricet 50-325-40] 1 - 2 tab PO Q4H PRN 10/14/18 [History] Cholecalciferol (Vitamin D3) [Vitamin D3] 4,000 unit PO DAILY 10/14/18 [History] atenoloL [Tenormin] 50 mg PO PC-SUPPER 10/14/18 [History] Levothyroxine Sodium [Synthroid] 88 mcg PO QAM 10/31/19 [History] QUEtiapine XR [SEROquel XR] 450 mg PO HS 10/31/19 [History] Sertraline [Zoloft] 100 mg PO QAM 10/31/19 [History] Omeprazole 40 mg PO PC-LUNCH 01/08/23 [History] Clindamycin Phosphate [Cleocin T 1%] 1 applic TOPICAL BID 02/02/23 [History] Ivermectin [Ivermectin 1%] 1 applic TOPICAL DAILY 02/02/23 [History] ALPRAZolam [Xanax] 0.25 mg PO DAILY PRN 04/28/23 [History] Amoxicillin 500 mg PO DIRECTED PRN 04/28/23 [History] Nystatin 100,000 Unit/ml Susp [Mycostatin Oral Susp] 1 dose PO QID 11/09/23 [History] Rosuvastatin Calcium 5 mg PO DAILY 11/09/23 [History] Follow up Appointment(s)/Referral(s): Sudhakar Obrien PAC [PHYSICIAN ADMISSIONS NURSE] - 2 Weeks Activity/Diet/Wound Care/Special Instructions: Orthopedic Discharge Instructions: 1. Wound care and infection precautions, keep incision dry and covered while showering, no lotions, creams, moisturizers. No soaking, pools, hot tubs. Do not scrub over incision. 2. Nonweightbearing right upper extremity until follow-up. 3. Ice when necessary. Do not exceed 20 minutes per hour with ice pack. 4. Utilize sling to right upper extremity until seen at first follow up appointment. 5. Pain meds and anticoagulants per prescription. 6. Pain medication has potential to cause constipation. Increase oral fluid and fiber intake. Contact primary care provider if you have not had a bowel movement within 48 hours after discharge. 7. No anti-inflammatory medication until discussed at first post operative visit, this including Motrin, Aleve, Mobic, Diclofenac. 8. Follow up in office at 2 weeks postop with Brennon Lamb PA-C / Sudhakar Obrien PA-C 9. Follow up with your primary care doctor 7-10 days after discharge. 10. Contact [facility] with any questions, . Keep incision clean, dry, intact. While showering, cover incision with Saran wrap. Follow up in office in 2 weeks. Aspirin 325 mg daily 30 days Discharge Disposition: HOME SELF-CARE
--- NOTE | 2023-11-18 11:34 | P.PN ---
Subjective Progress Note Date: 11/18/23 Principal diagnosis: Painful right total shoulder arthroplasty Patient was seen at bedside this morning resting in the semirecumbent position with bulky dressing present over right shoulder and sleeping present on right upper extremity. Patient says she is looking forward to going home later today. Patient says her pain is tolerable with medication. Patient denies any other issues at this time. Patient says she has urinated several times since surgery yesterday. Patient denies chest pain, fever, shortness breath, nausea, vomiting, change in vision, loss of bowel/bladder control. Objective - Vital Signs Vital signs: Vital Signs Temp 98.0 F 11/18/23 06:54 Pulse 58 L 11/18/23 06:54 Resp 18 11/18/23 06:54 BP 125/77 11/18/23 06:54 Pulse Ox 96 11/18/23 06:54 FiO2 Intake & Output 11/17/23 11/18/23 11/18/23 18:59 06:59 18:59 Intake Total 901 Output Total 100 Balance 801 Weight 62.8 kg Intake: IV 901 Output: Estimated Blood Loss 100 Other: # Voids 3 - Exam Right upper extremity: Incision is clean, dry, and intact. The dressing is in good condition. There is minimal soft tissue swelling and ecchymosis surrounding the medial and lateral aspects of the incision. Calf is soft, no tenderness with palpation. Plantar flexion, dorsiflexion, EHL, FHL are intact. Sensory exam to light touch throughout the extremity is intact, dorsal pedis pulses 2+. - Labs CBC & Chem 7: 11/18/23 07:33 Assessment and Plan Assessment: Painful right total shoulder arthroplasty Postoperative day 1 status post: Revision right reverse total shoulder arthroplasty including glenoid and humeral components Plan: 1. Painful right total shoulder arthroplasty - Revision right reverse total shoulder arthroplasty including glenoid and humeral components performed yesterday, today, 11/17/2023. Patient stable at bedside this morning was sling present right upper extremity. Dressing intact over right shoulder. Discharge home today. 2. Appreciate medical management 3. Pain management - [place] 4. DVT prophylaxis - aspirin 325 mg daily 5. GI prophylaxis - senna 6. PT/OT - nonweightbearing right upper extremity. Maintain sling to right upper extremity all times. 7. Encourage incentive spirometer use 8. Discharge planning - home today Time with Patient: Less than 30
[2023-11-18 11:38] LABS: BUN/Creat Ratio 10.29 Ratio (12.00-20.00); Blood Urea Nitrogen 7.2 mg/dL (9.0-27.0); Calcium 9.4 mg/dL (8.7-10.3); Carbon Dioxide 24.1 mmol/L (21.6-31.8); Chloride 101 mmol/L (96-109); Glucose 107 mg/dL (70-110); Magnesium 1.9 mg/dL (1.5-2.4); Potassium 4.3 mmol/L (3.5-5.5); Sodium 139 mmol/L (135-145)
[2023-11-18] MEDS: PANTOPRAZOLE 40 MG TABLET PO SCH (12:56)
== END 2023-11-18 13:19 | disposition home or self-care (01) | DRG 483 ==
LOC: 2ORMAIN 05:37 → EDSTATUS 07:30 → 4SSUR 13:20
PROVIDERS: ADMIT Orthopaedic Surgery; ATTEND Orthopaedic Surgery
PROC: 3E0T3BZ Introduction of Anesthetic Agent into Peripheral Nerves and Plexi, Percutaneous Approach (ICD-10-PCS; 2023-11-17)
PROC: 0RRJ00Z Replacement of Right Shoulder Joint with Reverse Ball and Socket Synthetic Substitute, Open Approach (ICD-10-PCS; principal; 2023-11-17 07:30)
DX: T84.038A Mechanical loosening of other internal prosthetic joint, initial encounter (principal); Y84.8 Other medical procedures as the cause of abnormal reaction of the patient, or of later complication, without mention of misadventure at the time of the procedure; I10 Essential (primary) hypertension; H91.90 Unspecified hearing loss, unspecified ear; M79.7 Fibromyalgia; K21.9 Gastro-esophageal reflux disease without esophagitis; E07.9 Disorder of thyroid, unspecified; K76.89 Other specified diseases of liver; L71.9 Rosacea, unspecified; E03.9 Hypothyroidism, unspecified; Z79.890 Hormone replacement therapy; F41.9 Anxiety disorder, unspecified; F32.A Depression, unspecified; G89.29 Other chronic pain; K76.0 Fatty (change of) liver, not elsewhere classified; G62.9 Polyneuropathy, unspecified; G43.909 Migraine, unspecified, not intractable, without status migrainosus; Z87.19 Personal history of other diseases of the digestive system; Z90.710 Acquired absence of both cervix and uterus; Z97.4 Presence of external hearing-aid; Z98.1 Arthrodesis status; Z96.652 Presence of left artificial knee joint; Z90.49 Acquired absence of other specified parts of digestive tract; Z88.2 Allergy status to sulfonamides; Z88.5 Allergy status to narcotic agent
CPT/HCPCS: 64415; 80048; 83735; 85025

== ENCOUNTER 2024-04-08 13:25 | Day surgery (SDC) | payer MEDICARE ==
[2024-04-07 09:22] VITALS: BMI 26.4
[2024-04-08] MEDS: IV FLUID CONTINUATION 1,000 ML IV ONE (13:46)
[2024-04-08 13:54] VITALS: TEMP 97.8
[2024-04-08] MEDS: LACTATED RINGERS 1,000 ML BAG IV STA (14:07)
[2024-04-08] MEDS ORDERED: LIDOCAINE 1% INJ 10MG/ML (20 ML MDV) ONE (15:15)
[2024-04-08] MEDS ORDERED: PROPOFOL 10 MG/ML 20 ML VIAL IV ONE (15:15)
--- NOTE | 2024-04-08 15:57 | P.PCN ---
Date of Procedure: 04/08/24 Procedure(s) Performed: Brief history: Patient is a pleasant scheduled for an elective upper endoscopy as well as colonoscopy as a part of evaluation of GERD and prior history of colon polyps. Last colonoscopy was 3 years ago. Procedure performed: Esophagogastroduodenoscopy with biopsy Colonoscopy with snare polypectomy. Preoperative diagnosis: GERD History of colon polyps Anesthesia: MAC Procedure: After informed consent was obtained from the patient was brought into the endoscopy unit and IV sedation was administered by anesthesia under continuous monitoring. Initially upper endoscopy was done. The Olympus GF 160 video endoscope was inserted inserted into the mouth and esophagus intubated without any difficulty and was gradually advanced into the stomach and duodenum and carefully examined. The bulb and second part of the duodenum appeared normal. The scope was then withdrawn into the stomach adequately insufflated with air and upon careful examination the antrum had mild gastritis and biopsies were done from this area. Mucosa of the body, cardia and fundus appeared normal. T he scope was then withdrawn into the esophagus. The GE junction was located at 40 cm to the incisors. It appeared irregular with no erythema erosions or ulcerations. Rest of the esophagus appeared normal. Patient tolerated the procedure well. At this time the patient continued to remain sedation. Initial digital rectal examination was normal. Olympus CF 160 video colonoscope was then inserted into the rectum and gradually advanced to the cecum without any difficulty. Careful examination was performed as the scope was gradually being withdrawn. The prep was excellent. The cecum, please 10 polyps measuring between 3 to 6 mm in size status post polypectomy. In the ascending colon there were 30 polyps measuring between 3 to 10 mm in size removed by snare polypectomy. In the transverse colon there were 10 polyps measuring between 5 to 6 mm in size removed by snare polypectomy. Rest of the ascending colon, transverse colon, descending colon, sigmoid colon and rectum appeared normal. Retroflexion was performed in the rectum and no lesions were noted. Patient tolerated the procedure well. Impression: 1. Upper endoscopy revealed mild antral gastritis but no evidence of esop hagitis or Lainez's esophagus 2. Colonoscopy revealed: a) 10 polyps in the cecum measuring between 3 to 6 mm in size status post snare polypectomy b) 30 polyps in the ascending colon measuring between 3 to 10 mm in size removed by snare polypectomy C) 10 polyps in the transverse colon measuring between 5 to 6 mm in size removed by snare polypectomy Recommendations: Findings of this examination were discussed with the patient as well as her family. She was advised to follow-up with the biopsy results. She will follow- up in the office in 1 week. Based on the biopsy results we will plan on repeat colonoscopy every 6 months to 1 year. Will consider genetic testing to evaluate for polyposis syndromes.
[2024-04-08 16:19] VITALS: RESP 18
[2024-04-08 16:52] VITALS: BP 135/88; PULSE 72
== END 2024-04-08 16:52 | disposition home or self-care (01) ==
LOC: ORWHC2ENDO 13:25
PROVIDERS: ATTEND Internal Medicine Gastroenterology
DX: Z12.11 Encounter for screening for malignant neoplasm of colon (principal); K31.9 Disease of stomach and duodenum, unspecified; D12.3 Benign neoplasm of transverse colon; D12.2 Benign neoplasm of ascending colon; D12.0 Benign neoplasm of cecum; K21.9 Gastro-esophageal reflux disease without esophagitis; Z87.19 Personal history of other diseases of the digestive system; Z86.010 Personal history of colon polyps
CPT/HCPCS: 88305; 45385; 43239; J2001; J2704

== ENCOUNTER → 2024-04-28 | Outpatient (CLI) | payer MEDICARE ==
[2024-04-28 10:30] LABS: Basophils % (A) 1.2 %; Eosinophils % (A) 5.3 %; HCT 34.4 % (37.2-46.3); HGB 10.6 g/dL (12.0-15.0); MCH 26.9 pg (27.0-32.0); MCHC 30.8 g/dL (32.0-37.0); MCV 87.3 FL (80.0-97.0); Mean Platelet Volume 10.4 FL (9.5-12.2); Monocytes % (A) 11.6 %; NRBC Per 100 WBC 0 X 10*3/uL (0.00-0.01); Neutrophils # (A) 2.51 X 10*3/uL (1.80-7.70); Neutrophils % (A) 58.2 %; Platelet Count 346 X 10*3/uL (140-440); RBC 3.94 X 10*6/uL (4.10-5.20); RDW 16.3 % (11.5-14.5); WBC 4.31 X 10*3/uL (4.50-10.00)
[2024-04-28 10:31] LABS: Basophils # (A) 0.05 X 10*3/uL (0.00-0.10); Eosinophils # (A) 0.23 X 10*3/uL (0.04-0.35); Lymphocytes # (A) 0.99 X 10*3/uL (0.90-5.00)
[2024-04-28 10:54] LABS: Protein, Total 6.1 g/dL (6.2-8.2)
[2024-04-28 11:05] LABS: % Iron Saturation 8.95 (12.00-45.00); ALT 64 U/L (8-44); AST 35 U/L (13-35); Albumin 4.3 g/dL (3.8-4.9); Albumin/Globulin Ratio 2.26 Ratio (1.60-3.17); Alkaline Phosphatase 235 U/L (41-126); Calcium 9.7 mg/dL (8.7-10.3); Carbon Dioxide 26.3 mmol/L (21.6-31.8); Chloride 101 mmol/L (96-109); Globulin 1.9 g/dL (1.6-3.3); Glucose 91 mg/dL (70-110); Hepatitis B Surface Antigen Nonreactive (Nonreactive); Hepatitis C IgG Antibody Nonreactive (Nonreactive); Iron 35 UG/DL (50-170); Potassium 4.9 mmol/L (3.5-5.5); Sodium 140 mmol/L (135-145); Total Bilirubin <0.2 mg/dL (0.3-1.2); Total Iron Binding Capacity 391 UG/DL (228-460); Total Protein 6.2 g/dL (6.2-8.2)
[2024-04-28 11:29] LABS: Ceruloplasmin 31.3 mg/dL (20.0-60.0)
[2024-04-28 11:36] LABS: Ferritin 15.5 ng/mL (10.0-291.0)
== END | disposition home or self-care (01) ==
LOC: LABWHC1 07:18
PROVIDERS: ATTEND Internal Medicine Gastroenterology
DX: R74.01 Elevation of levels of liver transaminase levels (principal)
CPT/HCPCS: 36415; 80053; 82103; 82390; 82728; 83516; 83540; 83550; 84165; 85025; 86038; 86803; 87340

== ENCOUNTER → 2024-05-03 | Outpatient (CLI) | payer MEDICARE ==
[2024-05-03 15:04] LABS: Basophils # (A) 0.06 X 10*3/uL (0.00-0.10); Basophils % (A) 1.2 %; Eosinophils # (A) 0.21 X 10*3/uL (0.04-0.35); Eosinophils % (A) 4.2 %; HCT 33.6 % (37.2-46.3); HGB 10.3 g/dL (12.0-15.0); Lymphocytes # (A) 1.63 X 10*3/uL (0.90-5.00); Lymphocytes % (A) 32.3 %; MCH 27.3 pg (27.0-32.0); MCHC 30.7 g/dL (32.0-37.0); MCV 89.1 FL (80.0-97.0); Mean Platelet Volume 10.9 FL (9.5-12.2); Monocytes # (A) 0.51 X 10*3/uL (0.20-1.00); Monocytes % (A) 10.1 %; NRBC Per 100 WBC 0 X 10*3/uL (0.00-0.01); Neutrophils # (A) 2.61 X 10*3/uL (1.80-7.70); Neutrophils % (A) 51.6 %; Platelet Count 340 X 10*3/uL (140-440); RBC 3.77 X 10*6/uL (4.10-5.20); RDW 16.6 % (11.5-14.5); WBC 5.05 X 10*3/uL (4.50-10.00)
[2024-05-03 16:18] LABS: % Iron Saturation 6.47 (12.00-45.00)
[2024-05-03 16:49] LABS: Protein, Total 6.2 g/dL (6.2-8.2)
[2024-05-03 18:29] LABS: Hepatitis C IgG Antibody Nonreactive (Nonreactive)
[2024-05-03 22:22] LABS: Hepatitis B Surface Antigen Nonreactive (Nonreactive)
== END | disposition home or self-care (01) ==
LOC: LABWHC1 07:43
PROVIDERS: ATTEND Internal Medicine Gastroenterology
DX: R74.01 Elevation of levels of liver transaminase levels (principal)
CPT/HCPCS: 36415; 82103; 82390; 82728; 83516; 83540; 83550; 84165; 85025; 86038; 86803; 87340

== ENCOUNTER → 2024-06-20 | Outpatient (CLI) | payer MEDICARE ==
[2024-06-20 11:05] LABS: ALT 19 U/L (8-44); AST 20 U/L (13-35); Albumin 4.5 g/dL (3.8-4.9); Alkaline Phosphatase 118 U/L (41-126); BUN/Creat Ratio 15.14 Ratio (12.00-20.00); Blood Urea Nitrogen 10.6 mg/dL (9.0-27.0); Calcium 9.4 mg/dL (8.7-10.3); Carbon Dioxide 23.1 mmol/L (21.6-31.8); Chloride 104 mmol/L (96-109); Globulin 1.8 g/dL (1.6-3.3); Glucose 97 mg/dL (70-110); Sodium 138 mmol/L (135-145); Total Bilirubin <0.2 mg/dL (0.3-1.2); Total Protein 6.3 g/dL (6.2-8.2)
== END | disposition home or self-care (01) ==
LOC: LABWHC1 06:59
PROVIDERS: ATTEND Internal Medicine Gastroenterology
DX: R74.01 Elevation of levels of liver transaminase levels
CPT/HCPCS: 36415; 80053

== ENCOUNTER → 2024-07-25 | Outpatient (CLI) | payer MEDICARE ==
--- NOTE | 2024-07-25 08:55 | US ---
EXAMINATION TYPE: US liver DATE OF EXAM: 07/25/2024 COMPARISON: 01/28/19 CLINICAL INDICATION: Female, 69 years old with history of R74.01 ELEVATION OF LEVELS OF LIVER TRANSAM INASE L; elevated labs TECHNIQUE: Grayscale and color Doppler imaging of the right upper quadrant was performed. FINDINGS: EXAM MEASUREMENTS: Liver Length: 13.6 cm Gallbladder Wall: Surgically absent CBD: 1.4 cm Right Kidney: 9.5 x 3.9 x 4.2 cm ENERGY MANAGEMENT SPECIALIST NOTES: Pancreas: parts seen appear wnl. Duct measuring 3mm Liver: heterogeneous Gallbladder: Surgically absent Evidence for sonographic Velasco's sign: No CBD: appears dilated, no obvious stone seen Right Kidney: wnl IMPRESSION: 1. Nonspecific pattern the liver can be associated with underlying hepatocellular disease or hepatic steatosis. 2. Postcholecystectomy changes. Common bile duct is distended measuring 1.4 cm. However, findings sta ble from prior exam correlate clinically. [facility], , 07/25/2024 8:53 AM
[2024-07-25 10:22] LABS: ALT 42 U/L (8-44); AST 27 U/L (13-35); Albumin 4.1 g/dL (3.8-4.9); Albumin/Globulin Ratio 2.05 Ratio (1.60-3.17); Alkaline Phosphatase 161 U/L (41-126); BUN/Creat Ratio 11.17 Ratio (12.00-20.00); Blood Urea Nitrogen 6.7 mg/dL (9.0-27.0); Calcium 8.8 mg/dL (8.7-10.3); Carbon Dioxide 27.2 mmol/L (21.6-31.8); Chloride 109 mmol/L (96-109); Glucose 95 mg/dL (70-110); Potassium 4.3 mmol/L (3.5-5.5); Sodium 145 mmol/L (135-145); Total Bilirubin <0.2 mg/dL (0.3-1.2); Total Protein 6.1 g/dL (6.2-8.2)
== END | disposition home or self-care (01) ==
LOC: RADUSWWP 07:05
PROVIDERS: ATTEND Internal Medicine Gastroenterology
DX: R74.01 Elevation of levels of liver transaminase levels
CPT/HCPCS: 76705; 80053

== ENCOUNTER → 2024-08-17 | Outpatient (CLI) | payer MEDICARE ==
--- NOTE | 2024-08-25 11:07 | MM ---
Reason for Exam: Screening (asymptomatic). Last mammogram was performed 1 year(s) and 1 month(s) ago. Patient History: Menarche at age 13. First Full-Term at age 18. Left ovary removed at age 28. Right ovary removed at age 28. Hysterectomy at age 28. Postmenopausal. Mother had breast cancer, age 50. Risk Values: Jaqueline 5 year model risk: 3.2%. NCI Lifetime model risk: 9.7%. Prior Study Comparison: 07/17/2020 Bilateral Screening Mammogram, [facility]. 07/18/2022 Bilateral MG 3D screening mammo w/cad, [facility]. 08/03/2023 Bilateral MG 3D screening mammo w/cad, [facility]. Tissue Density: There are scattered areas of fibroglandular density. Findings: Analyzed By CAD. Right breast: There is no suspicious group of microcalcifications or new suspicious mass. Left breast: There is no suspicious group of microcalcifications or new suspicious mass. Overall Assessment: Negative, BI-RAD 1 Management: Screening Mammogram of both breasts in [address] [facility] will attempt to contact patient to return for supplemental views and ultrasound if indicated. Patient should continue monthly self-breast exams. A clinical breast exam by your physician is recommended on an annual basis. This exam should not preclude additional follow-up of suspicious palpable abnormalities. Note on Jaqueline scores and lifetime risk: 1. A Jaqueline score greater than 3% is considered moderate risk. If this is the case, consider specialist referral to assess eligibility for a risk reducing agent. 2. If overall lifetime risk for the development of breast cancer is 20% or higher, the patient may qualify for future screening with alternating mammogram and breast MRI. [facility], , 08/25/2024 11:03 AM. Electronically signed and approved by: Jesús Rebollar DO
== END | disposition home or self-care (01) ==
LOC: RADMAMWWP 13:29
PROVIDERS: ATTEND Family Medicine
DX: Z12.31 Encounter for screening mammogram for malignant neoplasm of breast (principal); Z90.722 Acquired absence of ovaries, bilateral; Z78.0 Asymptomatic menopausal state; Z80.3 Family history of malignant neoplasm of breast; R92.323 Mammographic fibroglandular density, bilateral breasts
CPT/HCPCS: 77063; 77067

== ENCOUNTER 2024-10-19 09:38 | Day surgery (SDC) | payer MEDICARE ==
[~2024-10-19 09:38] MED LIST changes: +LACTATED RINGERS 1,000 ML IV SCH; +LIDOCAINE 1% (10MG/ML) FOR IV START INTRADERMA PRN; +ONDANSETRON 4 MG/2 ML VIAL IVP PRN; -TRANEXAMIC 1,000 MG/100ML-NACL 1,000 MG in SALINE 1 100ML.BAG IVPB PRN
[2024-10-19 10:10] VITALS: RESP 16; TEMP 98.8
[2024-10-19] MEDS: SODIUM CHLORIDE 0.9% 1,000 ML IV ONE (10:23)
[2024-10-19] MEDS: MIDAZOLAM 2 MG/2 ML VIAL IV ONE (10:35)
--- NOTE | 2024-10-19 10:42 | P.PCN ---
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 EGD revealed sick centimeter deep ulcer along the incisura angularis and 2 cm pyloric ulcer biopsies which revealed diffuse large B-cell lymphoma. She finished 6 cycles of chemotherapy and follows with Dr. Gonzales. Last EGD in June 2024 revealed a 1 cm residual gastric ulcer. Complains of intermittent dysphagia to solids. Scheduled for a follow-up upper endoscopy today. PROCEDURE PERFORMED: Esophagogastroduodenoscopy with biopsy. PREOPERATIVE DIAGNOSIS: Follow-up gastric lymphoma diagnosed in October 2023. IV sedation per anesthesia. PROCEDURE: After informed consent was obtained, the patient was brought into the endoscopy unit. IV sedation was administered by Anesthesia under continuous monitoring. Initially the Olympus GIF-140 video endoscope was inserted into the mouth. Esophagus intubated without any difficulty. It was gradually advanced into the stomach and duodenum and carefully examined. The bulb and the second part of the duodenum appeared normal. The scope at this time was withdrawn to the stomach, adequately insufflated with air, and upon careful examination, mucosa of the antrum, and mild diffuse gastritis. Previously noted large ulceration along the incisura angularis is completely healed with residual scar tissue and this was biopsied. Rest of the body, cardia and the fundus appeared normal. The scope was then withdrawn into the esophagus. The GE junction was located at 39 cm from the incisors. The esophagus appeared normal. There were no erosions or ulcerations seen and the patient tolerated the procedure well. IMPRESSION: 1. Completely healed gastric ulcers. 2. Mild diffuse gastritis. RECOMMENDATIONS: The findings of this examination were discussed with the patient as well as her family. She was advised to follow-up with the biopsy results. Will plan on a repeat upper endoscopy in 1 year.
[2024-10-19] MEDS ORDERED: PROPOFOL 10 MG/ML 20 ML VIAL IV ONE (10:59)
[2024-10-19] MEDS ORDERED: LIDOCAINE 2% (PF) 20 MG/ML 5 ML VIAL ONE (10:59)
[2024-10-19 12:03] VITALS: BP 150/86; PULSE 103
--- NOTE | 2024-10-19 12:21 | P.PCN ---
Date of Procedure: 10/19/24 Procedure(s) Performed: BRIEF HISTORY: Patient is a 16-year-old pleasant female scheduled for an elective colonoscopy as a part of evaluation of prior history of colon polyps. Her colonoscopy in 2020 revealed multiple colon polyps total of 84 all of which were removed and biopsies revealed adenoma. Next follow-up colonoscopy was in March 2024 and once again revealed multiple small polyps in the right colon total of 60 in number. Biopsies revealed adenoma. Genetic testing for APC gene and for Peck syndrome was negative. Because of multiple polyposis she is scheduled for repeat surveillance colonoscopy in 6 months. No family history of colon cancer. PROCEDURE PERFORMED: Colonoscopy with snare polypectomy. PREOPERATIVE DIAGNOSIS: History of multiple colon polyps/polyposis syndrome. IV sedation per Anesthesia. PROCEDURE: After informed consent was obtained, the patient, was brought into the endoscopy unit. IV sedation was administered by Anesthesia under continuous monitoring. Digital rectal examination was normal. Initially the Olympus CF-160 flexible video colonoscope was then inserted in the rectum, gradually advanced into the cecum without any difficulty. Careful examination was performed as the scope was gradually being withdrawn. Ileocecal valve and the appendiceal orifice were visualized and appeared normal. Prep was excellent. Mucosa of the cecum 5 polyps measuring between 5 mm to 7 mm in size removed by snare polypectomy. In the ascending colon there were 30 polyps measuring between 5 mm to 1 cm in size removed by snare polypectomy. In the transverse colon there were 25 polyps measuring between 5 mm to 1 cm in size removed by snare polypectomy. In the descending colon there were 5 polyps measuring between 3 to 5 mm in size removed by snare polypectomy. Rest of the sigmoid colon, and rectum appeared normal. Retroflexion was performed in the rectum and no lesions were seen. The patient tolerated the procedure well. IMPRESSION: 5 polyps in the cecum measuring between 5 mm to 7 mm in size removed by snare polypectomy 30 polyps in the ascending colon measuring between 5 mm to 1 cm in size removed by snare polypectomy 25 polyps in the transverse colon measuring between 5 mm to 1 cm in size removed by snare polypectomy 5 polyps in the descending colon measuring between 3 to 5 mm in size removed by snare polypectomy RECOMMENDATIONS: Findings of this examination were discussed with the patient as well as her family. She was advised to follow-up with the biopsy results. She will be seen in the office in 1 week and will discuss with possible colectomy in view of polyposis syndrome..
== END 2024-10-19 12:32 | disposition home or self-care (01) ==
LOC: ORWHC2ENDO 09:38
PROVIDERS: ATTEND Internal Medicine Gastroenterology
DX: D12.0 Benign neoplasm of cecum (principal); D12.2 Benign neoplasm of ascending colon; D12.3 Benign neoplasm of transverse colon; D12.4 Benign neoplasm of descending colon; K63.89 Other specified diseases of intestine; D13.91 Familial adenomatous polyposis; I10 Essential (primary) hypertension; J44.9 Chronic obstructive pulmonary disease, unspecified; E07.9 Disorder of thyroid, unspecified; M79.7 Fibromyalgia; M19.90 Unspecified osteoarthritis, unspecified site; F41.9 Anxiety disorder, unspecified; F32.A Depression, unspecified; G62.9 Polyneuropathy, unspecified; Z79.899 Other long term (current) drug therapy; Z79.890 Hormone replacement therapy; Z90.49 Acquired absence of other specified parts of digestive tract; Z90.710 Acquired absence of both cervix and uterus; Z98.890 Other specified postprocedural states; Z88.8 Allergy status to other drugs, medicaments and biological substances; Z88.2 Allergy status to sulfonamides
CPT/HCPCS: 45385; J2250; J2704; J2003; 88305

== ENCOUNTER → 2024-11-03 | Outpatient (CLI) | payer MEDICARE ==
[2024-11-03 08:07] LABS: African American GFR (CKD) >90 (>60 ml/min/1.73 sqM); Blood Urea Nitrogen 10 mg/dL (7-17); Non-African American GFR(CKD) >90 (>60 ml/min/1.73 sqM)
--- NOTE | 2024-11-03 09:48 | CT ---
EXAMINATION TYPE: CT abdomen pelvis w con DATE OF EXAM: 11/03/2024 9:22 AM COMPARISON: None CLINICAL INDICATION: Female, 69 years old with history of R11.0, R19.4, R10.11; right side pain, elev ated enzymes TECHNIQUE: Axial CT abdomen pelvis w con;Sagittal and coronal reformats were created on a separate w orkstation. Contrast used:100 mL of Isovue 300 with IV Contrast, (none if empty) Oral contrast used: with Oral Contrast (none if empty) CT DLP: 892 mGycm, Automated exposure control for dose reduction was used. FINDINGS: LOWER CHEST: Unremarkable ABDOMEN LIVER: Unremarkable GALLBLADDER AND BILE DUCTS: The gallbladder is surgically absent. There is extrahepatic biliary syste m and central intrahepatic bili system measuring up to 18 mm. PANCREAS: Lipomatous pseudohypertrophy changes. SPLEEN: Unremarkable. ADRENAL GLANDS: Unremarkable. KIDNEYS AND URETERS: No evidence of hydronephrosis or renal calculus. The ureters are unremarkable. PELVIS BLADDER: No evidence for wall thickening or mass given limitations of exam. REPRODUCTIVE: The uterus is surgically absent. ABDOMEN & PELVIS STOMACH AND BOWEL: No evidence of bowel obstruction. Short segment of wall thickening of the right up per quadrante ascending colon series 5 image 48 and transverse colon series 5 image 31. PERITONEUM/RETROPERITONEUM: No evidence of pneumoperitoneum or free fluid. VASCULATURE: No evidence of aortic aneurysm. MUSCULOSKELETAL: No acute osseous abnormalities. Moderate disc degeneration changes are present throu ghout the thoracolumbar spine. Scoliosis changes of the lumbar spine apex L4 on the left. LYMPH NODES: No gross evidence for lymphadenopathy. SOFT TISSUE/ABDOMINAL WALL: Unremarkable IMPRESSION: 1. Postcholecystectomy changes with dilation more than would be expected. Underlying obstruction at the papilla and/or noncalcified gallstones should be excluded. MRI MRCP with contrast should be consi dered. 2. Short segment segmental wall thickening of the ascending colon and transverse colon thought to be due to peristalsis. Attention follow-up imaging. [facility], , 11/03/2024 9:45 AM
== END | disposition home or self-care (01) ==
LOC: RADCTMAIN 07:04
PROVIDERS: ATTEND Family Medicine
DX: K63.89 Other specified diseases of intestine (principal); R10.11 Right upper quadrant pain; R11.0 Nausea; R19.4 Change in bowel habit; Z90.49 Acquired absence of other specified parts of digestive tract
CPT/HCPCS: 82565; 84520; 74177; 36415; Q9967

== ENCOUNTER → 2024-12-05 | Outpatient (CLI) | payer MEDICARE ==
--- NOTE | 2024-12-05 09:58 | MR ---
EXAMINATION TYPE: MR MRCP DATE OF EXAM: 12/05/2024 9:23 AM COMPARISON: 11/03/2024. 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 TECHNIQUE: Multi planar, T2-weighted imaging with and without fat saturation and chemical shift imag ing was performed of the abdomen. Then, heavily T2 weighted imaging (half-Fourier acquisition single- shot turbo spin-echo) was utilized in order to study the biliary system. Maximum intensity projectio n images were reconstructed from the original data of the biliary tree. 3D images were created on [place] work station. No Gadolinium given. FINDINGS: Lower Thorax: No evidence for acute process. MRCP: * The intrahepatic ducts are dilated * The extrahepatic ducts are dilated, no filling defects visualized. * The common hepatic duct measures 15 mm in size. * The common bile duct at the level of the pancreatic head measures 10 mm in size. * The pancreatic duct is normal. * The gallbladder is surgically absent. Cystic duct remnant is noted. Abdomen: Liver: No evidence for hepatic steatosis or cirrhosis. Pancreas: No ductal dilation. No evidence for solid mass. Spleen: Normal for size. Adrenal glands: Unremarkable. Kidneys: No evidence for obstructive uropathy. No suspicious renal masses. Stomach and Bowel: No evidence for bowel wall thickening or evidence for obstruction. Retroperitoneum/Peritoneum: No evidence of pneumoperitoneum or free fluid. Vasculature: No aortic aneurysm. Musculoskeletal: The osseous structures appear intact. Lymph Nodes: No gross evidence for lymphadenopathy. Abdominal wall: Unremarkable. IMPRESSION: Surgically absent gallbladder with dilation of the extra hepatic and central intrahepatic biliary luiza ts which can be seen in normal post cholecystectomy physiology. No evidence to suggest ductal strictu re or choledocholithiasis [facility], , 12/05/2024 9:55 AM
== END | disposition home or self-care (01) ==
LOC: RADMRIMAIN 07:41
PROVIDERS: ATTEND Internal Medicine Gastroenterology
DX: Q44.5 Other congenital malformations of bile ducts (principal); Z90.49 Acquired absence of other specified parts of digestive tract
CPT/HCPCS: 74181

== ENCOUNTER → 2025-01-18 | Outpatient (CLI) | payer MEDICARE ==
--- NOTE | 2025-01-18 16:44 | CT ---
EXAMINATION TYPE: CT cervical spine wo con DATE OF EXAM: 01/18/2025 COMPARISON: 05/05/2023 CLINICAL INDICATION: Female, 69 years old with history of M54.2 CERVICALGIA Z91.81 HX FALLS; [facility], Rec ent fall, ordering dr concerned with recent findings on xray. TECHNIQUE: CT scan of the cervical spine is obtained without contrast, axial images are obtained, sa gittal and coronal reformatted images are also reviewed. CT DLP: 422.[address] CTDI: mGy Automated exposure control for dose reduction was used. FINDINGS: The craniovertebral junction relationships and prevertebral soft tissues are normal. There is cervical fusion from C5 through C7. There is moderate disc space narrowing and spondylosis at the C3-4, C4-5 levels and C7/T1 levels cons istent with moderate degenerative disc disease. There is moderate facet arthropathy on the right. There is advanced uncovertebral vertebral joint deg eneration throughout the cervical spine. There is no bony encroachment of the cervical canal. There is mild right neural foraminal encroachment C4-5 on the right, moderate bony neuroforaminal enc roachment at C5-6 bilaterally and mild bony neural foraminal encroachment at C6-7 bilaterally. IMPRESSION: 1. No acute changes compared to the prior study. 2. Cervical fusion from C5 through C7. 3. Multilevel degenerative disc disease and osteoarthritis of the facet joints and uncovertebral join ts as described above. [facility], , 01/18/2025 4:41 PM
== END | disposition home or self-care (01) ==
LOC: RADCTMAIN 13:19
PROVIDERS: ATTEND Orthopaedic Surgery
DX: M47.812 Spondylosis without myelopathy or radiculopathy, cervical region (principal); M43.22 Fusion of spine, cervical region; M50.31 Other cervical disc degeneration, high cervical region; Z91.81 History of falling
CPT/HCPCS: 72125

== ENCOUNTER → 2025-04-06 | Outpatient (CLI) | payer MEDICARE | END | disposition home or self-care (01) | LOC: LABPAT 06:59 | PROVIDERS: ATTEND Orthopaedic Surgery | DX: Z01.812 Encounter for preprocedural laboratory examination (principal) | CPT/HCPCS: 86850; 86900; 86901 ==

== ENCOUNTER 2025-04-10 10:56 | Inpatient (IN) | payer MEDICARE ==
[2025-04-05 14:19] VITALS: BMI 26.4
--- NOTE | 2025-04-10 06:54 | P.HPOR ---
History of Present Illness H&P Date: 04/05/25 .D:Date: 04/05/25 : 10:50am .T:Title: FOLLOW UP CERVICAL FRACTURE / HARDWARE FAILURE Clinical Summary Lucía Zamudio presented today with ongoing issues related to a C7 vertebra fracture with hardware failure, resulting in significant pain and neurological symptoms. Despite multiple attempts to secure insurance authorization for necessary surgical intervention, there have been delays due to discrepancies in imaging interpretations. Lucía is experiencing worsening symptoms, including upper extremity weakness and paresthesias, and is using a cane for ambulation. The plan is to expedite surgical intervention, potentially through ER admission if insurance authorization is not obtained promptly. The urgency of the situation was emphasized, and alternative pathways for surgery were discussed. SURGICAL RECOMMENDATION: URGENT REVISION C5-T1 ANTERIOR CERVICAL DISCECOMTY AND FUSION WITH REMOVAL OF HARDWARE AND POSSIBLE C7 CORPECTOMY. Chief Complaint C7 vertebra fracture with hardware failure and associated pain and progressive neurological symptoms. History Pt presents today for follow up regarding their C7 vertebra fracture with hardware failure. Patient denies any f/c/sob/cp, perineal numbness and tingling, bowel or bladder incontinence/retention. The patients' past social, medical, family, surgical history, as well as review of systems, have been reviewed. Please refer to the Neurosurgery History and Physical form that has been scanned in to our electronic medical record system. 16 points review of systems completed and as stated in HPI, all other systems reviewed are negative. Physical Exam On examination today, the patient is alert and oriented times three, in no acute distress, appearing well nourished and well hydrated with overall alignment well maintained. Functionally, the patient demonstrates independent mln-xa-[id number] transition in less than 5 seconds and ambulates with a cane. Surgical Incision: HEALED. TTP: POSTERIOR CERVICAL SPINE, MIDLINE AND PARASPINAL, SEVERE AND PROGRESSED SEVERE PAIN WITH ROM OF CERVICAL SPINE ++SPURLUNGS TEST WITH SEVERE TENSIOINING SINGS Musculoskeletal examination reveals full range of motion in all major joints without restriction or pain. 3+/5 strength in all major muscle groups of bilateral upper extremities. 4/5 strength in all major muscle groups of the bilateral lower extremities. -NOW NEEDING CANE TO WALK AROUND DUE TO PROGRESSIVE WEAKNESS. Neurologically, sensation is intact to light touch throughout C3-T1 and L2-S1 dermatomes, with 2/4 reflexes in bilateral upper and lower extremities. Huber's, clonus, Babinski, and Alexandria's signs are all negative, with no tensioning signs present. Cranial nerves II-XII are grossly intact. Vascular examination demonstrates 2/4 distal pulses in all four extremities without edema, and compartments are soft and compressible. The abdomen is soft and non-tender to palpation, with normal, non-labored respirations noted. Imaging REVIEWED AGAIN TODAY, C7 VERTEBRAL BODY FRACTURE WITH SEVERE SUBSIDENCE OF CAGE AT C6-7 CAUSING THE ANCHOR AT C7 TO PROTRUDE INTO THE SPINAL CANAL CAUSING PRESSURE ON THE THECAL SAC AND CORD WHICH IS SEVERE AND VERY CONCERNING CONSIDERING HER SX. FLATTENING OF THE CERVICAL LORDOSIS SECONDARY TO THE COLLAPSE. Assessment 1. C7 vertebra fracture with hardware failure - ICD: Not provided 2. Myelopathy - ICD: Not provided 3. Upper extremity paresthesias - ICD: Not provided 4. Weakness in bilateral upper extremities - ICD: Not provided Plan - Expedite surgical intervention for C7 vertebra fracture and hardware failure due to severe sx, progressive neurological changes, increased need for assistive devices and pain. - Attempt to secure insurance authorization urgently. - Consider ER admission if pain worsens - Wear neck brace at all times. - SURGICAL RECOMMENDATION: URGENT REVISION C5-T1 ANTERIOR CERVICAL DISCECOMTY AND FUSION WITH REMOVAL OF HARDWARE AND POSSIBLE C7 CORPECTOMY. Medical Necessity Note: Lucía Zamudio presents with a critical C7 vertebra fracture with documented hardware failure that requires immediate surgical intervention. The patient is experiencing progressive neurological decline with upper extremity weakness (3+/5 strength bilaterally), paresthesias, and myelopathy symptoms, necessitating the use of a cane for ambulation. These symptoms represent a significant deterioration in her neurological status and daily function. Without prompt surgical intervention, there is substantial risk of permanent neurological damage, progression to complete hardware failure, potential spinal instability, and development of bowel/bladder dysfunction. The urgency of this case is heightened by the presence of myelopathy, which indicates spinal cord compression that could lead to irreversible neurological impairment if not addressed expeditiously. Surgical Rationale Note: Surgical intervention for Lucía Zamudio's C7 vertebra fracture with hardware failure is recommended based on clear radiographic evidence of hardware failure combined with corresponding clinical symptoms of myelopathy and upper extremity weakness and paresthesias. The current hardware failure is causing spinal instability and neurological compromise as evidenced by the patient's 3+/5 strength in bilateral upper extremities, use of ambulatory assistance, and sensory disturbances. Surgery will involve hardware revision and possibly decompression to stabilize the spinal column, relieve neural compression, and prevent further neurological deterioration. The timing of this intervention is critical, as delay in surgical management increases the risk of permanent neurological deficit, particularly in the context of myelopathy. Conservative management is not appropriate given the hardware failure and progressive neurological symptoms, making surgical intervention the only viable option to prevent potentially catastrophic neurological outcomes. Risks and Benefits Statement: The proposed surgical intervention for Lucía Zamudio's C7 vertebra fracture with hardware failure offers significant benefits including stabilization of the spinal column, prevention of further neurological deterioration, reduction of pain, and potential improvement in upper extremity strength and sensation. However, this procedure carries inherent risks that must be considered, including but not limited to: infection at the surgical site, adverse reaction to anesthesia, bleeding, hardware complications, incomplete resolution of symptoms, nerve damage, possible transient worsening of neurological symptoms, dysphagia, spinal fluid leak, and a small risk of paralysis. Additionally, there are standard perioperative risks including cardiovascular and pulmonary complications. The risk-benefit analysis strongly favors surgical intervention given the documented hardware failure, progressive myelopathy, and upper extremity weakness (3+/5 bilaterally), as the natural history without intervention likely includes permanent neurological deficit, increased pain, and potential catastrophic hardware failure leading to spinal instability and possible quadriplegia. Follow Up -POST OP Plan at Next Visit -Review surgical outcomes and recovery progress. Patient Education Medications Reviewed: YES In our visit today Lucía Zamudio and I have had a chance to go over my understanding of the patient's current condition, the natural course history without intervention and various interventional options. Questions were invited and answered, and the patient wishes to proceed as outlined above. I will be sure to keep you updated after Lucía Zamudio returns here for further follow-up. Thank you again for your referral. Please do not hesitate to contact me if you have any further questions. Signed and authenticated by: Michele Martinez DO [facility] AT [address] [address] This message is confidential, intended only for the named recipient(s) and may contain information that is privileged or exempt from disclosure under applicable law. If you are not the intended recipient(s), you are notified that the dissemination, distribution or copying of this information is strictly prohibited. If you received this message in error, please notify the sender then delete this message. # SIGNED BY Michele Martinez ([email or web address])04/05/2025 12:08PM Past Medical History Past Medical History: COPD, Fibromyalgia, GERD/Reflux, Hearing Disorder / Deafness, Hypertension, Liver Disease, Osteoarthritis (OA), Skin Disorder, Thyroid Disorder Additional Past Medical History / Comment(s): Diverticulitis, migraines, neuropathy - bilateral feet, rosacea face and scalp, non alcoholic fatty liver, interstitial cystitis, neck pain, bilateral hearing aid use, hx of colonoscopies with 88 polyps and next time 55 pre-cancerous polyps. History of Any Multi-Drug Resistant Organisms: None Reported Past Surgical History: Cholecystectomy, Heart Catheterization, Hernia Repair, Hysterectomy, Joint Replacement, Orthopedic Surgery, Tonsillectomy Additional Past Surgical History / Comment(s): Left knee arthroscopy X2, left knee replacement, bilateral carpal tunnel surgery, bilateral feet bunionectomy, right shoulder arthroscopy, right inguinal hernia repair, ovaries removed, right shoulder repair and replacement, neck surgery 05/2023, colonoscopies, EGD. Past Anesthesia/Blood Transfusion Reactions: No Reported Reaction Additional Past Anesthesia/Blood Transfusion Reaction / Comment(s): Hx blood transfusion with no issues. Smoking Status: Never smoker - Past Family History Father Family Medical History: Cancer Additional Family Medical History / Comment(s): Melanoma. Mother Family Medical History: Cancer Additional Family Medical History / Comment(s): Breast and colon cancer. Son(s) Family Medical History: Cancer Additional Family Medical History / Comment(s): Stage 4 tongue cancer. Sister(s) Family Medical History: Cancer Additional Family Medical History / Comment(s): Jaw cancer. Medications and Allergies Home Medications Medication Instructions Recorded Confirmed Type Amitriptyline HCl [Elavil] 100 mg PO HS 10/14/18 04/05/25 History Butalb/APAP/Caff 50-325-40Mg 1 tab PO TID 10/14/18 04/05/25 History [Fioricet 50-325-40] Cholecalciferol (Vitamin D3) 4,000 unit PO DAILY 10/14/18 04/05/25 History [Vitamin D3] atenoloL [Tenormin] 50 mg PO PC-SUPPER 10/14/18 04/05/25 History Levothyroxine Sodium [Synthroid] 88 mcg PO Q2D 10/31/19 04/05/25 History Sertraline [Zoloft] 100 mg PO QAM 10/31/19 04/05/25 History Ivermectin [Ivermectin 1%] 1 applic TOPICAL HS 02/02/23 04/05/25 History ALPRAZolam [Xanax] 0.25 mg PO DAILY PRN 04/28/23 04/05/25 History Amoxicillin 500 mg PO DIRECTED PRN 04/28/23 04/05/25 History metroNIDAZOLE 0.75% CREAM 1 applic TOPICAL DAILY 10/13/24 04/05/25 History [Metrocream 0.75%] Omeprazole 40 mg PO DAILY 03/16/25 04/05/25 History Allergies Allergy/AdvReac Type Severity Reaction Status Date / Time Sulfa (Sulfonamide Allergy Severe Rash/Hives Verified 04/05/25 14:25 Antibiotics) hydromorphone [From Dilaudid] Allergy Nausea & Verified 04/05/25 14:25 Vomiting duloxetine [From Cymbalta] AdvReac Unknown Verified 04/05/25 14:25 gabapentin AdvReac Unknown Verified 04/05/25 14:25 pregabalin [From Lyrica] AdvReac Unknown Verified 04/05/25 14:25 Physical Examination Osteopathic Statement: *. No significant issues noted on an osteopathic structural exam other than those noted in the History and Physical/Consult.
[~2025-04-10 10:56] MED LIST changes: +GABAPENTIN 300 MG CAP PO PRN; -LACTATED RINGERS 1,000 ML IV SCH; -ONDANSETRON 4 MG/2 ML VIAL IVP PRN; +TRANEXAMIC 1,000 MG/100ML-NACL 1,000 MG in SALINE 1 100ML.BAG IVPB PRN
[2025-04-10] MEDS: LACTATED RINGERS 1,000 ML IV SCH (12:16)
[2025-04-10] MEDS: IV FLUID CONTINUATION 1,000 ML IV ONE ×2 (12:18)
[2025-04-10] MEDS: ONDANSETRON 4 MG/2 ML VIAL IVP PRN (12:22)
[2025-04-10] MEDS: ACETAMINOPHEN TAB 500 MG TAB PO PRN (12:22)
[2025-04-10] MEDS: DEXAMETHASONE SOD PHOSPHATE 4 MG/ML 1 ML VIAL IVP STA (12:25)
[2025-04-10] MEDS ORDERED: ESMOLOL 100 MG/10 ML VIAL ONE (13:18)
[2025-04-10] MEDS ORDERED: MIDAZOLAM 2 MG/2 ML VIAL ONE (13:18)
[2025-04-10] MEDS ORDERED: KETAMINE HCL IN 0.9 % NACL 50 MG/5 ML SYRINGE ONE (13:18)
[2025-04-10] MEDS ORDERED: LIDOCAINE 1% INJ 10MG/ML (20 ML MDV) ONE (13:18)
[2025-04-10] MEDS ORDERED: SUCCINYLCHOLINE CHLORIDE 200 MG/10 ML VIAL IV ONE (13:18)
[2025-04-10] MEDS ORDERED: fentaNYL (PF) 50 MCG/ML 2 ML AMP ONE (13:18)
[2025-04-10] MEDS ORDERED: METOPROLOL TARTRATE 5 MG/5 ML VIAL IVP ONE (13:18)
[2025-04-10] MEDS ORDERED: TRANEXAMIC 1,000 MG/100ML-NACL PREMIX BAG ONE (13:18)
[2025-04-10] MEDS ORDERED: PROPOFOL 10 MG/ML 20 ML VIAL IV ONE (13:18)
[2025-04-10] MEDS: GELATIN SPONGE,ABSORB (LARGE) 1 EACH SPONGE MISCELLANE ONE (14:04)
[2025-04-10] MEDS: THROMBIN (BOVINE) 5,000 UNIT VIAL TOPICAL ONE (14:04)
[2025-04-10] MEDS: LACTATED RINGERS 1,000 ML IV ONE ×2 (16:02→16:34)
--- NOTE | 2025-04-10 17:00 | XR ---
EXAMINATION TYPE: XR cervical spine limited, OK guidance operating room Intraoperative/procedural flu oroscopic services were provided. CLINICAL INDICATION:Female, 69 years old with history of S12.6 CERVICAL 7 FRACTURE; , [facility] FINDINGS: Postsurgical changes for anterior fixation cervical hardware for revision anterior cervical discectom y. Hardware begins at the C5 level extending to the C7 level. Hardware appears intact with appropriat e alignment. No radiographic evidence for complication. Total fluoroscopy time is 36.9 seconds. DAP: 1.7734 Gycm2 Please see the operative/procedural note for further details. [facility], , 04/10/2025 4:57 PM
[2025-04-10] MEDS ORDERED: HYDROmorphone 0.5 MG/0.5 ML SYRINGE IVP PRN (17:09)
[2025-04-10] MEDS ORDERED: HYDROcodone/APAP 5-325MG 1 EACH TAB PO PRN (17:09)
[2025-04-10] MEDS ORDERED: MAGNESIUM HYDROXIDE 2,400 MG/30 ML CUP PO PRN (17:09)
[2025-04-10] MEDS ORDERED: HYDROmorphone 1 MG/ML 1 ML SYRINGE IVP PRN (17:09)
[2025-04-10] MEDS: fentaNYL (PF) 50 MCG/ML 2 ML AMP IV PRN (17:34)
[2025-04-10] MEDS: MORPHINE SULFATE 4 MG/ML SYRINGE IVP STA (17:54)
[2025-04-10] MEDS ORDERED: MORPHINE SULFATE 2 MG/ML SYRINGE IVP STA (17:54)
[2025-04-10] MEDS: ACETAMINOPHEN TAB 325 MG TAB PO SCH (20:30)
[2025-04-10] MEDS: CYCLOBENZAPRINE 5 MG TAB PO PRN (20:37)
[2025-04-10] MEDS: HYDROcodone/APAP 10-325MG 1 EACH TAB PO PRN (20:38)
[2025-04-10] MEDS: GABAPENTIN 300 MG CAP PO SCH (21:07)
--- NOTE | 2025-04-11 05:29 | P.CONS ---
History of Present Illness - Reason for Consult Consult date: 04/10/25 Medical management - Chief Complaint Status post T1 this discectomy and fusion post hardware failure - History of Present Illness The patient is a 9-year-old female with history of fibromyalgia chronic pain, hypertension hypothyroidism GERD hearing loss bilaterally patient is currently admitted under orthopedic surgery status post C7-T1 discectomy and fusion post hardware failure. The patient had symptoms including needing to ambulate with a cane. The patient postoperatively was complaining of pain in both her arms she has received Gove for pain. The patient chronically takes Tylenol with codeine. The patient denies any chest pain shortness of breath nausea or vomiting. Review of Systems Constitutional: Reports chronic headaches, Reports chronic pain, Reports weakness Past Medical History Past Medical History: COPD, Fibromyalgia, GERD/Reflux, Hearing Disorder / Deafness, Hypertension, Liver Disease, Osteoarthritis (OA), Skin Disorder, Thyroid Disorder Additional Past Medical History / Comment(s): Diverticulitis, migraines, neuropathy - bilateral feet, rosacea face and scalp, non alcoholic fatty liver, interstitial cystitis, neck pain, bilateral hearing aid use, hx of colonoscopies with 88 polyps and next time 55 pre-cancerous polyps. History of Any Multi-Drug Resistant Organisms: None Reported Past Surgical History: Cholecystectomy, Heart Catheterization, Hernia Repair, Hysterectomy, Joint Replacement, Orthopedic Surgery, Tonsillectomy Additional Past Surgical History / Comment(s): Left knee arthroscopy X2, left knee replacement, bilateral carpal tunnel surgery, bilateral feet bunionectomy, right shoulder arthroscopy, right inguinal hernia repair, ovaries removed, right shoulder repair and replacement, neck surgery 05/2023, colonoscopies, EGD. Past Anesthesia/Blood Transfusion Reactions: No Reported Reaction Additional Past Anesthesia/Blood Transfusion Reaction / Comm: Hx blood transfusion with no issues. Smoking Status: Never smoker - Past Family History Father Family Medical History: Cancer Additional Family Medical History / Comment(s): Melanoma. Mother Family Medical History: Cancer Additional Family Medical History / Comment(s): Breast and colon cancer. Son(s) Family Medical History: Cancer Additional Family Medical History / Comment(s): Stage 4 tongue cancer. Sister(s) Family Medical History: Cancer Additional Family Medical History / Comment(s): Jaw cancer. Medications and Allergies Home Medications Medication Instructions Recorded Confirmed Type Amitriptyline HCl [Elavil] 100 mg PO HS 10/14/18 04/10/25 History Butalb/APAP/Caff 50-325-40Mg 1 tab PO TID 10/14/18 04/10/25 History [Fioricet 50-325-40] Cholecalciferol (Vitamin D3) 4,000 unit PO DAILY 10/14/18 04/10/25 History [Vitamin D3] atenoloL [Tenormin] 50 mg PO PC-SUPPER 10/14/18 04/10/25 History Levothyroxine Sodium [Synthroid] 88 mcg PO Q2D 10/31/19 04/10/25 History Sertraline [Zoloft] 100 mg PO QAM 10/31/19 04/10/25 History Ivermectin [Ivermectin 1%] 1 applic TOPICAL HS 02/02/23 04/10/25 History ALPRAZolam [Xanax] 0.25 mg PO DAILY PRN 04/28/23 04/10/25 History Amoxicillin 500 mg PO DIRECTED PRN 04/28/23 04/10/25 History metroNIDAZOLE 0.75% CREAM 1 applic TOPICAL DAILY 10/13/24 04/10/25 History [Metrocream 0.75%] Omeprazole 40 mg PO DAILY 03/16/25 04/10/25 History Allergies Allergy/AdvReac Type Severity Reaction Status Date / Time Sulfa (Sulfonamide Allergy Severe Rash/Hives Verified 04/10/25 11:43 Antibiotics) hydromorphone [From Dilaudid] Allergy Nausea & Verified 04/10/25 11:43 Vomiting duloxetine [From Cymbalta] AdvReac Unknown Verified 04/10/25 11:43 gabapentin AdvReac Unknown Verified 04/10/25 11:43 pregabalin [From Lyrica] AdvReac Unknown Verified 04/10/25 11:43 Physical Exam Vitals: Vital Signs Temp Pulse Resp BP Pulse Ox 04/11/25 01:13 98.4 F 87 16 132/78 98 04/10/25 19:32 98.4 F 80 16 145/86 97 04/10/25 18:45 88 12 160/95 97 04/10/25 18:30 86 12 157/97 100 04/10/25 18:15 87 16 164/96 100 04/10/25 18:00 90 12 163/99 100 04/10/25 17:45 92 12 163/100 100 04/10/25 17:30 94 14 166/102 100 04/10/25 17:14 97.1 F L 98 14 159/94 100 04/10/25 11:58 97.0 F L 77 16 136/90 97 Intake and Output 04/10/25 04/10/25 04/11/25 14:59 22:59 06:59 Intake Total 2049 700 Output Total 710 1375 Balance 2049 Intake: IV 2049 Output: Urine 560 1375 Estimated Blood Loss 150 Other: Voiding Method Indwelling Catheter Weight 61.8 kg - Constitutional General appearance: average body habitus - EENT ENT: hearing grossly normal - Neck Neck: other (drain, brace in place) - Respiratory Respiratory: bilateral: CTA - Cardiovascular Rhythm: regular - Gastrointestinal General gastrointestinal: normal bowel sounds - Integumentary Integumentary: normal - Neurologic weakness upper extremity Results Abdominal x-ray: report reviewed Assessment and Plan (1) HTN (hypertension) Current Visit: Yes Status: Acute Code(s): I10 - ESSENTIAL (PRIMARY) HYPERTENSION SNOMED Code(s): 44371350 (2) Fibromyalgia Current Visit: Yes Status: Acute Code(s): M79.7 - FIBROMYALGIA SNOMED Code(s): 211994828 (3) Persistent headaches Current Visit: Yes Status: Acute Code(s): R51.9 - HEADACHE, UNSPECIFIED SNOMED Code(s): 49205364 (4) GERD (gastroesophageal reflux disease) Current Visit: Yes Status: Acute Code(s): K21.9 - GASTRO-ESOPHAGEAL REFLUX DISEASE WITHOUT ESOPHAGITIS SNOMED Code(s): 810148912 Plan: Status post C7-T1 discectomy and fusion continue home meds, will follow along and optimize as needed, on Gove hold Tylenol with codeine, optimize pain control
--- NOTE | 2025-04-11 06:20 | CT ---
EXAMINATION TYPE: CT cervical spine wo con DATE OF EXAM: 04/10/2025 11:31 PM COMPARISON: None. CLINICAL INDICATION: Female, 69 years old with history of s/p C5-C7 revision ACDF; c6 corpectomy; s/p C5-C7 revision ACDF; c6 corpectomy TECHNIQUE: Axial CT images from the skull base to the inferior aspect of T2 we obtained without intra venous contrast. Coronal and sagittal reformatted images were also reviewed. Contrast used: mL of , (if blank None) Oral contrast used: (if blank None) CT DLP: 269.5 mGycm, Automated exposure control for dose reduction was used. FINDINGS: Fracture: None. Osseous structures: Fixation hardware at the inferior aspect of C5-T1. Drainage catheter courses the neck and terminates anterior to the spine in the surgical bed. No evidence of fracture. Multilevel de generative disc disease changes with endplate spurring and disc osteophyte complex's. Vertebral alignment: Alignment within normal limits. Spinal canal/Neural Foramina: No evidence of significant spinal canal narrowing. No evidence for sign ificant neural foraminal stenosis. Neck soft tissues: Prevertebral soft tissues are within normal limits. Subcutaneous gas compatible wi th recent surgery. Drainage tube terminate anterior and to the spine. Other: The airway is patent. The lung apices are clear. IMPRESSION: 1. Postsurgical changes of C5-T1 with hardware in place. No evidence of cervical spine fracture. 2. Mild to moderate multilevel degenerative disc disease. [facility], , 04/11/2025 6:18 AM
[2025-04-11 07:17] LABS: Basophils # (A) 0.04 X 10*3/uL (0.00-0.10); Basophils % (A) 0.4 %; Eosinophils # (A) 0.06 X 10*3/uL (0.04-0.35); Eosinophils % (A) 0.6 %; HCT 30.1 % (37.2-46.3); HGB 9.7 g/dL (12.0-15.0); Immature Grans, Automated 0.50 %; Lymphocytes # (A) 1.72 X 10*3/uL (0.90-5.00); Lymphocytes % (A) 17.6 %; MCH 28.1 pg (27.0-32.0); MCHC 32.2 g/dL (32.0-37.0); MCV 87.2 FL (80.0-97.0); Monocytes # (A) 1.24 X 10*3/uL (0.20-1.00); Monocytes % (A) 12.7 %; NRBC Per 100 WBC 0 X 10*3/uL (0.00-0.01); Neutrophils # (A) 6.68 X 10*3/uL (1.80-7.70); Neutrophils % (A) 68.2 %; Platelet Count 175 X 10*3/uL (140-440); RBC 3.45 X 10*6/uL (4.10-5.20); RDW 15.4 % (11.5-14.5); WBC 9.79 X 10*3/uL (4.50-10.00)
[2025-04-11 08:28] LABS: Anion Gap 10.30 mmol/L (4.00-12.00); BUN/Creat Ratio 8.50 Ratio (12.00-20.00); Blood Urea Nitrogen 5.1 mg/dL (9.0-27.0); Calcium 8.5 mg/dL (8.7-10.3); Carbon Dioxide 24.7 mmol/L (21.6-31.8); Chloride 105 mmol/L (96-109); Glucose 98 mg/dL (70-110); Potassium 3.9 mmol/L (3.5-5.5); Sodium 140 mmol/L (135-145)
--- NOTE | 2025-04-11 08:33 | P.PN ---
Subjective Progress Note Date: 04/11/25 Principal diagnosis: 1. C7 vertebra fracture with hardware failure 2. Myelopathy 3. Upper extremity paresthesias 4. Weakness in bilateral upper extremities Patient seen and examined this morning. Patient is resting comfortably in bed. Patient does report that her pain has not been controlled on current regimen. Medications have been adjusted. Surgical incision to the anterior cervical spine, dressing is clean dry and intact with PEGGY drain present. The drain will remain at this time due to patient being scheduled for posterior cervical procedure on , 04/13/2025. Patient is tearful during today's visit, emotional support provided. Patient expresses that she is just frustrated with how much damage was done due to a fall. Patient does request that Graham c atheter be removed at this time. Orders have been placed. Patient may work with physical therapy, [place] hard collar needs to be in place at all times. No acute concerns. Objective - Vital Signs Vital signs: Vital Signs Temp 98.4 F 04/11/25 01:13 Pulse 87 04/11/25 01:13 Resp 16 04/11/25 01:13 BP 132/78 04/11/25 01:13 Pulse Ox 98 04/11/25 01:13 FiO2 Intake & Output 04/10/25 04/11/25 04/11/25 18:59 06:59 18:59 Intake Total 2750 Output Total 710 2024 Balance 2039 -2024 Weight 61.8 kg 61.8 kg Intake: IV 2750 Output: Urine 560 2024 Estimated Blood Loss 150 Other: Voiding Method Indwelling Catheter - Exam Physical Examination General: The patient is awake and alert, in no acute distress. Skin: Skin is warm and dry with no obvious rashes or lesions. Surgical incision to the anterior cervical spine, dressing is clean dry and intact with PEGGY drain present. Eye: Pupils are equal, round and reactive to light, extra-ocular movements are intact; there is normal conjunctiva bilaterally. Neck: The neck is supple, there is mild tenderness around the incision site. Limited range of motion due to surgery and placement of the [place] hard cervical collar. Respiratory: Respirations are non-labored. Gastrointestinal: Soft, non-distended, non-tender abdomen. Back: There is no tenderness to palpation in the midline, paralumbar, parathoracic or buttocks region. There is no obvious deformity. Musculoskeletal: ROM limited secondary to pain and stiffness from surgical procedure. Right: Shoulder abduction 4/5, elbow flexors 4/5, wrist dorsiflexors 4/5. finger abductor 4/5, claims adjudicator 4/5, hip flexor 5/5, knee flexor 5/5, ankle dorsiflexor 5/5, ankle plantarflexion 5/5 and extensor hallucis 5/5 Left: Shoulder abduction 4/5, elbow flexors 4/5, wrist dorsiflexors 4/5. finger abductor 4/5, claims adjudicator 4/5, hip flexor 5/5, knee flexor 5/5, ankle dorsiflexor 5/5, ankle plantarflexion 5/5 and extensor hallucis 5/5. Neurological: CN 2-12 intact. There are no obvious motor or sensory deficits. Movement and coordination equal and intact. Sensory exam to light touch intact C5-T1 and intact from L2-S1. Reflexes 2/4 in bilateral upper and lower extremities. Negative Hoffmans, babinski, and clonus signs. Psychiatric: Cooperative, appropriate mood & affect, normal judgment. - Labs CBC & Chem 7: 04/11/25 03:55 Labs: Abnormal Lab Results - Last 24 Hours (Table) 04/11/25 Range/Units 03:55 RBC 3.45 L (4.10-5.20) X 10*6/uL Hgb 9.7 L (12.0-15.0) g/dL Hct 30.1 L (37.2-46.3) % RDW 15.4 H (11.5-14.5) % Immature Gran # 0.05 H (0.00-0.04) X 10*3/uL Monocytes # 1.24 H (0.20-1.00) X 10*3/uL Assessment and Plan Assessment: Postop day 1: Revision C5-T1 ACDF Plan: -Appreciate data warehouse consultant and team management. -Patient is scheduled for posterior cervical surgery on 04/13/2025. -Activity: Ambulate QID, OOB all meals, up and about, limit lifting bending twi sting to less than 5 lbs. Use walker or cane if needed for stability. -Daily PT/OT, increase ambulation strength and balance. - Hard cervical collar on at all times. -Pain control: Medications have been modified. -Meds: reviewed -GI ppx: senclaudia, Miralax -PRISCA graham this morning. -DVT PPX: heparin -Hygiene: Maintain incision clean and dry. -Drains: Maintain for now. Continue to monitor and record output q shift. -Encourage IS 10x/hr -Dispo: Clinically pending *I reviewed and discussed this case with my attending Dr. Martinez, whom has reviewed this chart and films and is in agreement with assessment and plan of care as outlined above. I have personally seen and examined the patient, performed the documentation and the assessment and plan as written. Number of minutes spent on the visit: 20m.
[2025-04-11] MEDS: PANTOPRAZOLE 40 MG TABLET PO SCH (09:22)
[2025-04-11] MEDS: SERTRALINE 100 MG TAB PO SCH (09:22)
[2025-04-11] MEDS: CYCLOBENZAPRINE 5 MG TAB PO SCH (09:22)
[2025-04-11] MEDS: MORPHINE SULFATE 2 MG/ML SYRINGE IVP PRN (09:23)
[2025-04-11] MEDS: LEVOTHYROXINE 88 MCG TAB PO SCH (09:23)
--- NOTE | 2025-04-11 15:25 | P.OP ---
Date of Procedure: 04/10/25 Preoperative Diagnosis: 1. C7 FRACTURE WITH HARDWARE FAILURE 2. CERVICAL STENOSIS WITH MYELOPATHY 3. NECK PAIN S/P C5-7 ACDF WITH HARDWARE FAILURE DUE TO FRACTURE 4. UE AND LE WEAKNESS, PROGRESSIVE Postoperative Diagnosis: 1. C7 FRACTURE WITH HARDWARE FAILURE 2. CERVICAL STENOSIS WITH MYELOPATHY 3. NECK PAIN S/P C5-7 ACDF WITH HARDWARE FAILURE DUE TO FRACTURE 4. UE AND LE WEAKNESS, PROGRESSIVE Procedure(s) Performed: 1. C6 CORPECTOMY, COMPLETE 2. C7 CORPECTOMY, COMPLETE 3. C5-T1 ANTERIOR CERVICAL ARTHRODESIS 4. REMOVAL OF ANTERIOR CERVICAL HARDWARE C6 AND C7 5. ANTERIOR CERVICAL INSTRUMENTATION C5-T1 6. INSERTION OF BIOMECHANICAL DEVICE C5-T1 CAGE USE OF IONM USE OF IO MICROSCOPE Implants: Hancock cascadia Peek Corpectomy cage 40 mm Hancock ozark plate/screw 50mm/14mm Magnatos/autograft Anesthesia: JAYME Surgeon: Michele Martinez Property Loss Insurance Claim Adjuster #1: Sudhakar Obrien (was present and assisted with all aspects of the case from positioning to dressing placement) Estimated Blood Loss (ml): 150 IV fluids (ml): 1,500 Urine output (ml): 300 Pathology: none sent Condition: stable Disposition: PACU Indications for Procedure: Lucía Zamudio presented today with ongoing issues related to a C7 vertebra fracture with hardware failure, resulting in significant pain and neurological symptoms. Despite multiple attempts to secure insurance authorization for necess lucian surgical intervention, there have been delays due to discrepancies in imaging interpretations. Lucía is experiencing worsening symptoms, including upper extremity weakness and paresthesias, and is using a cane for ambulation. The plan is to expedite surgical intervention, potentially through ER admission if insurance authorization is not obtained promptly. The urgency of the situation was emphasized, and alternative pathways for surgery were discussed. SURGICAL RECOMMENDATION: URGENT REVISION C5-T1 ANTERIOR CERVICAL DISCECOMTY AND FUSION WITH REMOVAL OF HARDWARE AND POSSIBLE C7 CORPECTOMY. Description of Procedure: Patient was transferred to OR suite by department of anesthesia and drifted off to sleep. General endotracheal intubation was performed. Patient was transferred to the flat top Sennaris table and secured. Arms were tucked at her side and well padded. Safety strap was placed. All bony prominences were padded. Patient was placed on a towel roll and her head was placed on a gel foam donut in a slightly extended position. Neuromonitoring obtained pre-positioning motors and post, all stable. Preoperative briefing was done with all in agreement. X-ray was brought in for a lateral image to micaela levels for operation. Skin micaela was made over the previous incision micaela, outlined in 10-10 drapes and cleaned with alcohol. The patient's anterior neck was prepped and draped in a normal sterile fashion. Timeout was performed with all parties in agreement. Transverse skin incision was made over the right side of the patient's neck over a previous incision. Blunt dissection was taken down to the platysma, which was split transversely. This revealed the sternocleidomastoid and omohyoid muscles as well as previous track for surgery. This track was exposed using tenotomies and blunt dissection, taken down to the prevertebral fascia between the carotid sheath and esophagus, which was cleared off of the previous hardware. The previous hardware was protruding and prominent secondary to collapse, with exuberant scar tissue over this area. This was cleared with [place] and electrocautery. Once completely cleared with good exposure of the longissimus muscles bilaterally off of the vertebral bodies and implants, retractors were placed. We proceeded to remove implants from C5-6 and C6-7. C6 and C7 vertebral bodies were essentially non-existent secondary to collapse and fracture. C5 and T1 vertebral bodies were in good condition. [place] pins were placed into C5 and T1 and distraction gently taken over these levels. Complete corpectomy of C6 and C7 was performed using high-speed kenny, Kerrison rongeurs, rongeurs, and upbiting curettes, guided by lateral and AP fluoroscopic imaging. Motors remained stable. Once complete decompression and removal was done, Interbody cage was trialed and measured with a caliper. 40 millimeter cage was selected, packed with Magnitoss and autograft harvested from the local area. Distraction was placed, and neuromonitoring motors were run and stable. The cage was inserted under AP and lateral fluoroscopic guidance, allowing baptist of height, lordosis, and alignment. Motors remained stable before and after cage placement. A 50 millimeter plate was selected and holes were drilled in T1 and C5 vertebral bodies. Fixed screws were placed with good bite and locking mechanisms secured. The plate was tested and stable. Motors were run before and after all processes and remained stable. The wound was copiously irrigated with normal sterile saline. AP and lateral fluoroscopic images confirmed good placement of hardware and baptist of height, lordosis, and alignment. Meticulous hemostasis was performed. A deep drain was placed out of a secondary hole and sewn in position to the skin. Surgicel was placed over the hardware and deep in the wound. The wound was closed in a layered fashion with 3-0 Vicryl in the platysma muscle and fascia, 3-0 in the superficial sub-Q, and a 4-0 Stratofix subcuticular running stitch. Skin glue was applied. The patient was placed in a hard cervical collar after dressing placement and transferred back to their hospital bed. They were then transferred to the post-operative care unit in stable condition after extubation by department of anesthesia, having tolerated the procedure well without complication.
--- NOTE | 2025-04-11 15:54 | P.PN ---
Subjective Progress Note Date: 04/11/25 Hospital course: Patient is a pleasant 69-year-old female with a past medical history of hypertension, hypothyroidism, fibromyalgia, GERD, anxiety with depression and asthma/COPD. She is currently admitted under orthospine surgery team status post C6-C7 corpectomy and C5-T1 anterior cervical arthrodesis with removal of anterior cervical hardware and insertion of anterior cervical instrumentation and biomechanical cage device C5-T1. We were consulted for medical management throughout hospitalization. Physical exam: Patient seen and fully evaluated at bedside this morning. She was resting comfortably with family at bedside. She reports moderate postoperative pain and continued difficulty swallowing. Patient denies choking or coughing on fluids/food but does report having a sore throat and constant feeling as though something is in her throat. She is maintaining secretions and able to swallow without difficulties. She denies experiencing any headache, lightheadedness, dizziness, chest pain, palpitations, shortness of breath, cough or congestion, nausea, vomiting, or experiencing any numbness/tingling/weakness in her extremities. Bean catheter in place. Vital signs reviewed and stable. General: Nontoxic, no distress and appears stated age. Derm: Skin warm and dry, normal coloration for ethnicity. Head: Atraumatic, normocephalic and symmetric. Hard c-collar in place. PEGGY drain in place. Eyes: EOM's intact, no lid lag, and anicteric sclera Mouth: no lip lesions, mucus membranes moist Cardiovascular: regular rate and rhythm with normal S1S2, no murmur, positive posterior tibial pulses bilaterally, and cap refill < 2 seconds. Lungs: Respirations even, regular, and unlabored on room air. Lungs CTA bilaterally, no rhonchi, no rales, no wheezing, and no accessory muscle usage. Abdominal: soft, nontender to palpation, no guarding, no appreciable organomegaly Ext: ROM intact. No gross muscle atrophy, no edema, no contractures Neuro: Speech clear, face symmetrical and CN II-XII grossly intact with no noted focal neuro deficits Psych: Alert and oriented to person, place, time, and situation. Appropriate and pleasant affect. Assessment and Plan of Care: Status post cervical C6-C7 corpectomy and C5-T1 anterior cervical arthrodesis with removal of anterior cervical hardware and insertion of anterior cervical instrumentation and biomechanical cage device C5-T1 Management per primary admitting orthospine surgery team including DVT prophylaxis, wound/dressing/drain management, pain management, and advancement of activity. Currently DVT prophylaxis with VIVIANA hose and SCDs Encourage use of incentive spirometry 10-15 times hourly while awake. Acute postoperative blood loss anemia Preoperative hemoglobin 11.1 and postoperative hemoglobin of 9.7. This is a stable and expected finding. No active bleeding noted. No need for transfusion or further intervention at this time. Hypertension Monitor vital signs and continue daily medication regimen with atenolol 50 mg daily Hypothyroidism Continue levothyroxine 88 mcg daily. Anxiety and depression Continue Elavil 100 mg nightly and Zoloft 100 mg daily. Data and imaging reviewed: Postoperative labs reviewed showing acute postoperative blood loss anemia with preoperative hemoglobin of 11.1 and postoperative hemoglobin of 9.7. BMP unremarkable. Blood glucose 98. Vital signs reviewed. Blood pressure 132/78, heart rate 87, respiratory rate 16, temp 98.4 F, and SpO2 of 98% on room air. Thank you for allowing us to participate in the care of this pleasant patient. Do not hesitate to contact us with questions. Someone can be reached from the [facility] hospitalist group all hours of the day at [phone] or via [employer]. Patient was seen independently by Nurse Pracitioner. This document was prepared using [employer] dictation software. Please allow for errors in rim fire priming tool setter, while rare they do occur. Demarco Gregory NP rendered care for this patient independently, reviewed the findings and plan as documented in the note above and agree with plan. I did no t physically speak with or examine the patient on this date. Objective - Vital Signs Vital signs: Vital Signs Temp 98.4 F 04/11/25 01:13 Pulse 87 04/11/25 01:13 Resp 16 04/11/25 01:13 BP 132/78 04/11/25 01:13 Pulse Ox 98 04/11/25 01:13 FiO2 Intake & Output 04/10/25 04/11/25 04/11/25 18:59 06:59 18:59 Intake Total 2750 Output Total 710 2024 Balance 2039 -2024 Weight 61.8 kg 61.8 kg Intake: IV 2750 Output: Urine 560 2024 Estimated Blood Loss 150 Other: Voiding Method Indwelling Catheter - Labs CBC & Chem 7: 04/11/25 03:55 04/11/25 03:55 Labs: Abnormal Lab Results - Last 24 Hours (Table) 04/11/25 04/11/25 Range/Units 03:55 03:55 RBC 3.45 L (4.10-5.20) X 10*6/uL Hgb 9.7 L (12.0-15.0) g/dL Hct 30.1 L (37.2-46.3) % RDW 15.4 H (11.5-14.5) % Immature Gran # 0.05 H (0.00-0.04) X 10*3/uL Monocytes # 1.24 H (0.20-1.00) X 10*3/uL BUN 5.1 L (9.0-27.0) mg/dL BUN/Creatinine Ratio 8.50 L (12.00-20.00) Ratio Calcium 8.5 L (8.7-10.3) mg/dL
[2025-04-11] MEDS: SENNOSIDES-DOCUSATE SODIUM 1 EACH TAB PO PRN (21:09)
[2025-04-11] MEDS: AMITRIPTYLINE HCL 50 MG TAB PO SCH (21:09)
[2025-04-12] MEDS: MORPHINE SULFATE 4 MG/ML SYRINGE IVP PRN ×2 (09:53→14:40)
--- NOTE | 2025-04-12 11:47 | P.PN ---
Subjective Progress Note Date: 04/12/25 Principal diagnosis: 1. C7 vertebra fracture with hardware failure 2. Myelopathy 3. Upper extremity paresthesias 4. Weakness in bilateral upper extremities Patient seen and examined this morning. Patient is resting comfortably in bed. Patient does report that her pain has not been controlled on current regimen. Medications have been adjusted again. Surgical incision to the anterior cervical spine, dressing is clean dry and intact with PEGGY drain present. Wray cervical collar is intact. Informed patient that she will be NPO at OR for the second part of her surgery, she verbalizes understanding. No acute concerns. Objective - Vital Signs Vital signs: Vital Signs Temp 99.3 F 04/12/25 07:35 Pulse 104 H 04/12/25 07:35 Resp 20 04/12/25 07:35 BP 167/93 04/12/25 07:35 Pulse Ox 98 04/12/25 07:35 FiO2 Intake & Output 04/11/25 04/12/25 04/12/25 18:59 06:59 18:59 Intake Total 180 Output Total 0 0 Balance 0 0 180 Intake: Oral 180 Output: Drainage 0 0 Anterior Neck 0 0 Other: Voiding Method Indwelling Catheter Toilet # Voids 3 2 - Exam Physical Examination General: The patient is awake and alert, in no acute distress. Skin: Skin is warm and dry with no obvious rashes or lesions. Surgical incision to the anterior cervical spine, dressing is clean dry and intact with PEGGY drain present. Eye: Pupils are equal, round and reactive to light, extra-ocular movements are intact; there is normal conjunctiva bilaterally. Neck: The neck is supple, there is mild tenderness around the incision site. Limited range of motion due to surgery and placement of the Wray hard cervical collar. Respiratory: Respirations are non-labored. Gastrointestinal: Soft, non-distended, non-tender abdomen. Back: There is no tenderness to palpation in the midline, paralumbar, parathoracic or buttocks region. There is no obvious deformity. Musculoskeletal: ROM limited secondary to pain and stiffness from surgical procedure. Right: Shoulder abduction 4/5, elbow flexors 4/5, wrist dorsiflexors 4/5. finger abductor 4/5, public health educator 4/5, hip flexor 5/5, knee flexor 5/5, ankle dorsiflexor 5/5, ankle plantarflexion 5/5 and extensor hallucis 5/5 Left: Shoulder abduction 4/5, elbow flexors 4/5, wrist dorsiflexors 4/5. finger abductor 4/5, public health educator 4/5, hip flexor 5/5, knee flexor 5/5, ankle dorsiflexor 5/5, ankle plantarflexion 5/5 and extensor hallucis 5/5. Neurological: CN 2-12 intact. There are no obvious motor or sensory deficits. Movement and coordination equal and intact. Sensory exam to light touch intact C5-T1 and intact from L2-S1. Reflexes 2/4 in bilateral upper and lower extremities. Negative Hoffmans, babinski, and clonus signs. Psychiatric: Cooperative, appropriate mood & affect, normal judgment. - Labs CBC & Chem 7: 04/11/25 03:55 04/11/25 03:55 Assessment and Plan Assessment: Postop day 2: Revision C5-T1 ACDF Plan: -Appreciate oracle fusion consultant and team management. -Patient is scheduled for posterior cervical surgery on 04/13/2025. -Activity: Ambulate QID, OOB all meals, up and about, limit lifting bending twisting to less than 5 lbs. Use walker or cane if needed for stability. -Daily PT/OT, increase ambulation strength and balance. - Hard cervical collar on at all times. -Pain control: Medications have been modified. -Meds: reviewed -GI ppx: senna, Miralax -DVT PPX: heparin -Hygiene: Maintain incision clean and dry. -Drains: Maintain for now. Continue to monitor and record output q shift. -Encourage IS 10x/hr -Dispo: Clinically pending *I reviewed and discussed this case with my attending Dr. Martinez, whom has reviewed this chart and films and is in agreement with assessment and plan of care as outlined above. I have personally seen and examined the patient, performed the documentation and the assessment and plan as written. Number of minutes spent on the visit: 20m.
--- NOTE | 2025-04-12 15:37 | P.PN ---
Subjective Progress Note Date: 04/12/25 Hospital Course: Patient is a pleasant 69-year-old female with a past medical history of hypertension, hypothyroidism, fibromyalgia, GERD, anxiety with depression and asthma/COPD. She is currently admitted under orthospine surgery team status post C6-C7 corpectomy and C5-T1 anterior cervical arthrodesis with removal of anterior cervical hardware and insertion of anterior cervical instrumentation and biomechanical cage device C5-T1. We were consulted for medical management t hroughout hospitalization. Physical exam: Patient seen and fully evaluated at bedside this morning. She was ambulating in room visiting with family at bedside. Patient reports having a full night secondary to uncontrolled pain and today states she is having headache and moderate postoperative pain with continued pain with swallowing. Patient reports she is tolerating clear liquids and thicken foods such as pudding and ice cream without any difficulties and denies any episodes of nausea or vomiting. She reports urinating without any difficulties and reports normal bowel movement. Hard c-collar and PEGGY drain remain in place. Patient is scheduled for second part of surgical procedure of C5-T1 posterior cervical decompression fusion tomorrow. Again reiterated with patient and patient's family at bedside importance of incentive spirometry use 10-15 times hourly while awake to prevent postoperative atelectasis and development of pneumonia. Vital signs reviewed and stable. General: Nontoxic, no distress and appears stated age. Derm: Skin warm and dry, normal coloration for ethnicity. Head: Atraumatic, normocephalic and symmetric. Hard c-collar in place. PEGGY drain in place. Eyes: EOM's intact, no lid lag, and anicteric sclera Mouth: no lip lesions, mucus membranes moist Cardiovascular: regular rate and rhythm with normal S1S2, no murmur, positive p osterior tibial pulses bilaterally, and cap refill < 2 seconds. Lungs: Respirations even, regular, and unlabored on room air. Lungs CTA bilaterally, no rhonchi, no rales, no wheezing, and no accessory muscle usage. Abdominal: soft, nontender to palpation, no guarding, no appreciable organomegaly Ext: ROM intact. No gross muscle atrophy, no edema, no contractures Neuro: Speech clear, face symmetrical and CN II-XII grossly intact with no noted focal neuro deficits Psych: Alert and oriented to person, place, time, and situation. Appropriate and pleasant affect. Assessment and Plan of Care: Status post cervical C6-C7 corpectomy and C5-T1 anterior cervical arthrodesis with removal of anterior cervical hardware and insertion of anterior cervical instrumentation and biomechanical cage device C5-T1 Management per primary admitting orthospine surgery team including DVT prophylaxis, wound/dressing/drain management, pain management, and advancement of activity. - Patient is scheduled for second part of surgical procedure of C5-T1 posterior cervical decompression fusion tomorrow. Currently DVT prophylaxis with VIVIANA hose and SCDs Encourage use of incentive spirometry 10-15 times hourly while awake. Acute postoperative blood loss anemia Preoperative hemoglobin 11.1 and postoperative hemoglobin of 9.7. This is a stable and expected finding. No active bleeding noted. No need for transfusion or further intervention at this time. Hypertension Monitor vital signs and continue daily medication regimen with atenolol 50 mg daily Hypothyroidism Continue levothyroxine 88 mcg daily. Anxiety and depression Continue Elavil 100 mg nightly and Zoloft 100 mg daily. Data and imaging reviewed: Labs reviewed showing acute postoperative blood loss anemia with preoperative hemoglobin of 11.1 and postoperative hemoglobin of 9.7. BMP unremarkable. Blood glucose 98. Vital signs reviewed. Blood pressure 167/93, heart rate 104, respiratory rate 20, temp 99.3 F, and SpO2 of 98% on room air. Thank you for allowing us to participate in the care of this pleasant patient. Do not hesitate to contact us with questions. Someone can be reached from the [facility] hospitalist group all hours of the day at [phone] or via perfect serve. Patient was seen independently by Nurse Pracitioner. This document was prepared using [employer] dictation software. Please allow for errors in diagnostics tech, while rare they do occur. Demarco Gregory NP rendered care for this patient independently, reviewed the findings and plan as documented in the note above and agree with plan. I did not physically speak with or examine the patient on this date. Objective - Vital Signs Vital signs: Vital Signs Temp 99.3 F 04/12/25 07:35 Pulse 104 H 04/12/25 07:35 Resp 20 04/12/25 07:35 BP 167/93 04/12/25 07:35 Pulse Ox 98 04/12/25 07:35 FiO2 Intake & Output 04/11/25 04/12/25 04/12/25 18:59 06:59 18:59 Output Total 0 0 Balance 0 0 Output: Drainage 0 0 Anterior Neck 0 0 Other: Voiding Method Indwelling Catheter Toilet # Voids 3 2 - Labs CBC & Chem 7: 04/11/25 03:55 04/11/25 03:55 Labs: Abnormal Lab Results - Last 24 Hours (Table) 04/11/25 Range/Units 03:55 BUN 5.1 L (9.0-27.0) mg/dL BUN/Creatinine Ratio 8.50 L (12.00-20.00) Ratio Calcium 8.5 L (8.7-10.3) mg/dL
[2025-04-12] MEDS: HYDROcodone/APAP 10-325MG 1 EACH TAB PO PRN (17:01)
[2025-04-13] MEDS ORDERED: TRANEXAMIC ACID 1,000 MG in SODIUM CHLORIDE 0.9% 100 ML IVPB PRN (06:00)
[2025-04-13 07:49] LABS: HCT 26.4 % (37.2-46.3); HGB 8.4 g/dL (12.0-15.0); MCH 28.4 pg (27.0-32.0); MCHC 31.8 g/dL (32.0-37.0); MCV 89.2 FL (80.0-97.0); NRBC Per 100 WBC 0 X 10*3/uL (0.00-0.01); Platelet Count 173 X 10*3/uL (140-440); RBC 2.96 X 10*6/uL (4.10-5.20); RDW 15.2 % (11.5-14.5); WBC 6.92 X 10*3/uL (4.50-10.00)
[2025-04-13 08:11] LABS: ALT 12 U/L (8-44); AST 20 U/L (13-35); Albumin 3.6 g/dL (3.8-4.9); Albumin/Globulin Ratio 2.40 Ratio (1.60-3.17); Alkaline Phosphatase 85 U/L (41-126); Anion Gap 9.10 mmol/L (4.00-12.00); BUN/Creat Ratio 7.00 Ratio (12.00-20.00); Blood Urea Nitrogen 3.5 mg/dL (9.0-27.0); Calcium 8.5 mg/dL (8.7-10.3); Carbon Dioxide 28.9 mmol/L (21.6-31.8); Chloride 105 mmol/L (96-109); Globulin 1.5 g/dL (1.6-3.3); Glucose 104 mg/dL (70-110); Magnesium 1.6 mg/dL (1.5-2.4); Potassium 3.5 mmol/L (3.5-5.5); Sodium 143 mmol/L (135-145); Total Protein 5.1 g/dL (6.2-8.2)
[2025-04-13] MEDS: SENNOSIDES-DOCUSATE SODIUM 1 EACH TAB PO SCH (09:14)
[2025-04-13] MEDS: MIDAZOLAM 2 MG/2 ML VIAL IV ONE (14:02)
--- NOTE | 2025-04-13 14:24 | P.PN ---
Subjective Progress Note Date: 04/13/25 Hospital Course: Patient is a pleasant 69-year-old female with a past medical history of hypertension, hypothyroidism, fibromyalgia, GERD, anxiety with depression and asthma/COPD. She is currently admitted under orthospine surgery team status post C6-C7 corpectomy and C5-T1 anterior cervical arthrodesis with removal of anterior cervical hardware and insertion of anterior cervical instrumentation and biomechanical cage device C5-T1. We were consulted for medical management t hroughout hospitalization. Patient is scheduled for second part of surgical procedure of C5-T1 posterior cervical decompression fusion later today. Physical exam: Patient seen and fully evaluated at bedside this morning. She was resting comfortably at this time with family members at bedside. Patient awaiting to be taken down for second part of surgical procedure of C5-T1 posterior cervical decompression fusion later today. Patient reports having somewhat of a better night with better pain control but still reports moderate postoperative pain. She reports also having a headache and was just medicated for pain. She denies any other complaints, questions, concerns, or needs at this time. Vital signs reviewed and stable. General: Nontoxic, no distress and appears stated age. Derm: Skin warm and dry, normal coloration for ethnicity. Head: Atraumatic, normocephalic and symmetric. Hard c-collar in place. PEGGY drain in place. Eyes: EOM's intact, no lid lag, and anicteric sclera Mouth: no lip lesions, mucus membranes moist Cardiovascular: regular rate and rhythm with normal S1S2, no murmur, positive posterior tibial pulses bilaterally, and cap refill < 2 seconds. Lungs: Respirations even, regular, and unlabored on room air. Lungs CTA bilaterally, no rhonchi, no rales, no wheezing, and no accessory muscle usage. Abdominal: soft, nontender to palpation, no guarding, no appreciable organomegaly Ext: ROM intact. No gross muscle atrophy, no edema, no contractures Neuro: Speech clear, face symmetrical and CN II-XII grossly intact with no noted focal neuro deficits Psych: Alert and oriented to person, place, time, and situation. Appropriate and pleasant affect. Assessment and Plan of Care: Status post cervical C6-C7 corpectomy and C5-T1 anterior cervical arthrodesis with removal of anterior cervical hardware and insertion of anterior cervical instrumentation and biomechanical cage device C5-T1 Management per primary admitting orthospine surgery team including DVT prophylaxis, wound/dressing/drain management, pain management, and advancement of activity. - Patient is scheduled for second part of surgical procedure of C5-T1 posterior cervical decompression fusion later today. Currently DVT prophylaxis with VIVIANA hose and SCDs Encourage use of incentive spirometry 10-15 times hourly while awake. Acute postoperative blood loss anemia Preoperative hemoglobin 11.1 and current hemoglobin of 8.4. No active bleeding noted. No need for transfusion or further intervention at this time. Hypomagnesemia Magnesium 1.6 orders placed for magnesium sulfate 2 g IVPB. Hypertension Monitor vital signs and continue daily medication regimen with atenolol 50 mg daily Hypothyroidism Continue levothyroxine 88 mcg daily. Anxiety and depression Continue Elavil 100 mg nightly and Zoloft 100 mg daily. Data and imaging reviewed: Repeat morning labs reviewed. CBC showing normocytic anemia with hemoglobin of 8.4. BMP unremarkable. Blood glucose 104. Magnesium slightly low at 1.6. Vital signs reviewed. Blood pressure 108/68, heart rate 60, respiratory rate 18, temp 98.4 F, and SpO2 of 94% on room Thank you for allowing us to participate in the care of this pleasant patient. Do not hesitate to contact us with questions. Someone can be reached from the [facility] group all hours of the day at [phone] or via iCracked. Patient was seen independently by Nurse Pracitioner. This document was prepared using [employer] dictation software. Please allow for errors in commercial production editor, while rare they do occur. Demarco Gregory NP rendered care for this patient independently, reviewed the findings and plan as documented in the note above and agree with plan. I did not physically speak with or examine the patient on this date. Objective - Vital Signs Vital signs: Vital Signs Temp 98.4 F 04/13/25 07:18 Pulse 60 04/13/25 07:18 Resp 18 04/13/25 07:18 BP 108/68 04/13/25 07:18 Pulse Ox 94 L 04/13/25 07:18 FiO2 Intake & Output 04/12/25 04/13/25 04/13/25 18:59 06:59 18:59 Intake Total 720 540 Output Total 0 Balance 720 540 Intake: Oral 720 540 Output: Drainage 0 Anterior Neck 0 Other: Voiding Method Toilet # Voids 3 4 # Bowel Movements 2 - Labs CBC & Chem 7: 04/13/25 03:10 04/13/25 03:10 Labs: Abnormal Lab Results - Last 24 Hours (Table) 04/13/25 04/13/25 Range/Units 03:10 03:10 RBC 2.96 L (4.10-5.20) X 10*6/uL Hgb 8.4 L (12.0-15.0) g/dL Hct 26.4 L (37.2-46.3) % MCHC 31.8 L (32.0-37.0) g/dL RDW 15.2 H (11.5-14.5) % BUN 3.5 L (9.0-27.0) mg/dL Creatinine 0.5 L (0.6-1.5) mg/dL BUN/Creatinine Ratio 7.00 L (12.00-20.00) Ratio Calcium 8.5 L (8.7-10.3) mg/dL Total Protein 5.1 L (6.2-8.2) g/dL Albumin 3.6 L (3.8-4.9) g/dL Globulin 1.5 L (1.6-3.3) g/dL
[2025-04-13] MEDS: IV FLUID CONTINUATION 1,000 ML IV ONE ×2 (14:28)
[2025-04-13] MEDS: ONDANSETRON 4 MG/2 ML VIAL IVP STA (14:38)
[2025-04-13] MEDS: DEXAMETHASONE SOD PHOSPHATE 4 MG/ML 1 ML VIAL IVP STA (14:38)
--- NOTE | 2025-04-13 15:18 | P.PN ---
Progress Note - Text Progress Note Date: 04/13/25 GAYLE CAMPA RONAL [facility] PROVIDER: WILMER Apr 13, 2025 2:45?PM SPINE SURGERY CLINICAL AND RISK REVIEW MARILYNN HENDRICKSON is a 69 YO FEMALE presenting for evaluation of NECK PAIN, FRACTURE, HARDWARE FAILURE AND MYELOPATHY WITH PROGRESSIVE NEUROLOGICAL CHANGES. It was my pleasure to have seen and examined MARILYNN HENDRICKSON . In our visit today we have had a chance to go over subjective complaints, physical examination findings and treatments including the natural course his tory without intervention and various interventional options. The patient's imaging demonstrates the following findings: FRACTURED C6 AND C7 BODIES WITH HARDWARE FAILURE, MIGRATION INTO THE SPINAL C ANAL AND SEVERE STENOSIS FIRST STAGE CORRECTED WITH THIS WITH GOOD DECOMPRESSION, CORPECTOMY OF C6 AND C7 WITH CAGE PLATE AND SCREWS IN GOOD POSITION ON POST OP CT. On a physical exam,MARILYNN HENDRICKSON demonstrates the following findings: CONTINUED NECK PAIN BETTER UE SX LESS NUMBNESS/TINGLING LESS WEAKNESS I have explained to the patient that as their condition progresses it will cause further neurological deficits and eventual paralysis. Based on the patients imaging, physical exam, and the rapid progression and disabling nature of their symptoms, at this time I recommend surgery in the form of a: C5-T1 OR 2 POSTERIOR DECOMPRESSION AND STABILIZED FUSION . I discussed the risk and benefits of this procedure at length with MARILYNN HENDRICKSON . The patient has agreed to consider pursuing the procedure above mentioned. Prior to surgery, they should follow up with her PCP (Cardio, ID, IM etc) for clearance. Questions were invited and answered, and the patient wishes to proceed as outlined below. Currently, I am recommending: C5-T1 OR 2 POSTERIOR DECOMPRESSION AND STABILIZED FUSION Obtain appropriate presurgical workup and clearances as discussed with the p atient. Review of surgical risks and benefits as well as an educational packet on the proposed surgical procedure. Risks: All surgical procedures come with inherent risks, including those related to positioning, anesthesia, intraoperative findings, and postoperative complications. It is important to understand that surgery does not come with any guarantee of a successful outcome as complications and adverse events are always possible. The patient was given a handout in the office today discussing the surgical procedure and risks associated with the intervention, both of which were discussed with the patient. These risks include but are not limited to the following: Experiencing same, different or even worse symptoms in back, neck, arms, or legs compared to before surgery. Requiring further surgery or other forms of treatment presently or at some time in the future at same or other levels of the intended spine surgery. On an extreme but fortunately relatively rare basis severe complications such as blindness, stroke, heart attack, temporary and/or permanent nerve injury, paralysis, coma, or may occur, sometimes without known explanation. Surgical complications may include but are not limited to risk of infection, fluid accumulation in the surgical dissection site, including a seroma or hematoma, that requires additional surgery, wound drainage, bleeding, new numbness or weakness, vision changes/loss, spinal fluid leakage, non-healing and/or infected incision, headaches, difficulty or inability to swallow, hoarseness, hemopneumothorax, pneumothorax, impotence, retrograde ejaculation, vaginal dryness; injury to nerves, spinal cord, blood vessels, lymphatics or other vital organs (i.e., bowel injury, injury to the great vessels); heterotopic bone formation; complications related to the hardware such as screws, rods, cages including misplaced hardware, device failure, instrumentation at the wrong spine level, hardware fracture/breakage, or hardware loosening; vertebral failure of the spinal column above or below the newly placed hardware; retained surgical instrumentations or devices and the need for further surgery. Medical risks of the planned spine surgery include but are not limited to generalized Infections to the whole body or local areas outside of the surgical site (sepsis), heart attack, bleeding, anaphylaxis, meningitis, seizure, e pilepsy, hearing loss, burn johnson, laceration of the head or other areas of the body, bruising, hypersensitivity of the skin, bladder over distension; allergic reaction; shoulder injury related to positioning; fat, blood and air clots to other areas of the body like heart, lungs, brain; failure of internal organs such as lungs, kidneys, liver and excessive bleeding. If blood transfusions are necessary, note that transfusions may cause intolerance reactions such as anaphylaxis or other complex reactions. Despite best efforts, the results of spine surgery might not heal in terms of bone, soft tissues such as skin, fascia, ligaments, and joints. Additionally, in order to achieve best possible results, spine surgery may be carried out beyond the initially planned levels and involve decompression, fusion including insertion of hardware at levels other than the original intended area of surgical interest change some portions of the procedure in order to ensure the best possible outcomes. With spine surgery and spinal fusion, there are different off label uses of instrumentation (devices, implants and hardware) as well as biological substances (bone morphogenic proteins, demineralized bone matrix) as well as using extra bone from allograft sources (i.e. cadaver bone) or autograft (iliac crest bone, ribs, or the spine itself). The patient has been given information about these practices and their inherent risks and benefits. The patient has had a chance to review all the listed information, has been given print outs detailing this information, and has had all his/her questions answered to their satisfaction. It was my pleasure to have seen and examined MARILYNN HENDRICKSON . In our visit today we have had a chance to go over my understanding of our patient's current condition, the natural course history without intervention and various interventional options. Questions were invited and answered, and the patient wishes to proceed as outlined above. I have seen and examined the patient for 25 minutes and we have spent more than 50% of the time in repeat and detailed counseling about the patient's condition, its natural course history without and as much as can be predicted with surgery and re-review of various surgical treatment options. In conclusion, MARILYNN HENDRICKSON and their family requested we proceed with the above suggested surgery and are willing to accept risks and limitations of the suggested surgery as the nature of the disease process and our best attempts at treatment for the condition. In our visit today the patient and I have had a chance to go over my understanding of their current condition, the natural course history without intervention and various interventional options. Questions were invited and answered, and the patient wishes to proceed as outlined above. I will be sure to keep you updated after the patient returns here for further follow-up. Thank you again for your referral. Please do not hesitate to contact me if you have any further questions. Signed and authenticated by: Apr 13, 2025 3:00?PM EDT DO Gayle Guerrero [facility] Minim[facility]vasive [facility] [address] [place] [address] D[facility] [place] [address] This document is confidential, intended only for the named recipient(s) and may contain information that is privileged or exempt from disclosure under applicable law. If you are not the intended recipient(s), you are notified that the dissemination, distribution or copying of this information is strictly pro hibited. If you received this message in error, please notify the sender then delete this message.
[2025-04-13] MEDS ORDERED: KETAMINE HCL IN 0.9 % NACL 50 MG/5 ML SYRINGE ONE (16:04)
[2025-04-13] MEDS ORDERED: fentaNYL (PF) 50 MCG/ML 2 ML AMP ONE (16:04)
[2025-04-13] MEDS ORDERED: PROPOFOL 10 MG/ML 20 ML VIAL IV ONE (16:04)
[2025-04-13] MEDS ORDERED: ePHEDrine 50 MG/ML 1 ML VIAL ONE (16:04)
[2025-04-13] MEDS ORDERED: TRANEXAMIC 1,000 MG/100ML-NACL PREMIX BAG ONE (16:04)
[2025-04-13] MEDS ORDERED: LIDOCAINE 1% INJ 10MG/ML (20 ML MDV) ONE (16:04)
[2025-04-13] MEDS ORDERED: NEOSTIGMINE 1 MG/ML 10 ML VIAL ONE (16:04)
[2025-04-13] MEDS ORDERED: ROCURONIUM 10 MG/ML (5 ML VIAL) IV ONE (16:04)
[2025-04-13] MEDS ORDERED: DENOSUMAB 60 MG/ML SQ ONE (16:04)
[2025-04-13] MEDS ORDERED: SUCCINYLCHOLINE CHLORIDE 200 MG/10 ML VIAL IV ONE (16:04)
[2025-04-13] MEDS ORDERED: MIDAZOLAM 2 MG/2 ML VIAL ONE (16:04)
[2025-04-13 16:25] LABS: HCT 26.0 % (37.2-46.3); HGB 8.7 g/dL (12.0-15.0); MCH 29.4 pg (27.0-32.0); MCHC 33.5 g/dL (32.0-37.0); MCV 87.8 fL (80.0-97.0); Platelet Count 175 10*3/uL (140-440); RBC 2.96 10*6/uL (4.10-5.20); RDW 15.0 % (11.5-14.5); WBC 6.44 10*3/uL (4.50-10.00)
[2025-04-13 16:33] LABS: African American GFR (CKD) >90 (>60 ml/min/1.73 sqM); Anion Gap 6 mmol/L; Blood Urea Nitrogen 4 mg/dL (7-17); Calcium 8.9 mg/dL (8.4-10.2); Carbon Dioxide 30 mmol/L (22-30); Chloride 102 mmol/L (98-107); Glucose 85 mg/dL (74-99); Non-African American GFR(CKD) >90 (>60 ml/min/1.73 sqM); Potassium 3.7 mmol/L (3.5-5.1); Sodium 138 mmol/L (137-145)
[2025-04-13] MEDS: THROMBIN (BOVINE) 5,000 UNIT VIAL TOPICAL ONE (16:58)
[2025-04-13] MEDS: ceFAZolin 3,000 MG in SODIUM CHLORIDE 0.9% IRRIGATIO 3,000 ML IRRIGATION ONE (16:58)
[2025-04-13] MEDS: GENTAMICIN 80 MG in SODIUM CHLORIDE 0.9% IRRIGATIO 3,000 ML IRRIGATION ONE (16:58)
[2025-04-13] MEDS: VANCOMYCIN 1,000 MG VIAL MISCELLANE ONE (18:06)
[2025-04-13] MEDS: LACTATED RINGERS 1,000 ML IV ONE (18:23)
--- NOTE | 2025-04-13 18:31 | P.OP ---
Date of Procedure: 04/13/25 Preoperative Diagnosis: 1. C7 FRACTURE VERTEBRAL BODY WITH HARDWARE FAILURE 2. C6 FRACTURE VERTEBRAL BODY WITH HARDWARE FAILURE 3. CERVICAL MYELOPATHY 4. UE AND LE WEAKNESS 5. GAIT INSTABILITY Postoperative Diagnosis: 1. C7 FRACTURE VERTEBRAL BODY WITH HARDWARE FAILURE 2. C6 FRACTURE VERTEBRAL BODY WITH HARDWARE FAILURE 3. CERVICAL MYELOPATHY 4. UE AND LE WEAKNESS 5. GAIT INSTABILITY Procedure(s) Performed: 1. C5-T2 POSTEROLATERAL STABILIZED FUSION 2. C5-T2 POSTERIOR SEGMENTAL INSTRUMENTATION 3. C5-T1 BILATERAL LAMINECTOMY, FACETECTOMY AND FORAMINOTOMY FOR COMPLETE NEURAL DECOMPRESSION USE OF IONM Implants: [employer] [place] POSTERIOR CERVICAL SYSTEM DBM, AUTOGRAFT Anesthesia: GETA Surgeon: Michele Martinez Cook Fish Eggs #1: Mari Thompson (WAS PRESENT AND ASSISTED WITH ALL ASPECTS OF THE CASE FROM POSITION TO DRESSING PLACEMENT) Estimated Blood Loss (ml): 200 IV fluids (ml): 1,500 Urine output (ml): 250 Pathology: none sent Condition: stable Disposition: PACU Indications for Procedure: MARILYNN HENDRICKSON is a 69 YO FEMALE presenting for evaluation of NECK PAIN, FRACTURE, HARDWARE FAILURE AND MYELOPATHY WITH PROGRESSIVE NEUROLOGICAL CHANGES. It was my pleasure to have seen and examined MARILYNN HENDRICKSON . In our visit today we have had a chance to go over subjective complaints, physical examination findings and treatments including the natural course history without intervention and various interventional options. The patient's imaging demonstrates the following findings: FRACTURED C6 AND C7 BODIES WITH HARDWARE FAILURE, MIGRATION INTO THE SPINAL CANAL AND SEVERE STENOSIS FIRST STAGE CORRECTED WITH THIS WITH GOOD DECOMPRESSION, CORPECTOMY OF C6 AND C7 WITH CAGE PLATE AND SCREWS IN GOOD POSITION ON POST OP CT. On a physical exam,MARILYNN HENDRICKSON demonstrates the following findings: CONTINUED NECK PAIN BETTER UE SX LESS NUMBNESS/TINGLING LESS WEAKNESS I have explained to the patient that as their condition progresses it will cause further neurological deficits and eventual paralysis. Based on the patients imaging, physical exam, and the rapid progression and disabling nature of their symptoms, at this time I recommend surgery in the form of a: C5-T1 OR 2 POSTERIOR DECOMPRESSION AND STABILIZED FUSION . I discussed the risk and benefits of this procedure at length with MARILYNN HENDRICKSON . The patient has agreed to consider pursuing the procedure above mentioned. Prior to surgery, they should follow up with her PCP (Cardio, ID, IM etc) for clearance. Questions were invited and answered, and the patient wishes to proceed as outlined below. Currently, I am recommending: C5-T1 OR 2 POSTERIOR DECOMPRESSION AND STABILIZED FUSION Description of Procedure: C5-T1 decompression and fusion Lesion removal. The patient was seen and examined in the preoperative area. All preoperative protocols were followed. Informed consent was obtained, risks and benefits of the procedure were discussed at length. Risks including bleeding infection damage to the surrounding tissue and risk of reoperation were discussed with the patient. Risk of anesthesia up to and including was discussed with the patient. These are outlined in the risk review. They were willing to accept these risks and all of the risks of surgery. The patient was given a weight- based dose of antibiotics in the form of 2 g Ancef. The patient was seen and evaluated by the anesthesia team who deemed them fit for surgery. The site was marked, the patient was willing to proceed with the procedure. The patient was transferred to the operative suite by the Department of anesthesia. They were then drifted off to sleep by the department anesthesia and GETA was performed. The patient tolerated this well. pre-positioning motors were obtained.Bean in place from the floor. Once confirmation of lines and ventilation [place] head clamp was placed on the patient and secured and the patient was transferred to a [prone Sascha table very carefully] with the [place] head porter the head was secured and placed into an optimal position x- ray confirmed this position. Post-positioning motors remained stable. All bony prominences including wrists, elbows, axilla, chest, hips, and thighs, and feet were padded very well. Special attention was paid to the genitalia and these were padded accordingly. SCDs were placed on bilateral lower extremities and were connected. Arms were well padded and placed tucked at his side thumbs down. Shoulders were gently taped down to the table.. Once in position, again we confirmed good ventilation capabilities and that lines were running appropriately. The patient's posterior cervical spine was then exposed. 1010s were placed outlining the incision site. Standard alcohol was used to clean the incision site and allowed to dry. C-arm was used to biomark the patient and confirm level for incision which was marked with a skin marker. Operative b riefing was performed with all teams and everyone in agreement to proceed. The patient was then prepped and draped in a normal sterile fashion. Timeout was then performed and all parties were in agreement with the procedure to be performed. Midline skin incision made over the previously bio-marked area and dissection taken down midline to the SP of C2-T2. Subperiosteal dissection taken out over the lamina and lateral masses of C5-C7 and TVP of T1. Once exposure complete, the wound was irrigated and the C-arm brought in for imaging. We then proceeded to the T1 and T2 pedicle screws bilateral. A highspeed kenny was used to remove the facet joint of C7 and to create a starting point for T1 and similarly. Pedicle finder was then passed into T1 and imaging taken to confirm placement this was then removed and a tap placed ball-tipped probe was then placed and 4 olvera of pedicle fell with good bottom. The screw was then measured and placed into T1 This is repeated on the contralateral side as well as for T2. Imaging confirmed good placement of all 4 thoracic screws. Attention was then drawn to the lateral mass screws were then drilled to 12 mm and placed at each level from C5-7. Each had a good bite. Rods were then sized and selected and cut to length. They were bent accordingly and lordosis and to fit the occiput plate. These were then secured into T1 and T2 and then reduced into C5. All set screws were placed and were then finally tightened and the position. Bilateral laminectomy, facetectomy and foraminotomies were then done from C5-T1 using high speed kenny, kerrison rongeur and up-biting curette. Bilateral laminotomy troughs were made with kenny followed by curette to release ligamentum. Rongure was then used to gently remove the lamina and facets post eriorly without issues. Meticulous hemostasis was performed after. Motors were run before and after decompression and they remain stable. Good pulsations of the cord were noted after decompression. Foraminotomies then performed with kerrison rongeur and clean up of the laminectomy site. The wound was then copiously irrigated with 3 L of Ancef irrigation followed by 3 L of gentamicin irrigation followed by 3 L of normal sterile saline. Facet joints were drilled at each level to allow for fusion Surgicel was placed over the dura. MagnetOs were placed in the posterior lateral gutters along with autograft.. This was impacted into position for fusion. 2 g of powdered vancomycin was then placed deep within the wound and a deep drain was placed. We then proceeded with layered closure first in the deep fascia with #1 PDS then in the deep fascia followed by a running #1 stratafix. 0 Vicryl was used in the deep subq fascia and an 0 PDS stratafix used in the subdermal layer. Skin saeed then approximated skin edges. The wound edges approximated very well. The wound was then cleaned and dressed sterilely with an operative foam dressing 4 x 4 and Tegaderm. The drain had good suction. The patient was placed in a hard cervical collar. The patient was transferred back to their hospital bed atraumatically. [place] head clamp was removed and pin sites were clear. The drain continued to hold suction. The patient was placed in a hard collar. The patient was then awakened and extubated by the department of anesthesia having tolerated the procedure very well with no complications. They were transferred to the postoperative care unit in stable condition.
--- NOTE | 2025-04-13 18:43 | XR ---
EXAMINATION TYPE: XR cervical spine limited, OR guidance operating room Intraoperative/procedural flu oroscopic services were provided. CLINICAL INDICATION:Female, 69 years old with history of C5-T1 Fusion; , PH FINDINGS: Postsurgical changes from posterior C5-T1 decompression. Recent revision anterior cervical discectomy with fixation hardware. No radiographic evidence for complication. Total fluoroscopy time is 15 seconds. DAP: 0.5334 Gycm2 Please see the operative/procedural note for further details. [facility], , 04/13/2025 6:40 PM
[2025-04-13] MEDS: fentaNYL (PF) 50 MCG/ML 2 ML AMP IVP PRN (18:52)
[2025-04-13] MEDS: MEPERIDINE 50 MG/ML SYRINGE IVP STA (19:31)
[2025-04-13] MEDS: diphenhydrAMINE 50 MG/ML 1 ML VIAL IVP STA (19:53)
[2025-04-13] MEDS: MAGNESIUM SULFATE-D5W PMX 1 GM in DEXTROSE/WATER 1 100ML.BAG IVPB SCH (21:45)
--- NOTE | 2025-04-14 04:28 | CT ---
EXAM: CT Cervical Spine Without Intravenous Contrast CLINICAL HISTORY: ITS.REASON CT Reason: s/p C5-T2 posterior decompression and fusion TECHNIQUE: Axial computed tomography images of the cervical spine without intravenous contrast. CTDI is 11.1 mGy and DLP is 314.9 mGy-cm. This CT exam was performed using one or more of the following dose reduction techniques: automated exposure control, adjustment of the mA and/or kV according to patient size, and/or use of iterative reconstruction technique. COMPARISON: 04/10/2025 FINDINGS: Status post multilevel laminectomies, corpectomy and fusion. Significant soft tissue emphysema and swelling in the laminectomy bed with drain in place. No large fluid collections identified. IMPRESSION: Status post multilevel laminectomies, corpectomy and fusion. Significant soft tissue emphysema and swelling in the laminectomy bed with drain in place. No large fluid collections identified.
--- NOTE | 2025-04-14 08:41 | P.PN ---
Subjective Progress Note Date: 04/14/25 Principal diagnosis: 1. C7 vertebra fracture with hardware failure 2. Myelopathy 3. Upper extremity paresthesias 4. Weakness in bilateral upper extremities Patient seen and examined this morning. Patient is resting comfortably in bed. She does report that her pain is greater in the posterior cervical spine than she had expected. Informed patient that medications will be adjusted and encouraged her to utilize ice packs along her shoulders. Surgical dressing to the anterior cervical spine is clean dry and intact with PEGGY drain present. Surgical dressing to the posterior spine is clean dry and intact with Hemovac drain present. Hard cervical collar is intact. Patient does report that is difficult to reach with her upper extremities due to the pain in her upper back. Continue to encourage patient to change her position as tolerated. Objective - Vital Signs Vital signs: Vital Signs Temp 98.2 F 04/14/25 07:14 Pulse 78 04/14/25 07:14 Resp 15 04/14/25 07:14 BP 148/73 04/14/25 07:14 Pulse Ox 97 04/14/25 07:14 FiO2 Intake & Output 04/13/25 04/14/25 04/14/25 18:59 06:59 18:59 Intake Total 1951 600 Output Total 450 500 Balance 1502 100 Weight 61.8 kg Intake: IV 1951 600 Output: Drainage 0 Anterior Neck 0 Urine 250 500 Estimated Blood Loss 200 Other: Voiding Method Toilet # Voids 1 - Exam Physical Examination General: The patient is awake and alert, in no acute distress. Skin: Skin is warm and dry with no obvious rashes or lesions. Surgical incision to the anterior cervical spine, dressing is clean dry and intact with PEGGY drain present. Surgical incision to the posterior cervical spine, dressing is clean dry and intact with Hemovac drain present. Eye: Pupils are equal, round and reactive to light, extra-ocular movements are intact; there is normal conjunctiva bilaterally. Neck: The neck is supple, there is mild tenderness around the incision site. Limited range of motion due to surgery and placement of the [place] hard cervical collar. Respiratory: Respirations are non-labored. Gastrointestinal: Soft, non-distended, non-tender abdomen. Back: There is no tenderness to palpation in the midline, paralumbar, parathoracic or buttocks region. There is no obvious deformity. Musculoskeletal: ROM limited secondary to pain and stiffness from surgical procedure. Right: Shoulder abduction 4/5, elbow flexors 4/5, wrist dorsiflexors 4/5. finger abductor 4/5, building energy consultant 4/5, hip flexor 5/5, knee flexor 5/5, ankle dorsiflexor 5/5, ankle plantarflexion 5/5 and extensor hallucis 5/5 Left: Shoulder abduction 4/5, elbow flexors 4/5, wrist dorsiflexors 4/5. finger abductor 4/5, building energy consultant 4/5, hip flexor 5/5, knee flexor 5/5, ankle dorsiflexor 5/5, ankle plantarflexion 5/5 and extensor hallucis 5/5. Neurological: CN 2-12 intact. There are no obvious motor or sensory deficits. Movement and coordination equal and intact. Sensory exam to light touch intact C5-T1 and intact from L2-S1. Reflexes 2/4 in bilateral upper and lower extremities. Negative Hoffmans, babinski, and clonus signs. Psychiatric: Cooperative, appropriate mood & affect, normal judgment. - Labs CBC & Chem 7: 04/13/25 14:08 04/13/25 14:08 Labs: Abnormal Lab Results - Last 24 Hours (Table) 04/13/25 04/13/25 Range/Units 14:08 14:08 RBC 2.96 L (4.10-5.20) 10*6/uL Hgb 8.7 L (12.0-15.0) g/dL Hct 26.0 L (37.2-46.3) % RDW 15.0 H (11.5-14.5) % BUN 4 L (7-17) mg/dL Creatinine 0.38 L (0.52-1.04) mg/dL Assessment and Plan Assessment: Postop day 3: Revision C5-T1 anterior cervical discectomy and fusion, with C6-C7 corpectomy Postop day 1: C5-T2 posterior decompression and fusion Plan: -Appreciate building energy consultant and team management. -Activity: Ambulate QID, OOB all meals, up and about, limit lifting bending twisting to less than 5 lbs. Use walker or cane if needed for stability. -Daily PT/OT, increase ambulation strength and balance. - Hard cervical collar on at all times. -Pain control: Medications have been modified. -Meds: reviewed -GI ppx: senna, Miralax -DVT PPX: heparin -Hygiene: Maintain incision clean and dry. -Drains: Maintain for now. Continue to monitor and record output q shift. -Encourage IS 10x/hr -Dispo: Clinically pending *I reviewed and discussed this case with my attending Dr. Martinez, whom has reviewed this chart and films and is in agreement with assessment and plan of care as outlined above. I have personally seen and examined the patient, performed the documentation and the assessment and plan as written. Number of minutes spent on the visit: 20m.
[2025-04-14 09:34] LABS: HCT 25.9 % (37.2-46.3); HGB 8.3 g/dL (12.0-15.0); MCH 28.1 pg (27.0-32.0); MCHC 32.0 g/dL (32.0-37.0); MCV 87.8 FL (80.0-97.0); NRBC Per 100 WBC 0 X 10*3/uL (0.00-0.01); Platelet Count 200 X 10*3/uL (140-440); RBC 2.95 X 10*6/uL (4.10-5.20); RDW 15.0 % (11.5-14.5); WBC 10.95 X 10*3/uL (4.50-10.00)
[2025-04-14 09:44] LABS: Magnesium 2.1 mg/dL (1.5-2.4)
[2025-04-14 09:47] LABS: BUN/Creat Ratio 10.75 Ratio (12.00-20.00); Blood Urea Nitrogen 4.3 mg/dL (9.0-27.0); Glucose 99 mg/dL (70-110)
[2025-04-14] MEDS: KETOROLAC 15 MG/ML 1 ML VIAL IVP SCH (09:47)
[2025-04-14 09:48] LABS: ALT 15 U/L (8-44); AST 43 U/L (13-35); Albumin 3.5 g/dL (3.8-4.9); Albumin/Globulin Ratio 2.33 Ratio (1.60-3.17); Alkaline Phosphatase 84 U/L (41-126); Anion Gap 10.80 mmol/L (4.00-12.00); Calcium 8.0 mg/dL (8.7-10.3); Carbon Dioxide 28.2 mmol/L (21.6-31.8); Chloride 100 mmol/L (96-109); Globulin 1.5 g/dL (1.6-3.3); Potassium 3.9 mmol/L (3.5-5.5); Sodium 139 mmol/L (135-145); Total Protein 5.0 g/dL (6.2-8.2)
--- NOTE | 2025-04-14 12:53 | P.PN ---
Subjective Progress Note Date: 04/14/25 Hospital Course: Patient is a pleasant 69-year-old female with a past medical history of hypertension, hypothyroidism, fibromyalgia, GERD, anxiety with depression and asthma/COPD. She is currently admitted under orthospine surgery team status post C6-C7 corpectomy and C5-T1 anterior cervical arthrodesis with removal of anterior cervical hardware and insertion of anterior cervical instrumentation and biomechanical cage device C5-T1. We were consulted for medical management t hroughout hospitalization. Patient is scheduled for second part of surgical procedure of C5-T1 posterior cervical decompression fusion later today. Physical exam: Patient seen and fully evaluated at bedside this morning. She is day 1 postop second cervical surgery. She reports having moderate to severe postoperative pain. She reports the pain in the back of her neck radiates down into her shoulders. She continues to deny having any numbness or tingling in her extre mities. She denies headaches this morning. She reports she is doing better swallowing and eating today. She denies having any nausea or vomiting. Urinating without difficulties and last bowel movement was yesterday. Vital signs reviewed and stable. General: Nontoxic, no distress and appears stated age. Derm: Skin warm and dry, normal coloration for ethnicity. Head: Atraumatic, normocephalic and symmetric. Hard c-collar in place. PEGGY drain in place anteriorly and Hemovac drain in place posteriorly. Eyes: EOM's intact, no lid lag, and anicteric sclera Mouth: no lip lesions, mucus membranes moist Cardiovascular: regular rate and rhythm with normal S1S2, no murmur, positive posterior tibial pulses bilaterally, and cap refill < 2 seconds. Lungs: Respirations even, regular, and unlabored on room air. Lungs CTA bilaterally, no rhonchi, no rales, no wheezing, and no accessory muscle usage. Abdominal: soft, nontender to palpation, no guarding, no appreciable organomegaly Ext: ROM intact. No gross muscle atrophy, no edema, no contractures Neuro: Speech clear, face symmetrical and CN II-XII grossly intact with no noted focal neuro deficits Psych: Alert and oriented to person, place, time, and situation. Appropriate and pleasant affect. Assessment and Plan of Care: Status post staged two part cervical surgeries with placement of biomechanical cage Management per primary admitting orthospine surgery team including DVT prophylaxis, wound/dressing/drain management, pain management, and advancement of activity. - Patient is scheduled for second part of surgical procedure of C5-T1 posterior cervical decompression fusion later today. Currently DVT prophylaxis with VIVIANA hose and SCDs Encourage use of incentive spirometry 10-15 times hourly while awake. Acute postoperative blood loss anemia Preoperative hemoglobin 11.1 and current hemoglobin of 8.4. No active bleeding noted. No need for transfusion or further intervention at this time. Hypomagnesemia Magnesium 1.6 orders placed for magnesium sulfate 2 g IVPB. Hypertension Monitor vital signs and continue daily medication regimen with atenolol 50 mg daily Hypothyroidism Continue levothyroxine 88 mcg daily. Anxiety and depression Continue Elavil 100 mg nightly and Zoloft 100 mg daily. Data and imaging reviewed: Repeat morning labs reviewed. CBC showing normocytic anemia with hemoglobin of 8.3. BMP unremarkable. Blood glucose 104. Magnesium 2.1. Vital signs reviewed. Blood pressure 148/73, heart rate 78, respiratory rate 15, temp 98.2 F, and SpO2 of 97% on room air. Thank you for allowing us to participate in the care of this pleasant patient. Do not hesitate to contact us with questions. Someone can be reached from the [facility] hospitalist group all hours of the day at [phone] or via [employer] serve. Patient was seen independently by Nurse Pracitioner. This document was prepared using [employer] dictation software. Please allow for errors in rough rice grader, while rare they do occur. Demarco Gregory NP rendered care for this patient independently, reviewed the findings and plan as documented in the note above and agree with plan. I did not physically speak with or examine the patient on this date. Objective - Vital Signs Vital signs: Vital Signs Temp 98.2 F 04/14/25 07:14 Pulse 78 04/14/25 07:14 Resp 15 04/14/25 07:14 BP 148/73 04/14/25 07:14 Pulse Ox 97 04/14/25 07:14 FiO2 Intake & Output 04/13/25 04/14/25 04/14/25 18:59 06:59 18:59 Intake Total 1951 600 Output Total 450 500 Balance 1502 100 Weight 61.8 kg Intake: IV 1951 600 Output: Drainage 0 Anterior Neck 0 Urine 250 500 Estimated Blood Loss 200 Other: Voiding Method Toilet # Voids 1 - Labs CBC & Chem 7: 04/14/25 04:12 04/14/25 04:12 Labs: Abnormal Lab Results - Last 24 Hours (Table) 04/13/25 04/13/25 Range/Units 14:08 14:08 RBC 2.96 L (4.10-5.20) 10*6/uL Hgb 8.7 L (12.0-15.0) g/dL Hct 26.0 L (37.2-46.3) % RDW 15.0 H (11.5-14.5) % BUN 4 L (7-17) mg/dL Creatinine 0.38 L (0.52-1.04) mg/dL
--- NOTE | 2025-04-15 09:13 | P.PN ---
Subjective Progress Note Date: 04/15/25 Hospital Course: Patient is a pleasant 69-year-old female with a past medical history of hypertension, hypothyroidism, fibromyalgia, GERD, anxiety with depression and asthma/COPD. She is currently admitted under orthospine surgery team status post C6-C7 corpectomy and C5-T1 anterior cervical arthrodesis with removal of anterior cervical hardware and insertion of anterior cervical instrumentation and biomechanical cage device C5-T1. We were consulted for medical management t hroughout hospitalization. Patient is scheduled for second part of surgical procedure of C5-T1 posterior cervical decompression fusion later today. Physical exam: Patient seen and fully evaluated at bedside this morning. She is day 2 postop second cervical surgery. She reports continuing to have moderate postoperative pain in her posterior neck radiating down into her back and bilateral shoulder blade. She states the pain medications help but do not resolve. She continues to deny having any numbness or tingling in her extremities. She denies headaches this morning. She reports she is doing better swallowing and eating today. She denies having any nausea or vomiting. Urinating without difficulties and last bowel movement was 2 days ago. Hemovac drain was removed this morning. Vital signs reviewed and stable. General: Nontoxic, no distress and appears stated age. Derm: Skin warm and dry, normal coloration for ethnicity. Head: Atraumatic, normocephalic and symmetric. Hard c-collar in place. PEGGY drain in place. Eyes: EOM's intact, no lid lag, and anicteric sclera Mouth: no lip lesions, mucus membranes moist Cardiovascular: regular rate and rhythm with normal S1S2, no murmur, positive posterior tibial pulses bilaterally, and cap refill < 2 seconds. Lungs: Respirations even, regular, and unlabored on room air. Lungs CTA bilaterally, no rhonchi, no rales, no wheezing, and no accessory muscle usage. Abdominal: soft, nontender to palpation, no guarding, no appreciable organomegaly Ext: ROM intact. No gross muscle atrophy, no edema, no contractures Neuro: Speech clear, face symmetrical and CN II-XII grossly intact with no noted focal neuro deficits Psych: Alert and oriented to person, place, time, and situation. Appropriate and pleasant affect. Assessment and Plan of Care: Status post staged two part cervical surgeries with placement of biomechanical cage Management per primary admitting orthospine surgery team including DVT prophylaxis, wound/dressing/drain management, pain management, and advancement of activity. - Patient is scheduled for second part of surgical procedure of C5-T1 posterior cervical decompression fusion later today. Currently DVT prophylaxis with VIVIANA hose and SCDs Encourage use of incentive spirometry 10-15 times hourly while awake. Acute postoperative blood loss anemia Preoperative hemoglobin 11.1 and current hemoglobin of 7.9. No active bleeding noted. No need for transfusion or further intervention at this time. Hypomagnesemia Resolved after replacement with repeat morning magnesium of 1.8. Hypertension Monitor vital signs and continue daily medication regimen with atenolol 50 mg daily Hypothyroidism Continue levothyroxine 88 mcg daily. Anxiety and depression Continue Elavil 100 mg nightly and Zoloft 100 mg daily. Data and imaging reviewed: Repeat morning labs reviewed. CBC showing normocytic anemia with hemoglobin of 7.9 BMP unremarkable. Blood glucose 116. Magnesium 1.8. Vital signs reviewed. Blood pressure 148/82, heart rate 68, respiratory rate 18, temp 98.2 F, and SpO2 of 96% on room air. Thank you for allowing us to participate in the care of this pleasant patient. Do not hesitate to contact us with questions. Someone can be reached from the [facility] hospitalist group all hours of the day at [phone] or via [employer]. Patient was seen independently by Nurse Pracitioner. This document was prepared using [employer] dictation software. Please allow for errors in loan examiner, while rare they do occur. Demarco Gregory NP rendered care for this patient independently, reviewed the findings and plan as documented in the note above and agree with plan. I did not physically speak with or examine the patient on this date. Objective - Vital Signs Vital signs: Vital Signs Temp 98.2 F 04/15/25 07:08 Pulse 68 04/15/25 07:08 Resp 18 04/15/25 07:08 BP 148/82 04/15/25 07:08 Pulse Ox 96 04/15/25 07:08 FiO2 Intake & Output 04/14/25 04/15/25 04/15/25 18:59 06:59 18:59 Intake Total 540 Output Total 2225 835 Balance -2225 -295 Intake: Oral 540 Output: Drainage 35 Anterior Neck 35 Urine 2225 800 Uretheral (Bean) 800 Other: Voiding Method Toilet Toilet - Labs CBC & Chem 7: 04/15/25 03:36 04/15/25 03:36 Labs: Abnormal Lab Results - Last 24 Hours (Table) 04/14/25 04/14/25 Range/Units 04:12 04:12 WBC 10.95 H (4.50-10.00) X 10*3/uL RBC 2.95 L (4.10-5.20) X 10*6/uL Hgb 8.3 L (12.0-15.0) g/dL Hct 25.9 L (37.2-46.3) % RDW 15.0 H (11.5-14.5) % BUN 4.3 L (9.0-27.0) mg/dL Creatinine 0.4 L (0.6-1.5) mg/dL BUN/Creatinine Ratio 10.75 L (12.00-20.00) Ratio Calcium 8.0 L (8.7-10.3) mg/dL Total Bilirubin 0.2 L (0.3-1.2) mg/dL AST 43 H (13-35) U/L Total Protein 5.0 L (6.2-8.2) g/dL Albumin 3.5 L (3.8-4.9) g/dL Globulin 1.5 L (1.6-3.3) g/dL
[2025-04-15 09:28] LABS: HCT 24.7 % (37.2-46.3); HGB 7.9 g/dL (12.0-15.0); MCH 28.6 pg (27.0-32.0); MCHC 32.0 g/dL (32.0-37.0); MCV 89.5 FL (80.0-97.0); NRBC Per 100 WBC 0 X 10*3/uL (0.00-0.01); Platelet Count 193 X 10*3/uL (140-440); RBC 2.76 X 10*6/uL (4.10-5.20); RDW 15.4 % (11.5-14.5); WBC 7.28 X 10*3/uL (4.50-10.00)
--- NOTE | 2025-04-15 09:40 | P.PN ---
Subjective Progress Note Date: 04/15/25 Principal diagnosis: 1. C7 vertebra fracture with hardware failure 2. Myelopathy 3. Upper extremity paresthesias 4. Weakness in bilateral upper extremities Patient seen and examined this morning. Patient is resting comfortably in bed. She reports her pain is better managed. Surgical dressing to the anterior cervical spine is clean dry and intact with PEGGY drain present. Surgical dressing to the posterior spine is clean dry and intact with Hemovac drain present. Hard cervical collar is intact. Continue to encourage patient to change her position as tolerated. Objective - Vital Signs Vital signs: Vital Signs Temp 98.2 F 04/15/25 07:08 Pulse 68 04/15/25 07:08 Resp 18 04/15/25 07:08 BP 148/82 04/15/25 07:08 Pulse Ox 96 04/15/25 07:08 FiO2 Intake & Output 04/14/25 04/15/25 04/15/25 18:59 06:59 18:59 Intake Total 540 Output Total 2225 835 Balance -2225 -295 Intake: Oral 540 Output: Drainage 35 Anterior Neck 35 Urine 2225 800 Uretheral (Bean) 800 Other: Voiding Method Toilet Toilet - Exam Physical Examination General: The patient is awake and alert, in no acute distress. Skin: Skin is warm and dry with no obvious rashes or lesions. Surgical incision to the anterior cervical spine, dressing is clean dry and intact with PEGGY drain present. Surgical incision to the posterior cervical spine, dressing is clean dry and intact with Hemovac drain present. Eye: Pupils are equal, round and reactive to light, extra-ocular movements are intact; there is normal conjunctiva bilaterally. Neck: The neck is supple, there is mild tenderness around the incision site. Limited range of motion due to surgery and placement of the [place] hard cervical collar. Respiratory: Respirations are non-labored. Gastrointestinal: Soft, non-distended, non-tender abdomen. Back: There is no tenderness to palpation in the midline, paralumbar, parathoracic or buttocks region. There is no obvious deformity. Musculoskeletal: ROM limited secondary to pain and stiffness from surgical procedure. Right: Shoulder abduction 4/5, elbow flexors 4/5, wrist dorsiflexors 4/5. finger abductor 4/5, operations management trainee 4/5, hip flexor 5/5, knee flexor 5/5, ankle dorsiflexor 5/5, ankle plantarflexion 5/5 and extensor hallucis 5/5 Left: Shoulder abduction 4/5, elbow flexors 4/5, wrist dorsiflexors 4/5. finger abductor 4/5, operations management trainee 4/5, hip flexor 5/5, knee flexor 5/5, ankle dorsiflexor 5/5, ankle plantarflexion 5/5 and extensor hallucis 5/5. Neurological: CN 2-12 intact. There are no obvious motor or sensory deficits. Movement and coordination equal and intact. Sensory exam to light touch intact C5-T1 and intact from L2-S1. Reflexes 2/4 in bilateral upper and lower extremities. Negative Hoffmans, babinski, and clonus signs. Psychiatric: Cooperative, appropriate mood & affect, normal judgment. - Labs CBC & Chem 7: 04/15/25 03:36 04/14/25 04:12 Labs: Abnormal Lab Results - Last 24 Hours (Table) 04/14/25 04/14/25 Range/Units 04:12 04:12 WBC 10.95 H (4.50-10.00) X 10*3/uL RBC 2.95 L (4.10-5.20) X 10*6/uL Hgb 8.3 L (12.0-15.0) g/dL Hct 25.9 L (37.2-46.3) % RDW 15.0 H (11.5-14.5) % BUN 4.3 L (9.0-27.0) mg/dL Creatinine 0.4 L (0.6-1.5) mg/dL BUN/Creatinine Ratio 10.75 L (12.00-20.00) Ratio Calcium 8.0 L (8.7-10.3) mg/dL Total Bilirubin 0.2 L (0.3-1.2) mg/dL AST 43 H (13-35) U/L Total Protein 5.0 L (6.2-8.2) g/dL Albumin 3.5 L (3.8-4.9) g/dL Globulin 1.5 L (1.6-3.3) g/dL Assessment and Plan Assessment: Postop day 4: Revision C5-T1 anterior cervical discectomy and fusion, with C6-C7 corpectomy Postop day 2: C5-T2 posterior decompression and fusion Plan: -Appreciate child welfare consultant and team management. -Activity: Ambulate QID, OOB all meals, up and about, limit lifting bending twisting to less than 5 lbs. Use walker or cane if needed for stability. -Daily PT/OT, increase ambulation strength and balance. - Hard cervical collar on at all times. -Pain control: Medications have been modified. -Meds: reviewed -GI ppx: senna, Miralax -DVT PPX: heparin -Hygiene: Maintain incision clean and dry. -Drains: Maintain for now. Continue to monitor and record output q shift. -Encourage IS 10x/hr -Dispo: Clinically pending *I reviewed and discussed this case with my attending Dr. Martinez, whom has reviewed this chart and films and is in agreement with assessment and plan of care as outlined above. I have personally seen and examined the patient, performed the documentation and the assessment and plan as written. Number of minutes spent on the visit: 20m.
[2025-04-15 10:08] LABS: Anion Gap 9.70 mmol/L (4.00-12.00); BUN/Creat Ratio 9.00 Ratio (12.00-20.00); Blood Urea Nitrogen 3.6 mg/dL (9.0-27.0); Calcium 8.3 mg/dL (8.7-10.3); Carbon Dioxide 29.3 mmol/L (21.6-31.8); Chloride 103 mmol/L (96-109); Glucose 116 mg/dL (70-110); Magnesium 1.8 mg/dL (1.5-2.4); Potassium 3.6 mmol/L (3.5-5.5); Sodium 142 mmol/L (135-145)
[2025-04-16 08:57] LABS: HCT 24.7 % (37.2-46.3); HGB 7.8 g/dL (12.0-15.0); MCH 28.1 pg (27.0-32.0); MCHC 31.6 g/dL (32.0-37.0); MCV 88.8 FL (80.0-97.0); NRBC Per 100 WBC 0 X 10*3/uL (0.00-0.01); Platelet Count 208 X 10*3/uL (140-440); RBC 2.78 X 10*6/uL (4.10-5.20); RDW 15.3 % (11.5-14.5); WBC 6.27 X 10*3/uL (4.50-10.00)
[2025-04-16 09:04] LABS: Anion Gap 8.80 mmol/L (4.00-12.00); BUN/Creat Ratio 10.00 Ratio (12.00-20.00); Blood Urea Nitrogen 4.0 mg/dL (9.0-27.0); Calcium 8.3 mg/dL (8.7-10.3); Carbon Dioxide 30.2 mmol/L (21.6-31.8); Chloride 102 mmol/L (96-109); Glucose 107 mg/dL (70-110); Magnesium 1.7 mg/dL (1.5-2.4); Potassium 3.2 mmol/L (3.5-5.5); Sodium 141 mmol/L (135-145)
--- NOTE | 2025-04-16 11:55 | P.PN ---
Subjective Progress Note Date: 04/16/25 Principal diagnosis: 1. C7 vertebra fracture with hardware failure 2. Myelopathy 3. Upper extremity paresthesias 4. Weakness in bilateral upper extremities Patient seen and examined this morning. Patient was resting comfortably in bed. Patient was assisted to the bedside and tolerated activity well. She does report a sharp shooting pain on the right lateral cervical spine with increased activity. Surgical dressing to the anterior cervical spine, edges are well-approximated with glue intact. PEGGY drain has been removed and new dressing has been applied. Surgical incision to the posterior cervical spine, edges are well-approximated with saeed intact. Hemovac drain has been removed and new dressing has been applied. Incisions may be left open to air once there is no drainage. Patient has been ambulatory in room to restroom. Patient states she is looking forward to going home tomorrow. No acute concerns. Objective - Vital Signs Vital signs: Vital Signs Temp 98.2 F 04/16/25 06:53 Pulse 85 04/16/25 06:53 Resp 16 04/16/25 06:53 BP 139/83 04/16/25 06:53 Pulse Ox 97 04/16/25 06:53 FiO2 Intake & Output 04/15/25 04/16/25 04/16/25 18:59 06:59 18:59 Intake Total 120 Output Total 15 Balance -15 120 Intake: Oral 120 Output: Drainage 15 Anterior Neck 15 Other: Voiding Method Toilet Toilet # Voids 2 1 - Exam Physical Examination General: The patient is awake and alert, in no acute distress. Skin: Skin is warm and dry with no obvious rashes or lesions. Surgical incision to the anterior cervical spine, edges approximated with glue intact. PEGGY drain has been removed. Surgical incision to the posterior cervical spine, edges well-approximated with saeed intact. Hemovac drain has been removed. New dressings have been applied. Eye: Pupils are equal, round and reactive to light, extra-ocular movements are intact; there is normal conjunctiva bilaterally. Neck: The neck is supple, there is mild tenderness around the incision site. Limited range of motion due to surgery and placement of the [place] hard cervical collar. Respiratory: Respirations are non-labored. Gastrointestinal: Soft, non-distended, non-tender abdomen. Back: There is no tenderness to palpation in the midline, paralumbar, parathoracic or buttocks region. There is no obvious deformity. Musculoskeletal: ROM limited secondary to pain and stiffness from surgical procedure. Right: Shoulder abduction 4/5, elbow flexors 4/5, wrist dorsiflexors 4/5. finger abductor 4/5, tobacco sieve operator 4/5, hip flexor 5/5, knee flexor 5/5, ankle dorsiflexor 5/5, ankle plantarflexion 5/5 and extensor hallucis 5/5 Left: Shoulder abduction 4/5, elbow flexors 4/5, wrist dorsiflexors 4/5. finger abductor 4/5, tobacco sieve operator 4/5, hip flexor 5/5, knee flexor 5/5, ankle dorsiflexor 5/5, ankle plantarflexion 5/5 and extensor hallucis 5/5. Neurological: CN 2-12 intact. There are no obvious motor or sensory deficits. Movement and coordination equal and intact. Sensory exam to light touch intact C5-T1 and intact from L2-S1. Reflexes 2/4 in bilateral upper and lower extremities. Negative Hoffmans, babinski, and clonus signs. Psychiatric: Cooperative, appropriate mood & affect, normal judgment. - Labs CBC & Chem 7: 04/16/25 05:36 04/16/25 05:36 Labs: Abnormal Lab Results - Last 24 Hours (Table) 04/16/25 04/16/25 Range/Units 05:36 05:36 RBC 2.78 L (4.10-5.20) X 10*6/uL Hgb 7.8 L (12.0-15.0) g/dL Hct 24.7 L (37.2-46.3) % MCHC 31.6 L (32.0-37.0) g/dL RDW 15.3 H (11.5-14.5) % Potassium 3.2 L (3.5-5.5) mmol/L BUN 4.0 L (9.0-27.0) mg/dL Creatinine 0.4 L (0.6-1.5) mg/dL BUN/Creatinine Ratio 10.00 L (12.00-20.00) Ratio Calcium 8.3 L (8.7-10.3) mg/dL Assessment and Plan Assessment: Postop day 5: Revision C5-T1 anterior cervical discectomy and fusion, with C6-C7 corpectomy Postop day 3: C5-T2 posterior decompression and fusion Plan: -Appreciate enterprise resource planning consultant and team management. -Activity: Ambulate QID, OOB all meals, up and about, limit lifting bending twisting to less than 5 lbs. Use walker or cane if needed for stability. -Daily PT/OT, increase ambulation strength and balance. - Hard cervical collar on at all times. -Pain control: Medications have been modified. -Meds: reviewed -GI ppx: senna, Miralax -DVT PPX: heparin -Hygiene: Maintain incision clean and dry. -Encourage IS 10x/hr -Dispo: Anticipate discharge home with home care, tomorrow 04/17/2025. *I reviewed and discussed this case with my attending Dr. Martinez, whom has reviewed this chart and films and is in agreement with assessment and plan of care as outlined above. I have personally seen and examined the patient, performed the documentation and the assessment and plan as written. Number of minutes spent on the visit: 20m.
[2025-04-16] MEDS: FERROUS SULFATE 325 MG TAB PO SCH (12:44)
[2025-04-16] MEDS: oxyCODONE-APAP 5-325MG 1 EACH TAB PO PRN (12:48)
--- NOTE | 2025-04-16 15:29 | P.PN ---
Subjective Progress Note Date: 04/16/25 Hospital Course: Patient is a pleasant 69-year-old female with a past medical history of hypertension, hypothyroidism, fibromyalgia, GERD, anxiety with depression and asthma/COPD. She is currently admitted under orthospine surgery team status post C6-C7 corpectomy and C5-T1 anterior cervical arthrodesis with removal of anterior cervical hardware and insertion of anterior cervical instrumentation and biomechanical cage device C5-T1. We were consulted for medical management t hroughout hospitalization. Patient is scheduled for second part of surgical procedure of C5-T1 posterior cervical decompression fusion later today. Physical exam: Patient seen and fully evaluated at bedside this morning. She is day 3 postop second cervical surgery. She reports continuing to have moderate postoperative pain in her posterior neck radiating down into her back and bilateral shoulder blade. She states the pain medications help but do not resolve. She continues to deny having any numbness or tingling in her extremities. She denies headaches this morning. Hemovac drain was not removed yesterday as patient ambulated and had more reported output so it was left in place. Patient reports she is eating better but still sticks to soft foods. She states her last bowel movement was about 3 or 4 days ago, bowel sounds present and she denies having any nausea or vomiting and tolerating oral intake. Vital signs reviewed and stable. General: Nontoxic, no distress and appears stated age. Derm: Skin warm and dry, normal coloration for ethnicity. Head: Atraumatic, normocephalic and symmetric. Hard c-collar in place. PEGGY and Hemovac drains in place. Eyes: EOM's intact, no lid lag, and anicteric sclera Mouth: no lip lesions, mucus membranes moist Cardiovascular: regular rate and rhythm with normal S1S2, no murmur, positive posterior tibial pulses bilaterally, and cap refill < 2 seconds. Lungs: Respirations even, regular, and unlabored on room air. Lungs CTA bilaterally, no rhonchi, no rales, no wheezing, and no accessory muscle usage. Abdominal: soft, nontender to palpation, no guarding, no appreciable organomegaly Ext: ROM intact. No gross muscle atrophy, no edema, no contractures Neuro: Speech clear, face symmetrical and CN II-XII grossly intact with no noted focal neuro deficits Psych: Alert and oriented to person, place, time, and situation. Appropriate and pleasant affect. Assessment and Plan of Care: Status post staged two part cervical surgeries with placement of biomechanical cage Management per primary admitting orthospine surgery team including DVT prophylaxis, wound/dressing/drain management, pain management, and advancement of activity. Currently DVT prophylaxis with VIVIANA hose and SCDs Encourage use of incentive spirometry 10-15 times hourly while awake. Acute postoperative blood loss anemia Preoperative hemoglobin 11.1 and current hemoglobin of 7.9. No active bleeding noted. No need for transfusion or further intervention at this time. Hypomagnesemia Resolved after replacement with repeat morning magnesium of 1.8. Hypertension Monitor vital signs and continue daily medication regimen with atenolol 50 mg daily Hypothyroidism Continue levothyroxine 88 mcg daily. Anxiety and depression Continue Elavil 100 mg nightly and Zoloft 100 mg daily. Data and imaging reviewed: Repeat morning labs reviewed. CBC showing normocytic anemia with hemoglobin of 7.8 BMP showing mild hypokalemia with potassium of 3.2. Blood glucose 107. Magnesium slightly low at 1.7. Vital signs reviewed. Blood pressure 139/83, heart rate 85, respiratory rate 16, temp 98.2 F, and SpO2 of 97% on room air. Thank you for allowing us to participate in the care of this pleasant patient. Do not hesitate to contact us with questions. Someone can be reached from the [facility] hospitalist group all hours of the day at [phone] or via [email or web address]. Patient was seen independently by Nurse Pracitioner. This document was prepared using [employer] dictation software. Please allow for errors in assessment coordinator, while rare they do occur. Demarco Gregory NP rendered care for this patient independently, reviewed the findings and plan as documented in the note above and agree with plan. I did not physically speak with or examine the patient on this date. Objective - Vital Signs Vital signs: Vital Signs Temp 98.2 F 04/16/25 06:53 Pulse 85 04/16/25 06:53 Resp 16 04/16/25 06:53 BP 139/83 04/16/25 06:53 Pulse Ox 97 04/16/25 06:53 FiO2 Intake & Output 04/15/25 04/16/25 04/16/25 18:59 06:59 18:59 Intake Total 120 Output Total 15 Balance -15 120 Intake: Oral 120 Output: Drainage 15 Anterior Neck 15 Other: Voiding Method Toilet Toilet # Voids 2 1 - Labs CBC & Chem 7: 04/16/25 05:36 04/16/25 05:36 Labs: Abnormal Lab Results - Last 24 Hours (Table) 04/15/25 04/15/25 04/16/25 Range/Units 03:36 03:36 05:36 RBC 2.76 L 2.78 L (4.10-5.20) X 10*6/uL Hgb 7.9 L 7.8 L (12.0-15.0) g/dL Hct 24.7 L 24.7 L (37.2-46.3) % MCHC 31.6 L (32.0-37.0) g/dL RDW 15.4 H 15.3 H (11.5-14.5) % BUN 3.6 L (9.0-27.0) mg/dL Creatinine 0.4 L (0.6-1.5) mg/dL BUN/Creatinine Ratio 9.00 L (12.00-20.00) Ratio Glucose 116 H (70-110) mg/dL Calcium 8.3 L (8.7-10.3) mg/dL
[2025-04-16] MEDS: MAGNESIUM OXIDE 400 MG TAB PO STA (15:51)
[2025-04-16] MEDS: POTASSIUM CHLORIDE ER 20 MEQ TAB.ER PO STA (15:51)
[2025-04-17 07:47] VITALS: BP 152/81; PULSE 78; RESP 18; TEMP 98.1
[2025-04-17 08:18] LABS: HCT 23.3 % (37.2-46.3); HGB 7.5 g/dL (12.0-15.0); MCH 28.8 pg (27.0-32.0); MCHC 32.2 g/dL (32.0-37.0); MCV 89.6 FL (80.0-97.0); NRBC Per 100 WBC 0 X 10*3/uL (0.00-0.01); Platelet Count 248 X 10*3/uL (140-440); RBC 2.60 X 10*6/uL (4.10-5.20); RDW 15.6 % (11.5-14.5); WBC 5.94 X 10*3/uL (4.50-10.00)
[2025-04-17 08:32] LABS: Anion Gap 9.10 mmol/L (4.00-12.00); BUN/Creat Ratio 8.20 Ratio (12.00-20.00); Blood Urea Nitrogen 4.1 mg/dL (9.0-27.0); Calcium 8.3 mg/dL (8.7-10.3); Carbon Dioxide 28.9 mmol/L (21.6-31.8); Chloride 104 mmol/L (96-109); Glucose 103 mg/dL (70-110); Magnesium 1.8 mg/dL (1.5-2.4); Potassium 3.7 mmol/L (3.5-5.5); Sodium 142 mmol/L (135-145)
--- NOTE | 2025-04-17 09:04 | P.PN ---
Subjective Progress Note Date: 04/17/25 Principal diagnosis: 1. C7 vertebra fracture with hardware failure 2. Myelopathy 3. Upper extremity paresthesias 4. Weakness in bilateral upper extremities Patient seen and examined this morning. Patient is resting comfortably in bed. She does report that her pain is managed on current regimen. Surgical incision to the anterior and posterior cervical spine, dressings are clean dry and intact. Robert hard collar is intact. Discharge instructions have been discussed. Patient is looking forward to discharge later this morning. No acute concerns. Objective - Vital Signs Vital signs: Vital Signs Temp 98.1 F 04/17/25 07:04 Pulse 78 04/17/25 07:04 Resp 18 04/17/25 07:04 BP 152/81 04/17/25 07:04 Pulse Ox 97 04/17/25 07:04 FiO2 Intake & Output 04/16/25 04/17/25 04/17/25 18:59 06:59 18:59 Intake Total 1160 Balance 1160 Intake: Oral 1160 Other: Voiding Method Toilet Toilet # Voids 2 3 # Bowel Movements 1 - Exam Physical Examination General: The patient is awake and alert, in no acute distress. Skin: Skin is warm and dry with no obvious rashes or lesions. Surgical incision to the anterior and posterior cervical spine, dressings are clean dry and intact. Eye: Pupils are equal, round and reactive to light, extra-ocular movements are intact; there is normal conjunctiva bilaterally. Neck: The neck is supple, there is mild tenderness around the incision site. Limited range of motion due to surgery and placement of the Robert hard cervical collar. Respiratory: Respirations are non-labored. Gastrointestinal: Soft, non-distended, non-tender abdomen. Back: There is no tenderness to palpation in the midline, paralumbar, parathoracic or buttocks region. There is no obvious deformity. Musculoskeletal: ROM limited secondary to pain and stiffness from surgical procedure. Right: Shoulder abduction 4/5, elbow flexors 4/5, wrist dorsiflexors 4/5. finger abductor 4/5, inspector mechanical 4/5, hip flexor 5/5, knee flexor 5/5, ankle dorsiflexor 5/5, ankle plantarflexion 5/5 and extensor hallucis 5/5 Left: Shoulder abduction 4/5, elbow flexors 4/5, wrist dorsiflexors 4/5. finger abductor 4/5, inspector mechanical 4/5, hip flexor 5/5, knee flexor 5/5, ankle dorsiflexor 5/5, ankle plantarflexion 5/5 and extensor hallucis 5/5. Neurological: CN 2-12 intact. There are no obvious motor or sensory deficits. Movement and coordination equal and intact. Sensory exam to light touch intact C5-T1 and intact from L2-S1. Reflexes 2/4 in bilateral upper and lower extremities. Negative Hoffmans, babinski, and clonus signs. Psychiatric: Cooperative, appropriate mood & affect, normal judgment. - Labs CBC & Chem 7: 04/17/25 03:39 04/17/25 03:39 Labs: Abnormal Lab Results - Last 24 Hours (Table) 04/16/25 04/16/25 04/17/25 Range/Units 05:36 05:36 03:39 RBC 2.78 L 2.60 L (4.10-5.20) X 10*6/uL Hgb 7.8 L 7.5 L (12.0-15.0) g/dL Hct 24.7 L 23.3 L (37.2-46.3) % MCHC 31.6 L (32.0-37.0) g/dL RDW 15.3 H 15.6 H (11.5-14.5) % Potassium 3.2 L (3.5-5.5) mmol/L BUN 4.0 L (9.0-27.0) mg/dL Creatinine 0.4 L (0.6-1.5) mg/dL BUN/Creatinine Ratio 10.00 L (12.00-20.00) Ratio Calcium 8.3 L (8.7-10.3) mg/dL 04/17/25 Range/Units 03:39 RBC (4.10-5.20) X 10*6/uL Hgb (12.0-15.0) g/dL Hct (37.2-46.3) % MCHC (32.0-37.0) g/dL RDW (11.5-14.5) % Potassium (3.5-5.5) mmol/L BUN 4.1 L (9.0-27.0) mg/dL Creatinine 0.5 L (0.6-1.5) mg/dL BUN/Creatinine Ratio 8.20 L (12.00-20.00) Ratio Calcium 8.3 L (8.7-10.3) mg/dL Assessment and Plan Assessment: Postop day 6: Revision C5-T1 anterior cervical discectomy and fusion, with C6-C7 corpectomy Postop day 4: C5-T2 posterior decompression and fusion Plan: -Appreciate health and safety consultant and team management. -Activity: Ambulate QID, OOB all meals, up and about, limit lifting bending twisting to less than 5 lbs. Use walker or cane if needed for stability. -Daily PT/OT, increase ambulation strength and balance. - Hard cervical collar on at all times. -Pain control: Medications have been modified. -Meds: reviewed -GI ppx: senna, Miralax -DVT PPX: heparin -Hygiene: Maintain incision clean and dry. -Encourage IS 10x/hr -Dispo: Discharge home with home care later this morning. *I reviewed and discussed this case with my attending Dr. Martinez, whom has reviewed this chart and films and is in agreement with assessment and plan of care as outlined above. I have personally seen and examined the patient, performed the documentation and the assessment and plan as written. Number of minutes spent on the visit: 20m.
--- NOTE | 2025-04-17 09:44 | P.DS ---
Providers Date of admission: 04/12/25 13:46 Expected date of discharge: 04/17/25 Attending physician: Michele Martinez DO Consults: 04/10/25 17:09 Consult Physician Routine Consulting Provider: Saul Ball Consult Reason/Comments: medical management s/p revision c5-c7 acdf, C6 corpectomy Do you want consulting provider notified?: Yes Primary care physician: [facility] Course: Hospital Course: The patient was evaluated preoperatively and found to have the diagnosis of C7 fracture. They underwent appropriate preoperative care and were willing to und ergo the intended procedure. They underwent a successful C5-T1 ACDF with C6-C7 corpectomy and C5-T2 posterior decompression and fusion, were recovered appropriately and sent to the floor. While on the floor they worked with physical therapy, occupational therapy and nursing to enhance their recovery experience. Their pain was well controlled through their stay and they were started on appropriate medications, DVT ppx modalities, activity and dietary needs. Daily labs were monitored closely, and transfusions were only used when necessary. Medicine as well as other consulting services have made their input and have helped with our team approach and multidisciplinary care. PT milestones have been met and passed and they have made the recommendation of home with home care for this patient and treating providers agree with this care path. The patient will be discharged home with appropriate medications, instructions and follow-up information and in stable condition. Patient Condition at Discharge: Good Plan - Discharge Summary Discharge Rx Participant: Yes New Discharge Prescriptions: New Cyclobenzaprine [Flexeril] 5 mg PO TID PRN #40 tablet PRN Reason: Muscle Spasm Naproxen [Naprosyn] 500 mg PO BID #28 tablet cefaDROXiL [Duricef] 500 mg PO Q12HR #10 cap oxyCODONE-APAP 5-325MG [Percocet 5-325 mg] 1 tab PO Q4HR PRN #42 tab PRN Reason: Pain Continue Butalb/APAP/Caff 50-325-40Mg [Fioricet 50-325-40] 1 tab PO TID atenoloL [Tenormin] 50 mg PO PC-SUPPER Amitriptyline HCl [Elavil] 100 mg PO HS Cholecalciferol (Vitamin D3) [Vitamin D3] 4,000 unit PO DAILY Sertraline [Zoloft] 100 mg PO QAM Levothyroxine Sodium [Synthroid] 88 mcg PO Q2D Ivermectin [Ivermectin 1%] 1 applic TOPICAL HS Amoxicillin 500 mg PO DIRECTED PRN PRN Reason: DENTAL WORK metroNIDAZOLE 0.75% CREAM [Metrocream 0.75%] 1 applic TOPICAL DAILY ALPRAZolam [Xanax] 0.25 mg PO DAILY PRN PRN Reason: Anxiety Omeprazole 40 mg PO DAILY Discharge Medication List Amitriptyline HCl [Elavil] 100 mg PO HS 10/14/18 [History] Butalb/APAP/Caff 50-325-40Mg [Fioricet 50-325-40] 1 tab PO TID 10/14/18 [History] Cholecalciferol (Vitamin D3) [Vitamin D3] 4,000 unit PO DAILY 10/14/18 [History] atenoloL [Tenormin] 50 mg PO PC-SUPPER 10/14/18 [History] Levothyroxine Sodium [Synthroid] 88 mcg PO Q2D 10/31/19 [History] Sertraline [Zoloft] 100 mg PO QAM 10/31/19 [History] Ivermectin [Ivermectin 1%] 1 applic TOPICAL HS 02/02/23 [History] ALPRAZolam [Xanax] 0.25 mg PO DAILY PRN 04/28/23 [History] Amoxicillin 500 mg PO DIRECTED PRN 04/28/23 [History] metroNIDAZOLE 0.75% CREAM [Metrocream 0.75%] 1 applic TOPICAL DAILY 10/13/24 [History] Omeprazole 40 mg PO DAILY 03/16/25 [History] Cyclobenzaprine [Flexeril] 5 mg PO TID PRN #40 tablet 04/16/25 [Rx] Naproxen [Naprosyn] 500 mg PO BID #28 tablet 04/16/25 [Rx] cefaDROXiL [Duricef] 500 mg PO Q12HR #10 cap 04/16/25 [Rx] oxyCODONE-APAP 5-325MG [Percocet 5-325 mg] 1 tab PO Q4HR PRN #42 tab 04/16/25 [Rx] Follow up Appointment(s)/Referral(s): Claudia Glynn MD [Primary Care Provider] - 1 Week Michele Martinez DO [Doctor of Osteopathic Medicine] - 2 Weeks Discharge Disposition: HOME WITH HOME HEALTH SERVICES
--- NOTE | 2025-04-17 14:20 | P.PN ---
Subjective Progress Note Date: 04/17/25 Hospital Course: Patient is a pleasant 69-year-old female with a past medical history of hypertension, hypothyroidism, fibromyalgia, GERD, anxiety with depression and asthma/COPD. She is currently admitted under orthospine surgery team status post C6-C7 corpectomy and C5-T1 anterior cervical arthrodesis with removal of anterior cervical hardware and insertion of anterior cervical instrumentation and biomechanical cage device C5-T1. We were consulted for medical management t hroughout hospitalization. Patient is scheduled for second part of surgical procedure of C5-T1 posterior cervical decompression fusion later today. Physical exam: Patient seen and fully evaluated at bedside this morning. She is day 4 postop second cervical surgery. She reports postoperative pain is much better controlled today. Hemovac and PEGGY drain were removed this morning. Patient denies having any headache, lightheadedness, dizziness, chest pain, palpitations, shortness of breath, abdominal pain, nausea, vomiting, or experiencing any numbness/tingling/weakness/swelling in her extremities. She reports having a normal bowel movement this morning and urinating without any difficulties. Vital signs reviewed and stable. General: Nontoxic, no distress and appears stated age. Derm: Skin warm and dry, normal coloration for ethnicity. Head: Atraumatic, normocephalic and symmetric. Hard c-collar in place. PEGGY and Hemovac drains in place. Eyes: EOM's intact, no lid lag, and anicteric sclera Mouth: no lip lesions, mucus membranes moist Cardiovascular: regular rate and rhythm with normal S1S2, no murmur, positive posterior tibial pulses bilaterally, and cap refill < 2 seconds. Lungs: Respirations even, regular, and unlabored on room air. Lungs CTA kd aterally, no rhonchi, no rales, no wheezing, and no accessory muscle usage. Abdominal: soft, nontender to palpation, no guarding, no appreciable organomegaly Ext: ROM intact. No gross muscle atrophy, no edema, no contractures Neuro: Speech clear, face symmetrical and CN II-XII grossly intact with no noted focal neuro deficits Psych: Alert and oriented to person, place, time, and situation. Appropriate and pleasant affect. Assessment and Plan of Care: Status post staged two part cervical surgeries with placement of biomechanical cage Management per primary admitting orthospine surgery team including DVT prophylaxis, wound/dressing/drain management, pain management, and advancement of activity. Currently DVT prophylaxis with VIVIANA hose and SCDs Encourage use of incentive spirometry 10-15 times hourly while awake. Acute postoperative blood loss anemia Preoperative hemoglobin 11.1 and current hemoglobin of 7.5. No active bleeding noted. No need for transfusion or further intervention at this time. Hypomagnesemia Resolved after replacement with repeat morning magnesium of 1.8. Hypertension Monitor vital signs and continue daily medication regimen with atenolol 50 mg daily Hypothyroidism Continue levothyroxine 88 mcg daily. Anxiety and depression Continue Elavil 100 mg nightly and Zoloft 100 mg daily. Data and imaging reviewed: Repeat morning labs reviewed. CBC showing normocytic anemia with hemoglobin o f 7.5 BMP showing resolution of hypokalemia with potassium of 3.7. Blood glucose 103. Magnesium 1.8. Vital signs reviewed. Blood pressure 152/81, heart rate 78, respiratory rate 18, temp 98.1 F, and SpO2 of 97% on room air. Thank you for allowing us to participate in the care of this pleasant patient. Do not hesitate to contact us with questions. Someone can be reached from the [facility] [place] [facility]ist group all hours of the day at [phone] or via [employer]. Patient was seen independently by Nurse Pracitioner. This document was prepared using [employer] dictation software. Please allow for errors in residential youth counselor, while rare they do occur. Demarco Gregory NP rendered care for this patient independently, reviewed the findings and plan as documented in the note above and agree with plan. I did not physically speak with or examine the patient on this date. Objective - Vital Signs Vital signs: Vital Signs Temp 98.1 F 04/17/25 07:04 Pulse 78 04/17/25 07:04 Resp 18 04/17/25 07:04 BP 152/81 04/17/25 07:04 Pulse Ox 97 04/17/25 07:04 FiO2 Intake & Output 04/16/25 04/17/25 04/17/25 18:59 06:59 18:59 Intake Total 1160 Balance 1160 Intake: Oral 1160 Other: Voiding Method Toilet Toilet # Voids 2 3 # Bowel Movements 1 - Labs CBC & Chem 7: 04/17/25 03:39 04/17/25 03:39 Labs: Abnormal Lab Results - Last 24 Hours (Table) 04/16/25 04/16/25 04/17/25 Range/Units 05:36 05:36 03:39 RBC 2.78 L 2.60 L (4.10-5.20) X 10*6/uL Hgb 7.8 L 7.5 L (12.0-15.0) g/dL Hct 24.7 L 23.3 L (37.2-46.3) % MCHC 31.6 L (32.0-37.0) g/dL RDW 15.3 H 15.6 H (11.5-14.5) % Potassium 3.2 L (3.5-5.5) mmol/L BUN 4.0 L (9.0-27.0) mg/dL Creatinine 0.4 L (0.6-1.5) mg/dL BUN/Creatinine Ratio 10.00 L (12.00-20.00) Ratio Calcium 8.3 L (8.7-10.3) mg/dL
== END 2025-04-17 10:45 | disposition home or self-care (01) | DRG 402 ==
LOC: OR 10:56 → 4SSUR 16:56 → OR 04-12 13:46
PROVIDERS: ADMIT Orthopaedic Surgery; ATTEND Orthopaedic Surgery
PROC: 0RG20A0 Fusion of 2 or more Cervical Vertebral Joints with Interbody Fusion Device, Anterior Approach, Anterior Column, Open Approach (ICD-10-PCS; 2025-04-10)
PROC: 0RG2070 Fusion of 2 or more Cervical Vertebral Joints with Autologous Tissue Substitute, Anterior Approach, Anterior Column, Open Approach (ICD-10-PCS; 2025-04-10)
PROC: 0RG40A0 Fusion of Cervicothoracic Vertebral Joint with Interbody Fusion Device, Anterior Approach, Anterior Column, Open Approach (ICD-10-PCS; 2025-04-10)
PROC: 0RP10AZ Removal of Interbody Fusion Device from Cervical Vertebral Joint, Open Approach (ICD-10-PCS; 2025-04-10)
PROC: 0RG6071 Fusion of Thoracic Vertebral Joint with Autologous Tissue Substitute, Posterior Approach, Posterior Column, Open Approach (ICD-10-PCS; 2025-04-13)
PROC: 0RG20A0 Fusion of 2 or more Cervical Vertebral Joints with Interbody Fusion Device, Anterior Approach, Anterior Column, Open Approach (ICD-10-PCS; 2025-04-13)
PROC: 0RG2071 Fusion of 2 or more Cervical Vertebral Joints with Autologous Tissue Substitute, Posterior Approach, Posterior Column, Open Approach (ICD-10-PCS; 2025-04-13)
PROC: 0RG40A0 Fusion of Cervicothoracic Vertebral Joint with Interbody Fusion Device, Anterior Approach, Anterior Column, Open Approach (ICD-10-PCS; 2025-04-13)
PROC: 0RG4071 Fusion of Cervicothoracic Vertebral Joint with Autologous Tissue Substitute, Posterior Approach, Posterior Column, Open Approach (ICD-10-PCS; 2025-04-13)
PROC: 00NW0ZZ Release Cervical Spinal Cord, Open Approach (ICD-10-PCS; 2025-04-13)
PROC: 00NX0ZZ Release Thoracic Spinal Cord, Open Approach (ICD-10-PCS; 2025-04-13)
PROC: 0RG60A0 Fusion of Thoracic Vertebral Joint with Interbody Fusion Device, Anterior Approach, Anterior Column, Open Approach (ICD-10-PCS; principal; 2025-04-13 15:45)
DX: T84.216A Breakdown (mechanical) of internal fixation device of vertebrae, initial encounter (principal); S12.600A Unspecified displaced fracture of seventh cervical vertebra, initial encounter for closed fracture; S12.500A Unspecified displaced fracture of sixth cervical vertebra, initial encounter for closed fracture; E03.9 Hypothyroidism, unspecified; I10 Essential (primary) hypertension; F32.A Depression, unspecified; M50.023 Cervical disc disorder at C6-C7 level with myelopathy; D62 Acute posthemorrhagic anemia; R26.89 Other abnormalities of gait and mobility; M48.02 Spinal stenosis, cervical region; E83.42 Hypomagnesemia; F41.9 Anxiety disorder, unspecified; E87.6 Hypokalemia; M53.2X2 Spinal instabilities, cervical region; H91.93 Unspecified hearing loss, bilateral; Z97.4 Presence of external hearing-aid; Z79.890 Hormone replacement therapy; Z79.899 Other long term (current) drug therapy; Z91.81 History of falling; Z96.652 Presence of left artificial knee joint; Z96.611 Presence of right artificial shoulder joint
CPT/HCPCS: 72040; 72125; 80048; 80053; 83735; 85025; 85027